=== PATIENT | female | born 1950 | race Caucasian/White ===

== ENCOUNTER 2020-06-17 17:50 | Inpatient (IN) | payer MEDICARE, OTHER ==
[~2020-06-17] VITALS: Ht 162.6 cm; Wt 108.2 kg
[~2020-06-17 17:50] MED LIST: ANAS1TAB50 PO; CALC-1026 PO; FOLI1TAB16 PO; GABA300C PO; MOME17SP; MONT10TA22 PO; RISE35TA PO; SERT50TA PO; VIT500LI PO; WARF5TAB PO
[2020-06-17] MEDS ORDERED: ALBUTEROL FS 2.5 MG/3 ML VIAL.NEB ONE (17:58)
[2020-06-17] MEDS ORDERED: ALBUTEROL FS 2.5 MG/3 ML VIAL.NEB NEB ONE (18:00)
[2020-06-17] MEDS ORDERED: methylPREDNISolone SOD SUCC 125 MG/2ML VIAL IV ONE (18:00)
[2020-06-17] MEDS ORDERED: IPRATROPIUM NEB FS 0.5 MG/2.5 ML AMPUL.NEB NEB ONE (18:00)
[2020-06-17] MEDS ORDERED: IV NS 0.9% 500 ML IV ONE (18:00)
[2020-06-17] MEDS ORDERED: Magnesium 1GM/D5W 100ML PREMIX 100 ML IV SCH (18:00)
[2020-06-17] MEDS ORDERED: Magnesium 1GM/D5W 100ML PREMIX 100 ML IV ONE (18:03)
[2020-06-17] MEDS ORDERED: methylPREDNISolone SOD SUCC 125 MG/2ML VIAL ONE (18:03)
--- NOTE | 2020-06-17 18:54 | NUR ---
BIBRA39 FROM HOME, C/O SOB AND LOWER ABDOMINAL PAIN, GIVEN ALBUTEROL TX IN FIELD. O2 SAT 88%RA. BG 172. PLACED AT 2LPM O2 VIA NC, O2 SATURATION AFTER WAS TO ER BED 08, HOOKED TO DIRECTOR SHIP, BP CUFF AND POX, CHANGED TO HOSP GOWN, WARM BLANKET PROVIDED, PATIENT AAOx 4, NAD NOTED, DR LOCO AT BEDSIDE
--- NOTE | 2020-06-17 19:12 | NUR ---
ONGOING BREATHING TX
--- NOTE | 2020-06-17 19:13 | NUR ---
REPORT GIVEN TO FARIDEH RICARDO FOR DEVANTE
[2020-06-17 19:29] LABS: CALCIUM, SERUM 8.5 mg/dL (8.5-10.1); CARBON DIOXIDE 31 mmol/L (21-32); CHLORIDE 100 mmol/L (98-107); CREATININE 0.9 mg/dL (0.6-1.3); GLUCOSE 175 mg/dL (74-106); POTASSIUM 4.2 mmol/L (3.5-5.1); SODIUM SERUM 135 mmol/L (136-145); UREA NITROGEN, BLOOD 15 mg/dL (7-18)
[2020-06-17 19:41] LABS: ALANINE AMINOTRANSFERASE 15 U/L (12-78); ALBUMIN 2.7 g/dL (3.4-5.0); ALKALINE PHOSPHATASE 41 U/L (46-116); ASPARTATE AMINOTRANSFERASE 13 U/L (15-37); B-TYPE NATRIURETIC PEPTIDE 171 PG/ML (0-125); BILIRUBIN,DIRECT 0.2 mg/dL (0.0-0.2); BILIRUBIN,TOTAL 0.6 mg/dL (0.2-1.0); TOTAL PROTEIN, SERUM 6.7 g/dL (6.4-8.2)
--- NOTE | 2020-06-17 19:59 | NUR ---
PATIENT PLACED ON 2L OF NASAL CANNULA.
--- NOTE | 2020-06-17 19:59 | NUR ---
BREATHING TREATMENT FINISHED.
[2020-06-17 20:08] LABS: BASOPHILS % (AUTO) 0.9 % (0.0-2.0); EOSINOPHILS % (AUTO) 0.7 % (0.0-6.0); HEMATOCRIT 37 % (33-45); HEMOGLOBIN 11.6 g/dL (11.5-14.8); LYMPHOCYTES # (AUTO) 0.6 /CMM (0.8-4.8); LYMPHOCYTES % (AUTO) 21.3 % (20.0-44.0); MEAN CORPUSCULAR HGB CONC 31 g/dl (31.0-36.0); MEAN CORPUSCULAR VOLUME 85 fL (82-100); MONOCYTES # (AUTO) 0.1 /CMM (0.1-1.30); MONOCYTES % (AUTO) 2.5 % (2.0-12.0); NEUTROPHILS # (AUTO) 2.1 /CMM (1.8-8.9); NEUTROPHILS % (AUTO) 74.6 % (43.0-81.0); RED BLOOD CELL COUNT(AUTO) 4.38 MIL/uL (4.0-5.2); WHITE BLOOD COUNT (AUTO) 2.8 K/uL (4.3-11.0)
--- NOTE | 2020-06-17 20:12 | NUR ---
REC'D NEG COVID RESULTS. AWARE
--- NOTE | 2020-06-17 20:26 | NUR ---
called [facility]. [employer] consultant was paged
[2020-06-17] MEDS ORDERED: HYDROCODONE/APAP 5/325MG TABLET ONE (20:30)
[2020-06-17] MEDS ORDERED: HYDROCODONE/APAP 5/325MG TABLET PO ONE (20:30)
--- NOTE | 2020-06-17 20:30 | NUR ---
PATIENT C/O PAIN MD NOTIFIED.
[2020-06-17 20:56] LABS: PLATELET COUNT (AUTO) 78 /CMM (150-450)
[2020-06-17 20:59] LABS: EOSINOPHILS % (MANUAL) 2 % (0-4); LYMPHOCYTES % (MANUAL) 25 % (16-48); MONOCYTES % (MANUAL) 3 % (0-11.0); NEUTROPHILS % (MANUAL) 70 (42-76)
--- NOTE | 2020-06-17 21:01 | NUR ---
REPORT GIVEN TO AMANDA RICARDO FOR DEVANTE.
--- NOTE | 2020-06-17 21:25 | NUR ---
VICE PRESIDENT PAYERVB NET PROGRAMMER NOTE ADMITTED 70F PATIENT WITH ADMITTING DIAGNOSIS OF COPD EXACERBATION. HX OF COPD, HTN. LEFT BREAST CANCER, HX OF LLE DVT, LARGE VENTRAL HERNIA, ALCOHOLISM. PT A/O X4. BREATHING EVEN AND UNLABORED WITH NO SOB ON 2LPM OF O2. 02 SATURATION 99%. BODY ASSESSMENT DONE. RIGHT HAND IV 22G NOTED. PATENT AND INTACT. BED BATH PROVIDED. BELONGING INVENTORY COMPLETED. ALL NEEDS RENDERED. KEPT CLEAN AND DRY. BED IN LOWEST POSITIONED. CALL LIGHT WITHIN REACH. WILL CONTINUE TO MONITOR.
--- NOTE | 2020-06-17 21:32 | NUR ---
TAKEN UP TO ASSIGNED ROOM FOR DEVANTE.
[2020-06-17] MEDS ORDERED: ACETAMINOPHEN 325 MG TABLET PO PRN (22:30)
[2020-06-17] MEDS ORDERED: FUROSEMIDE 20 MG/2 ML VIAL IV SCH (22:30)
[2020-06-17] MEDS ORDERED: IPRATROPIUM NEB FS 0.5 MG/2.5 ML AMPUL.NEB NEB PRN (22:30)
[2020-06-17] MEDS ORDERED: MORPHINE SULFATE INJ 2 MG/ML DISP.SYRIN IV PRN (22:30)
[2020-06-17] MEDS ORDERED: ALBUTEROL FS 2.5 MG/0.5 ML VIAL.NEB NEB PRN (22:30)
[2020-06-17] MEDS ORDERED: MAGNESIUM HYDROXIDE 30 ML UDC PO PRN (22:30)
[2020-06-17] MEDS ORDERED: TEMAZEPAM 15 MG CAPSULE PO PRN (22:30)
[2020-06-17 22:54] VITALS: BP 106/53
[2020-06-17] MEDS ORDERED: LEVOFLOXACIN 500 MG /D5W 100ML 100 ML IV ONE (23:12)
[2020-06-17] MEDS: LEVOFLOXACIN 500 MG /D5W 100ML 500 MG in PREMIX 1 EA IV SCH (23:25)
[2020-06-18] VITALS: BP 105/33
--- NOTE | 2020-06-18 00:01 | NUR ---
BOAT CAMP OPERATOR NOTE INFORMED DR. HALL THAT PT STATED SHE HAS SEVER ANXIETY AND INSOMNIA. PT STATED SHE TAKES AT HOME OXYCIDINE 5MG Q6 ROUTINE, AMBIEN 10 MG QHS, TRAZADONE 100MG QHS, XANAZ 1MG TID AND PRN. PT ALSO STATED SHE IS DIABETIC AND TAKING INSULIN AT HOME. INFORMED MD MEDICATION RECONCILIATION NEEDS TO BE DONE. WILL CONTINUE TO FOLLOW UP WITH MD FOR FURTHER ORDERS.
--- NOTE | 2020-06-18 00:09 | NUR ---
HOTEL ADMINISTRATIVE ASSISTANT NOTE NEW ORDER RECEIVED FROM DR. HALL TO DC RESTORIL 7.5MG AND START AMBIEN 10MG PO QHS PRN PER PT REQUEST. NEW ORDER NOTED AND CARRIED OUT.
[2020-06-18] MEDS ORDERED: ZOLPIDEM TARTRATE 10 MG TABLET PO PRN (00:30)
[2020-06-18] MEDS ORDERED: DEXTROSE 50%-WATER 50 ML DISP.SYRIN IV PRN (00:30)
[2020-06-18] MEDS: BLOOD SUGAR DIAGNOSTIC 1 EACH STRIP IN SCH ×5 (00:48→22:21)
[2020-06-18] MEDS: TRAZODONE 50 MG TABLET PO SCH ×2 (00:52→22:00)
[2020-06-18] MEDS: *INSULIN REGULAR(HUMULIN R)HUM 100 UNIT/ML VIAL SQ PRN ×2 (00:59→22:22)
--- NOTE | 2020-06-18 03:00 | NUR ---
CONSTRUCTION COORDINATOR NOTE RH IV SITE DISLODGED. NEW IV REINSERTED ON LEFT FOREARM WITH 22 G.PT TOLERATED PROCEDURE WELL. GOOD BLOOD RETURN NOTED.
[2020-06-18 04:00] VITALS: BP 122/68
[2020-06-18] MEDS: methylPREDNISolone SOD SUCC 40 MG/ML VIAL IV SCH ×3 (04:56→22:00)
[2020-06-18] MEDS: oxyCODONE IR immediate release 5 MG PO PRN ×2 (04:57→12:13)
[2020-06-18 06:33] LABS: BASOPHILS % (AUTO) 0.3 % (0.0-2.0); EOSINOPHILS % (AUTO) 0.1 % (0.0-6.0); HEMATOCRIT 35 % (33-45); LYMPHOCYTES # (AUTO) 0.1 /CMM (0.8-4.8); LYMPHOCYTES % (AUTO) 8.4 % (20.0-44.0); MEAN CORPUSCULAR HGB CONC 31 g/dl (31.0-36.0); MEAN CORPUSCULAR VOLUME 85 fL (82-100); NEUTROPHILS # (AUTO) 1.4 /CMM (1.8-8.9); NEUTROPHILS % (AUTO) 89.2 % (43.0-81.0); PLATELET COUNT (AUTO) 62 /CMM (150-450); RED BLOOD CELL COUNT(AUTO) 4.13 MIL/uL (4.0-5.2)
[2020-06-18 06:56] LABS: ALANINE AMINOTRANSFERASE 12 U/L (12-78); ALBUMIN 2.4 g/dL (3.4-5.0); ALKALINE PHOSPHATASE 34 U/L (46-116); ASPARTATE AMINOTRANSFERASE 18 U/L (15-37); BILIRUBIN,TOTAL 0.4 mg/dL (0.2-1.0); CALCIUM, SERUM 8.4 mg/dL (8.5-10.1); CARBON DIOXIDE 26 mmol/L (21-32); CHLORIDE 102 mmol/L (98-107); CREATININE 0.9 mg/dL (0.6-1.3); GLUCOSE 177 mg/dL (74-106); MAGNESIUM 2.3 mg/dL (1.8-2.4); PHOSPHORUS 3.3 mg/dL (2.5-4.9); POTASSIUM 4.7 mmol/L (3.5-5.1); SODIUM SERUM 136 mmol/L (136-145); TOTAL PROTEIN, SERUM 6.2 g/dL (6.4-8.2); UREA NITROGEN, BLOOD 15 mg/dL (7-18)
--- NOTE | 2020-06-18 07:00 | NUR ---
PLATFORM POWER TECHNICIAN RECEIVED PATIENT IN BED, ASLEEP AND EASILY AROUSED. PATIENT STATED SHE IS COMFORTABLE. A/OX4, ABLE TO MAKE NEEDS KNOWN. ON 02 2LMP VIA NASAL CANNULA. ON HEART MONITOR, SR WITH PVC. WITH PERINEAL REDNESS AND LLE DISCOLORATION. NO S/S OF ANY SKIN BREAKDOWN. PATIENT IS AMBULATORY WITH ASSIST. IV LFA 22G. PATENT AND INTACT, FLUSHING WELL. RECEIVED PAIN MEDICATION 0457. PAIN MEDICATION EFFECTIVE, NO S/S OF ANY PAIN AT THIS TIME. ON ACCUCHECK, NO S/S OF ANY HYPO/HYPERGLYCEMIA. PATIENT INDEPENDENTLY TURNS. RECEIVED REPORT FROM PM SHIFT OF WBC 1.6, WILL FOLLOW UP WITH MD. BED LOCKED AND IN LOWEST POSITION. 2XRAILS UP. CALL LIGHT WITHIN REACH. ALL SAFETY MEASURES IMPLEMENTED PER HOSPITAL PROTOCOL.
[2020-06-18 07:11] LABS: WHITE BLOOD COUNT (AUTO) 1.6 K/uL (4.3-11.0)
[2020-06-18 07:13] LABS: CHOLESTEROL 163 mg/dL (<200); HDL CHOLESTEROL 55 mg/dL (40-60); LDL 98 mg/dL (0-99); TRIGLYCERIDES 43 mg/dL (30-150)
--- NOTE | 2020-06-18 07:15 | NUR ---
pattern keeper note spoke with kyara from lab with wbc of 1.6 reported . lab value endorsed to joy RICARDO.
--- NOTE | 2020-06-18 07:18 | NUR ---
returned goods repairer closing note PT IN BED. ASLEEP BUT EASILY AROUSABLE. A/O X4. BREATHING EVEN AND UNLABORED WITH NO SOB ON 2LPM OF O2. LFA IV 22G PATENT AND INTACT. DENIES ANY PAIN OR DISCOMFORT. ALL NEEDS RENDERED. KEPT CLEAN AND DRY. BED IN LOWEST POSITIONED. CALL LIGHT WITHIN REACH. WILL ENDORSE TO AM NURSE FOR CONTINUITY OF CARE.
[2020-06-18 08:00] VITALS: BP 110/48
--- NOTE | 2020-06-18 08:00 | NUR ---
ARMATURE WINDER REPAIR PATIENT EXPERIENCING HIGH LEVEL OF ANXIETY. TALKED TO PATIENT IN REGARDS TO BREATH CONTROL AND RELAXATION TECHNIQUES. PATIENT EDUCATION 3X TIMES.
[2020-06-18] MEDS ORDERED: TBO-FILGRASTIM 300 MCG/0.5 ML SYRINGE SQ ONE (09:00)
--- NOTE | 2020-06-18 09:39 | NUR ---
WOUND CARE CONSULT: PT PRESENTS WITH RASHES TO SKINFOLDS AND BUTTOCKS WELL LEFT BREAST WOUND, PRESENT ON ADMISSION. RECOMMEND SURGICAL CONSULT. DR LAURYN MEDINA NOTIFIED OF CONSULT REQUEST. RECOMMENDATIONS MADE FOR WOUND CARE AND SKIN PROTECTION. DISCUSSED WITH NURSING STAFF. [facility]. IN AGREEMENT WITH PLAN OF CARE. Addendum: 06/18/20 at 0942 by WALTER CHIU WNDNU Amended: Links added.
[2020-06-18] MEDS: PANTOPRAZOLE 40 MG TABLET.DR PO SCH (09:42)
[2020-06-18] MEDS: ONDANSETRON HCL/PF 4 MG/2 ML VIAL IVP PRN ×2 (09:42→17:24)
[2020-06-18] MEDS: FUROSEMIDE 40 MG/4 ML VIAL IV SCH ×3 (09:42→17:24)
[2020-06-18] MEDS: FLUTICASONE/VILANTEROL 1 EACH BLST.W.DEV IH SCH (09:42)
[2020-06-18] MEDS: DOCUSATE SODIUM 100 MG CAPSULE PO SCH ×2 (09:44→17:21)
[2020-06-18] MEDS: NICOTINE PATCH (21MG) 21 MG PATCH.TD24 TD SCH (09:45)
[2020-06-18] MEDS: INSULIN REGULAR, HUMAN 100 UNIT/ML 3 ML VIAL SQ PRN ×3 (09:47→17:47)
[2020-06-18] MEDS: ALPRAZOLAM 1 MG TABLET PO PRN ×2 (09:53→23:28)
[2020-06-18] MEDS ORDERED: Z GUARD REMEDY 2 OZ OINT TP PRN (10:00)
[2020-06-18] MEDS: Z GUARD REMEDY 2 OZ OINT TP SCH (10:06)
[2020-06-18] MEDS ORDERED: WARF-58 PO (10:14)
[2020-06-18] MEDS ORDERED: SULI200T4 PO (10:14)
[2020-06-18] MEDS ORDERED: PROP10TA68 PO (10:14)
[2020-06-18] MEDS ORDERED: POTA8TAB3 PO (10:14)
[2020-06-18] MEDS ORDERED: INSU100I14 SQ (10:14)
[2020-06-18] MEDS ORDERED: SPIR25TA6 PO (10:14)
[2020-06-18] MEDS ORDERED: SUCR1TAB PO (10:14)
[2020-06-18] MEDS ORDERED: BACL10TA PO (10:14)
[2020-06-18] MEDS ORDERED: OXYC5TAB3 PO (10:14)
[2020-06-18] MEDS ORDERED: ERGO500014 PO (10:14)
[2020-06-18] MEDS ORDERED: TRAZ-257 PO (10:14)
[2020-06-18] MEDS ORDERED: ALPR2TAB7 PO (10:14)
[2020-06-18] MEDS ORDERED: OMEP40CA13 PO (10:14)
[2020-06-18] MEDS ORDERED: ALEN70TA6 PO (10:14)
[2020-06-18 10:55] LABS: LYMPHOCYTES % (MANUAL) 8 % (16-48); MONOCYTES % (MANUAL) 6 % (0-11.0); NEUTROPHILS % (MANUAL) 86 (42-76)
[2020-06-18 12:00] VITALS: BP 116/34
[2020-06-18] MEDS: GABAPENTIN 300 MG CAPSULE PO SCH ×2 (13:05→17:21)
[2020-06-18] MEDS: BACLOFEN (10 MG) 10 MG TABLET PO SCH ×2 (13:06→17:26)
[2020-06-18] MEDS: ANASTROZOLE 1 MG TABLET PO SCH (13:06)
[2020-06-18] MEDS: ALBUTEROL HALF STRENGTH 1.25 MG/3 ML VIAL.NEB NEB SCH ×2 (13:30→20:50)
[2020-06-18] MEDS: IPRATROPIUM NEB FS 0.5 MG/2.5 ML AMPUL.NEB NEB SCH ×2 (13:30→20:50)
--- NOTE | 2020-06-18 15:46 | NUR ---
SS Consult: Mitchell Moise ordered SS consult for this 70-year old [facility] Female in [place] who is being treated for COPD. Per EMR, the pt. has medical Hx of Stage III Cancer in Left Breast ; DVT (Left leg); Cirrhosis. The pt. is lying in bed awake and was receptive to meeting with SW. The pt. is alert and oriented x 4. Per pt., she lives alone at home as her , Mohan Nicholas 4.5 years ago. The pt. began crying and stated that the loss of her as well as the decline of health have impacted her emotional well-being. The pt. stated that she feels depressed. Pt. stated she has no psych history or diagnoses. SW used validation and normalized her feelings. SW offered Home Health SS consult upon discharge for potential in-home therapy and resource referrals. The pt. expressed understanding and was agreeable and stated, Yes, thank you. The pt. stated that she does not have any family in the [place] and her only son resides [place]. Per pt., her point of contact is her long-time friend, Ramona Beverly [phone]. The pt. stated she smokes 15 to 20 cigarettes/day and denies current ETOH consumption. The pt. stated that she has a [facility] caregiver that cooks and cleans her home about 6 hrs./day. Pt stated that she has nurse for ADLs, as well as wound nurse. The pt. stated that she ambulates from the bed to the bathroom in her home. Pt. may require front wheel walker or wheel chair upon discharge as she is currently too weak to ambulate. Per pt. She received $928.72 in SSI as well as food stamps. SW notified the care process manager, Ivis who will follow up with discharge planning.
[2020-06-18 16:00] VITALS: BP 109/34
[2020-06-18] MEDS ORDERED: SULINDAC 200 MG TABLET PO SCH (17:00)
--- NOTE | 2020-06-18 17:11 | NUR ---
Please obtain pathology and medical records from primary oncologist Liya Clinton
[2020-06-18] MEDS: SUCRALFATE 1 G TABLET PO SCH ×2 (17:21→22:00)
[2020-06-18] MEDS: PROPRANOLOL HCL 10 MG TABLET PO SCH (17:23)
[2020-06-18] MEDS: CLOTRIMAZOLE 1% 15 GM TUBE TP SCH (17:25)
[2020-06-18 17:52] LABS: IRON, SERUM 229 ug/dl (50-175); TOTAL IRON BINDING CAPACITY 306 ug/dl (250-450)
[2020-06-18 18:07] LABS: FERRITIN 135 ng/mL (8-388)
--- NOTE | 2020-06-18 19:20 | NUR ---
RN OPENING NOTES: RECEIVED PT A/OX4; PATIENT IN BED RESTING COMFORTABLY. PATIENT IN NO S/SX OF ACUTE DISTRESS AT THIS TIME. NO SOB NOTED. PATIENT'S BREATHING IS EVEN AND UNLABORED. PATIENT IS ON 2L OF OXYGEN VIA NC; TOLERATING WELL. PATIENT ON CARDIAC DIET AT THIS TIME. PATIENT ON TELE MONITORING READING SINUS RHYTHM HR IS @70s AT THE TIME OF RECEIPT. NOTED IV SITE ON L FOREARM #22 ; PATENT, INTACT AND FLUSHING WELL NO S/S OF INFECTION OR INFILTRATION. WITH IV FLUID RUNNING ORDERED. SAFETY MEASURES HAVE BEEN PROVIDED AND IMPLEMENTED. PATIENT BED ALARM IS ON. HEAD OF BED ELEVATED. BED IS LOCKED, IN LOWEST POSITION AND SIDE RAILS UP. CALL LIGHT WITHIN REACH OF THE PATIENT.WILL CONTINUE TO MONITOR AND REASSESS FOR ANY CHANGES AND WILL CARRY OUT ANY ONGOING AND ACTIVE MD ORDER.
--- NOTE | 2020-06-18 19:34 | NUR ---
SUPERVISOR STAVE CUTTING PATIENT STABLE AT THIS TIME. PATIENT A/O X4 PATIENT SHOWS ANXIETY. WITH CARE. PATIENT ALSO STABLE SHE DOES NOT LIKE BEING ALONE. ALL MEDICATION GIVEN. LFA 20 PATIENT LINES PATENT AND INTACT. ALL WOUND TX COMPLETED. BED LOCKED LOWEST POSITION CALL LIGHT WITH IN REACH ALL SAFETY MEASURE IMPLEMENTED PER HOSPITAL POLICY. ALL ORDERS COMPLETE 2X RAILS. UP
[2020-06-18 20:00] VITALS: BP 113/52
--- NOTE | 2020-06-18 21:45 | NUR ---
RN NOTES RECEIVED CALL FROM LAB, SPOKE WITH OPHELIA. LACTIC ACID 2.8. WILL INFORM MD REGARDING CRITICAL LAB RESULT. CHILD CARE DEVELOPMENT SPECIALIST MADE AWARE.
[2020-06-18] MEDS: LEVOFLOXACIN 500 MG /D5W 100ML 500 MG in PREMIX 1 EA IV SCH (22:00)
--- NOTE | 2020-06-18 22:00 | NUR ---
RN NOTES NO CHANGE IN PATIENT CONDITION AT THIS TIME PATIENT VITALS STABLE, NO SIGNS OF ACUTE RESPIRATORY DISTRESS. TIME LOCK EXPERT MADE AWARE. WILL CONTINUE TO MONITOR AND REASSESS FOR ANY CHANGES THROUGHOUT THE SHIFT.
--- NOTE | 2020-06-18 22:05 | NUR ---
RN NOTES RECEIVED CALL FROM RADIOLOGY- US DVT. RESULT : 1. DEEP VENOUS THROMBOSIS INVOLVING THE RIGHT SUPERFICIAL FEMORAL AND POPLITEAL VEINS. 2. LEFT COMMON FEMORAL AND SUPERFICIAL FEMORAL VEINS COULD NOT BE ACCESSED AND THE EVALUATED. 3. PATENT LEFT POPLITEAL VEIN -WILL INFORM MD/ONCALLMD. COOK SPECIALTY MADE AWARE.
--- NOTE | 2020-06-18 23:00 | NUR ---
RN NOTES COMMUNICATED WITH /SHIRA GRESHAM REGARDING THE FOLLOWIN. RESULT OF US DVT FOLLOWS: DEEP VENOUS THROMBOSIS INVOLVING THE RIGHT SUPERFICIAL FEMORAL AND POPLITEAL VEINS. LEFT COMMON FEMORAL AND SUPERFICIAL FEMORAL VEINS COULD NOT BE ACCESSED AND THE EVALUATED. PATENT LEFT POPLITEAL VEIN. 2. PT REQUEST FOR SLEEPING MEDS : AMBIEN 3. LACTIC ACID RESULT CRITICAL LAB 2.8 -DR. HALL ORDERED AMBIEN 10MG PRN -PHOTOGRAPH TINTER MADE AWARE. Addendum: 06/19/20 at 0325 by SAUL SYED RN -PER DR. HALL THERE'S NO ORDERS FOR US DVT RESULT AND FOR THE CRITICAL LAB (LACTIC ACID) PHOTOGRAPH TINTER MADE AWARE.
[2020-06-18] MEDS: ZOLPIDEM TARTRATE 10 MG TABLET PO PRN (23:29)
[2020-06-19] VITALS: BP 102/51
[2020-06-19] MEDS: IPRATROPIUM NEB FS 0.5 MG/2.5 ML AMPUL.NEB NEB SCH ×4 (01:17→20:03)
[2020-06-19] MEDS: ALBUTEROL HALF STRENGTH 1.25 MG/3 ML VIAL.NEB NEB SCH ×4 (01:18→20:03)
--- NOTE | 2020-06-19 02:00 | NUR ---
RN NOTES NO CHANGE IN PATIENT CONDITION AT THIS TIME PATIENT VITALS STABLE, NO SIGNS OF ACUTE RESPIRATORY DISTRESS. HAIR SPECIALIST MADE AWARE. WILL CONTINUE TO MONITOR AND REASSESS FOR ANY CHANGES THROUGHOUT THE SHIFT.
[2020-06-19 04:00] VITALS: BP 102/52
[2020-06-19] MEDS: methylPREDNISolone SOD SUCC 40 MG/ML VIAL IV SCH ×3 (04:13→21:08)
[2020-06-19] MEDS: oxyCODONE IR immediate release 5 MG PO PRN ×3 (04:13→18:55)
--- NOTE | 2020-06-19 05:00 | NUR ---
RN NOTES RN AND DISPATCH ASSOCIATE TRIED TO CLEAN PT PART OF PATIENT/TOTAL CARE, BUT PATIENT REFUSED. EXPLAINED RISK AND BENEFITS BUT PT REFUSED.CHARGE NURSE MADE AWARE.
--- NOTE | 2020-06-19 06:44 | NUR ---
RN CLOSING NOTES PATIENT REMAINS IN ROOM IN NO SIGNS OF RESPIRATORY DISTRESS. PATIENT SATURATING 95% OF 02. VITAL SIGNS WNL. IV LINE MAINTAINED, INTACT, PATENT AND FLUSHING, NO SITE REDNESS OR INFILTRATION. SAFETY PRECAUTIONS IN PLACE AND COMFORT MEASURES RENDERED. BED IN LOWEST POSITION, CALL LIGHT WITHIN REACH, BREAKS ON, SIDE RAILS UP. ALL NEEDS ATTENDED, MEDICATIONS GIVEN SCHEDULED AND ORDERED ; SHIFT ASSESSMENT/BEDBATH/SKIN CARE DONE. PATIENT KEPT CLEAN AND DRY. WILL ENDORSE TO INCOMING SHIFT FOR DEVANTE WITH ALL PERTINENT INFO REGARDING PATIENT STATUS.
[2020-06-19 06:54] LABS: ALANINE AMINOTRANSFERASE 17 U/L (12-78); ALBUMIN 2.6 g/dL (3.4-5.0); ALKALINE PHOSPHATASE 46 U/L (46-116); ASPARTATE AMINOTRANSFERASE 16 U/L (15-37); BASOPHILS # (AUTO) 0.1 /CMM (0.0-0.2); BILIRUBIN,TOTAL 0.6 mg/dL (0.2-1.0); CALCIUM, SERUM 8.6 mg/dL (8.5-10.1); CARBON DIOXIDE 27 mmol/L (21-32); CHLORIDE 99 mmol/L (98-107); CREATININE 0.9 mg/dL (0.6-1.3); GLUCOSE 163 mg/dL (74-106); HEMATOCRIT 38 % (33-45); HEMOGLOBIN 12.1 g/dL (11.5-14.8); LYMPHOCYTES # (AUTO) 2.4 /CMM (0.8-4.8); MAGNESIUM 2.1 mg/dL (1.8-2.4); MEAN CORPUSCULAR HGB CONC 32 g/dl (31.0-36.0); MEAN CORPUSCULAR VOLUME 83 fL (82-100); MONOCYTES # (AUTO) 0.4 /CMM (0.1-1.30); MONOCYTES % (AUTO) 4.4 % (2.0-12.0); NEUTROPHILS # (AUTO) 5.7 /CMM (1.8-8.9); NEUTROPHILS % (AUTO) 66.6 % (43.0-81.0); PHOSPHORUS 3.6 mg/dL (2.5-4.9); PLATELET COUNT (AUTO) 64 /CMM (150-450); POTASSIUM 4.9 mmol/L (3.5-5.1); RED BLOOD CELL COUNT(AUTO) 4.54 MIL/uL (4.0-5.2); SODIUM SERUM 134 mmol/L (136-145); TOTAL PROTEIN, SERUM 6.8 g/dL (6.4-8.2); UREA NITROGEN, BLOOD 22 mg/dL (7-18); WHITE BLOOD COUNT (AUTO) 8.6 K/uL (4.3-11.0)
[2020-06-19 08:00] VITALS: BP 106/50
--- NOTE | 2020-06-19 08:00 | NUR ---
RN OPENING NOTES PATIENT IS RESTING IN BED IN NO SIGNS OF RESPIRATORY DISTRESS NOTED. PATIENT SATURATING 95% OF 02 WITH 2L NASAL CANNULA. IV LINE MAINTAINED IN LFA #22, INTACT, PATENT AND FLUSHING, NO SITE REDNESS OR INFILTRATION NOTED. SAFETY PRECAUTIONS ARE IMPLEMENTED BY HOSPITAL PROTOCOL. BED IS IN LOWEST POSITION, CALL LIGHT WITHIN REACH AND SIDE RAILS UPX2 . WILL CONTINUE TO MONITOR.
[2020-06-19] MEDS: CALCIUM CARBONATE (1250) 500 MG TABLET PO SCH (08:12)
[2020-06-19] MEDS: NICOTINE PATCH (21MG) 21 MG PATCH.TD24 TD SCH (08:12)
[2020-06-19] MEDS: DOCUSATE SODIUM 100 MG CAPSULE PO SCH ×2 (08:12→17:15)
[2020-06-19] MEDS: PROPRANOLOL HCL 10 MG TABLET PO SCH ×3 (08:17→17:00)
[2020-06-19] MEDS: SUCRALFATE 1 G TABLET PO SCH ×4 (08:17→21:08)
[2020-06-19] MEDS: GABAPENTIN 300 MG CAPSULE PO SCH ×3 (08:17→17:15)
[2020-06-19] MEDS: ASCORBIC ACID 500 MG TABLET PO SCH (08:17)
[2020-06-19] MEDS: SERTRALINE HCL 50 MG TABLET PO SCH ×2 (08:17→09:00)
[2020-06-19] MEDS: ALPRAZOLAM 1 MG TABLET PO PRN ×3 (08:17→21:08)
[2020-06-19] MEDS: SPIRONOLACTONE 25 MG TABLET PO SCH (08:18)
[2020-06-19] MEDS: FOLIC ACID 1 MG TABLET PO SCH (08:18)
[2020-06-19] MEDS: PANTOPRAZOLE 40 MG TABLET.DR PO SCH (08:18)
[2020-06-19] MEDS: BACLOFEN (10 MG) 10 MG TABLET PO SCH ×3 (08:18→17:15)
[2020-06-19] MEDS: FLUTICASONE PROPIONATE 16 GM BOTTLE NS SCH (08:19)
[2020-06-19] MEDS: FLUTICASONE/VILANTEROL 1 EACH BLST.W.DEV IH SCH (08:19)
[2020-06-19] MEDS: BLOOD SUGAR DIAGNOSTIC 1 EACH STRIP IN SCH ×4 (08:19→22:59)
[2020-06-19] MEDS: Z GUARD REMEDY 2 OZ OINT TP SCH (08:20)
[2020-06-19] MEDS: CLOTRIMAZOLE 1% 15 GM TUBE TP SCH ×2 (08:20→17:16)
[2020-06-19] MEDS: ANASTROZOLE 1 MG TABLET PO SCH (08:56)
[2020-06-19] MEDS: INSULIN REGULAR, HUMAN 100 UNIT/ML 3 ML VIAL SQ PRN ×3 (08:58→18:31)
[2020-06-19 09:00] VITALS: BP 106/50
[2020-06-19] MEDS ORDERED: POLYVINYL ALCOHOL 15 ML BOTTLE EACHEYE PRN (09:00)
[2020-06-19] MEDS ORDERED: ERGOCALCIFEROL (VITAMIN D 2) 50,000 UNIT CAPSULE PO SCH (09:00)
[2020-06-19] MEDS ORDERED: BISACODYL (5 MG) 5 MG TABLET.DR PO PRN (09:00)
[2020-06-19] MEDS ORDERED: MOMETASONE FUROATE NASAL SUSP 17 GM BOTTLE SCH (09:00)
[2020-06-19] MEDS: ONDANSETRON HCL/PF 4 MG/2 ML VIAL IVP PRN ×3 (09:51→21:08)
--- NOTE | 2020-06-19 10:02 | NUR ---
RN NOTES PT REFUSED PROPRANOLOL
--- NOTE | 2020-06-19 10:03 | NUR ---
RN NOTES PT ASKED 2 MG OF ZANAX DOCTOR IS AWARE
--- NOTE | 2020-06-19 10:03 | NUR ---
RN NOTES PT IS FEELING NAUSEATED GAVE ZOFRAN
--- NOTE | 2020-06-19 10:09 | NUR ---
RN NOTES PT REFUSED ZOLOFT STATES MAKES HER CRAZY
[2020-06-19 11:20] LABS: LYMPHOCYTES % (MANUAL) 7 % (16-48); MONOCYTES % (MANUAL) 6 % (0-11.0); NEUTROPHILS % (MANUAL) 87 (42-76)
[2020-06-19] MEDS: FUROSEMIDE 40 MG/4 ML VIAL IV SCH ×3 (11:20→18:55)
[2020-06-19] MEDS: LIDOCAINE 5% (PATCH) 1 EA PATCH TP SCH (11:23)
[2020-06-19] MEDS ORDERED: CALCIUM CARBONATE 500 MG TAB.CHEW PO ONE (14:30)
[2020-06-19 16:00] VITALS: BP 102/48
[2020-06-19] MEDS: MONTELUKAST SODIUM (10MG) 10 MG TABLET PO SCH (17:15)
--- NOTE | 2020-06-19 18:21 | NUR ---
RN CLOSING NOTES PATIENT REMAINS IN ROOM IN NO SIGNS OF RESPIRATORY DISTRESS. PATIENT SATURATING 95% OF 02 VITAL SIGNS WNL. IV LFA #22 LINE MAINTAINED, INTACT, PATENT AND FLUSHING, NO SITE REDNESS OR INFILTRATION. SAFETY PRECAUTIONS ARE IMPLEMENTED BY HOSPITAL POLICY AND COMFORT MEASURES RENDERED. BED IS IN LOWEST POSITION, CALL LIGHT WITHIN REACH, BREAKS ON, SIDE RAILS UPX2. ALL NEEDS WERE ATTENDED, MEDICATIONS GIVEN SCHEDULED AND ORDERED ; SHIFT ASSESSMENT/BEDBATH/SKIN CARE DONE. PATIENT KEPT CLEAN AND DRY. WILL ENDORSE TO INCOMING SHIFT FOR DEVANTE
--- NOTE | 2020-06-19 19:13 | NUR ---
RN NOTES GAVE PT OXYCODONE FOR GENERALIZED PAIN. AND ZOFRAN FOR NAUSEATED.
--- NOTE | 2020-06-19 19:23 | NUR ---
MS RN OPENING NOTES PATIENT AWAKE IN BED. A/OX4. ON 2L NC; NO S/S OF ACUTE RESPIRATORY DISTRESS; BREATHING IS EVEN AND UNLABORED. NO C/O PAIN AT THIS TIME; PER DAY SHIFT RN, PRN OXYCODONE GIVEN AT 1850. IV PRESENT ON LEFT FA, SIZE 22, INTACT & PATENT WITH NS RUNNING TKO. SAFETY MEASURES IN PLACE AND PATIENT'S NEEDS MET. BED LOCKED, HOB ELEVATED, SIDE RAILS X2, CALL LIGHT WITHIN REACH. WILL CONTINUE TO MONITOR.
[2020-06-19 20:00] VITALS: BP_SYST 117; BP_DIAS 42; BP_DIAS 81
[2020-06-19] MEDS: TRAZODONE 50 MG TABLET PO SCH (21:08)
--- NOTE | 2020-06-19 21:43 | NUR ---
CALLED RN @1500 FOR PULMONARY ANGIOGRAM, RN STATES PT IS HARD STICK FOR IV ACCESS. RN SAID WOULD CALL BACK ONCE THEY HAVE IV ACCESS FOR CT SCAN.
[2020-06-19] MEDS: LEVOFLOXACIN 500 MG /D5W 100ML 500 MG in PREMIX 1 EA IV SCH (22:44)
[2020-06-19] MEDS: ZOLPIDEM TARTRATE 10 MG TABLET PO PRN (22:44)
[2020-06-19] MEDS: *INSULIN REGULAR(HUMULIN R)HUM 100 UNIT/ML VIAL SQ PRN (22:59)
[2020-06-20] MEDS: ALBUTEROL HALF STRENGTH 1.25 MG/3 ML VIAL.NEB NEB SCH ×4 (01:30→20:18)
[2020-06-20] MEDS: IPRATROPIUM NEB FS 0.5 MG/2.5 ML AMPUL.NEB NEB SCH ×4 (01:30→20:18)
[2020-06-20] MEDS: oxyCODONE IR immediate release 5 MG PO PRN ×3 (03:26→21:10)
[2020-06-20] MEDS: methylPREDNISolone SOD SUCC 40 MG/ML VIAL IV SCH ×3 (05:23→21:10)
[2020-06-20] MEDS: BLOOD SUGAR DIAGNOSTIC 1 EACH STRIP IN SCH ×4 (06:33→21:40)
[2020-06-20] MEDS: INSULIN REGULAR, HUMAN 100 UNIT/ML 3 ML VIAL SQ PRN ×3 (06:33→16:48)
[2020-06-20] MEDS: ONDANSETRON HCL/PF 4 MG/2 ML VIAL IVP PRN (06:36)
[2020-06-20 06:42] LABS: BASOPHILS # (AUTO) 0.1 /CMM (0.0-0.2); BASOPHILS % (AUTO) 2.2 % (0.0-2.0); EOSINOPHILS % (AUTO) 0.2 % (0.0-6.0); HEMATOCRIT 38 % (33-45); HEMOGLOBIN 11.8 g/dL (11.5-14.8); LYMPHOCYTES # (AUTO) 0.4 /CMM (0.8-4.8); LYMPHOCYTES % (AUTO) 16.7 % (20.0-44.0); MEAN CORPUSCULAR HGB CONC 31 g/dl (31.0-36.0); MEAN CORPUSCULAR VOLUME 85 fL (82-100); MONOCYTES # (AUTO) 0.1 /CMM (0.1-1.30); MONOCYTES % (AUTO) 2.8 % (2.0-12.0); NEUTROPHILS # (AUTO) 1.9 /CMM (1.8-8.9); NEUTROPHILS % (AUTO) 78.1 % (43.0-81.0); PLATELET COUNT (AUTO) 68 /CMM (150-450); RED BLOOD CELL COUNT(AUTO) 4.42 MIL/uL (4.0-5.2); WHITE BLOOD COUNT (AUTO) 2.5 K/uL (4.3-11.0)
--- NOTE | 2020-06-20 07:00 | NUR ---
MS RN OPENING NOTES RECEIVED PT RESTING IN BED AT THIS TIME. AOX4.PATIENT ABLE TO MAKE NEEDS KNOWN. NO SOB NOTED, NO S/S OF ANY ACUTE DISTRESS NOTED. NO C/O PAIN AT THIS TIME. RESPIRATIONS ARE EVEN AND UNLABORED WITH EQUAL RISE AND FALL IN CHEST. GABRIEL MIDLINE, INTACT, PATENT AND FLUSHING WELL. SAFETY PRECAUTION IN PLACE AND MAINTAINED AT ALL TIMES. BED IN LOWEST LOCKED POSITION, HOB ELEVATED, SIDE RAILS UP X 2, CALL LIGHT WITHIN REACH. WILL CONTINUE TO MONITOR
[2020-06-20 07:17] LABS: ALBUMIN 2.6 g/dL (3.4-5.0); BILIRUBIN,TOTAL 0.4 mg/dL (0.2-1.0); CALCIUM, SERUM 8.7 mg/dL (8.5-10.1); CREATININE 1.1 mg/dL (0.6-1.3); MAGNESIUM 1.8 mg/dL (1.8-2.4); PHOSPHORUS 3.5 mg/dL (2.5-4.9); POTASSIUM 4.1 mmol/L (3.5-5.1); TOTAL PROTEIN, SERUM 6.4 g/dL (6.4-8.2)
--- NOTE | 2020-06-20 07:26 | NUR ---
MS RN CLOSING NOTES PATIENT SLEEPING, EASY TO AWAKEN. A/OX4. ON 2L NC; NO S/S OF ACUTE RESPIRATORY DISTRESS; BREATHING IS EVEN AND UNLABORED. NO C/O PAIN. MIDLINE PRESENT ON LEFT UPPER ARM MIDLINE, INTACT & PATENT, NS RUNNING TKO. CURRENTLY NPO; AWAITING CT PULMONARY ANGIOGRAM; CONSENT IN CHART. SAFETY MEASURES IN PLACE AND PATIENT'S NEEDS MET. BED LOCKED, HOB ELEVATED, SIDE RAILS X2, CALL LIGHT WITHIN REACH. ENDORSED TO DAY SHIFT RN PLAN OF CARE.
[2020-06-20] MEDS: PANTOPRAZOLE 40 MG TABLET.DR PO SCH (07:58)
[2020-06-20] MEDS: SUCRALFATE 1 G TABLET PO SCH ×4 (07:59→21:10)
[2020-06-20 08:00] VITALS: BP 116/48
[2020-06-20] MEDS: FLUTICASONE/VILANTEROL 1 EACH BLST.W.DEV IH SCH (08:40)
[2020-06-20] MEDS: SPIRONOLACTONE 25 MG TABLET PO SCH (08:41)
[2020-06-20] MEDS: CALCIUM CARBONATE 500 MG TAB.CHEW PO SCH (08:41)
[2020-06-20] MEDS: DOCUSATE SODIUM 100 MG CAPSULE PO SCH ×2 (08:41→16:32)
[2020-06-20] MEDS: FOLIC ACID 1 MG TABLET PO SCH (08:41)
[2020-06-20] MEDS: GABAPENTIN 300 MG CAPSULE PO SCH ×3 (08:41→16:32)
[2020-06-20] MEDS: CALCIUM CARBONATE (1250) 500 MG TABLET PO SCH (08:41)
[2020-06-20] MEDS: SERTRALINE HCL 50 MG TABLET PO SCH (08:42)
[2020-06-20] MEDS: NICOTINE PATCH (21MG) 21 MG PATCH.TD24 TD SCH (08:42)
[2020-06-20] MEDS: ASCORBIC ACID 500 MG TABLET PO SCH (08:42)
[2020-06-20] MEDS: BACLOFEN (10 MG) 10 MG TABLET PO SCH ×3 (08:42→16:33)
[2020-06-20] MEDS: Z GUARD REMEDY 2 OZ OINT TP SCH (08:44)
[2020-06-20] MEDS: CLOTRIMAZOLE 1% 15 GM TUBE TP SCH ×2 (08:44→16:38)
[2020-06-20] MEDS: PROPRANOLOL HCL 10 MG TABLET PO SCH ×2 (08:46→16:37)
[2020-06-20] MEDS: ANASTROZOLE 1 MG TABLET PO SCH (08:49)
[2020-06-20] MEDS: FLUTICASONE PROPIONATE 16 GM BOTTLE NS SCH (08:59)
[2020-06-20 09:41] LABS: LYMPHOCYTES % (MANUAL) 23 % (16-48); MONOCYTES % (MANUAL) 3 % (0-11.0); NEUTROPHILS % (MANUAL) 74 (42-76)
[2020-06-20] MEDS: ALPRAZOLAM 1 MG TABLET PO PRN (09:41)
--- NOTE | 2020-06-20 09:45 | NUR ---
PT C/O OF ANXIETY AT THIS TIME. VS WNL. PER PT REQUEST [id number] PO Q8HR PRN WAS ADMINISTERED PER ORDER. WILL CONTINUE TO MONITOR
[2020-06-20] MEDS: LIDOCAINE 5% (PATCH) 1 EA PATCH TP SCH (09:48)
[2020-06-20] MEDS ORDERED: CT SWABBABLE VALVE TRANS SET 1 EA INFUS.SET MC ONE (10:19)
[2020-06-20] MEDS ORDERED: IOHEXOL-350 100 ML VIAL IV ONE (10:19)
[2020-06-20] MEDS ORDERED: IV NS 0.9% 250 ML IV ONE (10:19)
--- NOTE | 2020-06-20 10:40 | NUR ---
PT TRANSPORTED FROM UNIT BY BED AT THIS TIME FOR CT PULMONARY ANGIOGRAM. WILL CONTINUE WITH PLAN OF CARE
[2020-06-20] MEDS: FUROSEMIDE 100 MG/10 ML VIAL IV SCH ×3 (10:58→17:55)
--- NOTE | 2020-06-20 11:13 | NUR ---
PT TRANSPORTED TO UNIT BY BED AT THIS TIME FROM CT PULMONARY ANGIOGRAM. WILL CONTINUE WITH PLAN OF CARE
--- NOTE | 2020-06-20 14:35 | NUR ---
PT C/O GENERALIZED PAIN OF 7/10 AT THIS TIME, VS WNL. PER PT REQUEST, OXYCODONE 5MG PO Q6HR PRN ADMINISTERED PER ORDER AT THIS TIME. WILL CONTINUE TO MONITOR
--- NOTE | 2020-06-20 15:00 | NUR ---
UNABLE TO REACH DR WILLEM PITTS ([phone]) TO OBTAIN PATHOLOGY AND MEDICAL RECORD. VIA TELEPHONE EXCHANGE. WILL CONTINUE TO F/U AND CONTINUE WITH PLAN OF CARE
[2020-06-20 16:00] VITALS: BP 93/51
[2020-06-20] MEDS: MONTELUKAST SODIUM (10MG) 10 MG TABLET PO SCH (17:55)
--- NOTE | 2020-06-20 18:58 | NUR ---
MS RN CLOSING NOTES PT AWAKE IN BED AT THIS. PT REMAINED STABLE THROUGHOUT SHIFT. PT KEPT CLEAN AND DRY. ALL CARE, NEEDS, MEDICATIONS AND TREATMENT ADMINISTERED ANTICIPATED PER PROTOCOL. PAIN MANAGEMENT ADMINISTERED PER ORDER. SAFETY PRECAUTION IN PLACE AND MAINTAINED AT ALL TIMES. BED IN LOWEST LOCKED POSITION, HOB ELEVATED, SIDE RAILS UP X 2, CALL LIGHT WITHIN REACH. WILL ENDORSE TO HERB DIGGER NURSE FOR DEVANTE
--- NOTE | 2020-06-20 19:30 | NUR ---
ms rn opeing note received patient in bed. a/ox4. tolerating room air. respirations are even and unlabored. no s/s sob noted. c/o pain at this time, informed patient will need pumper gager apprentice to obtain vitals and check when medication is available. in no apparent distress. iv access in izabella midline patent and saline locked. bed is low and locked,hob elevated in semi perez,s side rials up x2, call light within reach. will continue to monitor.
[2020-06-20 20:00] VITALS: BP 122/65
[2020-06-20] MEDS: *INSULIN REGULAR(HUMULIN R)HUM 100 UNIT/ML VIAL SQ PRN (21:46)
[2020-06-20] MEDS: TRAZODONE 50 MG TABLET PO SCH (22:18)
[2020-06-20] MEDS: LEVOFLOXACIN 500 MG /D5W 100ML 500 MG in PREMIX 1 EA IV SCH (22:24)
[2020-06-20] MEDS: ZOLPIDEM TARTRATE 10 MG TABLET PO PRN (23:15)
--- NOTE | 2020-06-20 23:15 | NUR ---
MS RN NOTE ADMINISTERED PRN AMBIEN 10MG PER PATIENT REQUEST. WILL CONTINUE TO MONITOR.
[2020-06-21] MEDS: ALPRAZOLAM 1 MG TABLET PO PRN (01:15)
[2020-06-21] MEDS: IPRATROPIUM NEB FS 0.5 MG/2.5 ML AMPUL.NEB NEB SCH ×3 (01:30→13:30)
[2020-06-21] MEDS: ALBUTEROL HALF STRENGTH 1.25 MG/3 ML VIAL.NEB NEB SCH ×3 (01:30→13:30)
[2020-06-21] MEDS: methylPREDNISolone SOD SUCC 40 MG/ML VIAL IV SCH ×2 (05:30→12:32)
[2020-06-21] MEDS: oxyCODONE IR immediate release 5 MG PO PRN (05:47)
--- NOTE | 2020-06-21 05:57 | NUR ---
ms rn note administered prn oxy ir for pain 04/05 generalized. will continue to monitor
--- NOTE | 2020-06-21 05:58 | NUR ---
ms rn note patient refused photos to be taken per protocol qsunday. informed her of benefits, continues to refuse. will continue to monitor.
--- NOTE | 2020-06-21 05:59 | NUR ---
ms rn note patient refused to be turned multiple times throughout shift. despite education of risk and benefits continued to refuse.
[2020-06-21] MEDS: BLOOD SUGAR DIAGNOSTIC 1 EACH STRIP IN SCH ×2 (06:33→12:18)
[2020-06-21] MEDS: PANTOPRAZOLE 40 MG TABLET.DR PO SCH (06:33)
[2020-06-21] MEDS: SUCRALFATE 1 G TABLET PO SCH ×2 (06:33→11:09)
[2020-06-21] MEDS: INSULIN REGULAR, HUMAN 100 UNIT/ML 3 ML VIAL SQ PRN ×2 (06:42→12:36)
--- NOTE | 2020-06-21 06:56 | NUR ---
ms rn closing note patient is resting in bed. a/ox4. n 4l/,in via nasal cannula.no resp distress noted. oxy ir given for pain. no distress. iv access maintained in izabella midline patent and saline locked. bed remains low and locked,hob elevated in semi perez,s side rials up x2, call light within reach. will endorse to next shift
--- NOTE | 2020-06-21 07:20 | NUR ---
MS RN OPENING NOTES RECEIVED PT RESTING IN BED. AOX4. ON 4L O2 VIA NC, SATURATING @ 93%. NO SOB NOTED OR ANY ACUTE RESPIRATORY DISTRESS NOTED. NO PAIN REPORTED AT THIS TIME. GABRIEL MIDLINE, INTACT, PATENT AND FLUSHED. SAFETY MEASURES OBSERVED. CALL LIGHT WITHIN REACH. BED LOCKED AND AT LOWEST POSITION WITH SIDE RAILS UP X 2. HOB ELEVATED. WILL CONTINUE TO MONITOR
[2020-06-21 07:50] LABS: BASOPHILS # (AUTO) 0.1 /CMM (0.0-0.2); EOSINOPHILS % (AUTO) 0.4 % (0.0-6.0); HEMATOCRIT 39 % (33-45); HEMOGLOBIN 12.2 g/dL (11.5-14.8); LYMPHOCYTES # (AUTO) 0.3 /CMM (0.8-4.8); MEAN CORPUSCULAR HGB CONC 32 g/dl (31.0-36.0); MEAN CORPUSCULAR VOLUME 84 fL (82-100); MONOCYTES # (AUTO) 0.2 /CMM (0.1-1.30); MONOCYTES % (AUTO) 15.1 % (2.0-12.0); NEUTROPHILS # (AUTO) 0.5 /CMM (1.8-8.9); PLATELET COUNT (AUTO) 75 /CMM (150-450); RED BLOOD CELL COUNT(AUTO) 4.61 MIL/uL (4.0-5.2)
[2020-06-21 07:55] LABS: ALBUMIN 2.8 g/dL (3.4-5.0); BILIRUBIN,TOTAL 0.7 mg/dL (0.2-1.0); CREATININE 1.1 mg/dL (0.6-1.3); MAGNESIUM 1.9 mg/dL (1.8-2.4); POTASSIUM 3.6 mmol/L (3.5-5.1); TOTAL PROTEIN, SERUM 6.7 g/dL (6.4-8.2)
[2020-06-21 07:58] LABS: BASOPHILS % (AUTO) 6.5 % (0.0-2.0)
[2020-06-21 08:44] VITALS: BP 103/54
[2020-06-21] MEDS: ANASTROZOLE 1 MG TABLET PO SCH (09:09)
[2020-06-21] MEDS: SERTRALINE HCL 50 MG TABLET PO SCH (09:09)
[2020-06-21] MEDS: ASCORBIC ACID 500 MG TABLET PO SCH (09:09)
[2020-06-21] MEDS: DOCUSATE SODIUM 100 MG CAPSULE PO SCH (09:09)
[2020-06-21] MEDS: SPIRONOLACTONE 25 MG TABLET PO SCH (09:09)
[2020-06-21] MEDS: FOLIC ACID 1 MG TABLET PO SCH (09:09)
[2020-06-21] MEDS: GABAPENTIN 300 MG CAPSULE PO SCH ×2 (09:09→12:32)
[2020-06-21] MEDS: NICOTINE PATCH (21MG) 21 MG PATCH.TD24 TD SCH (09:09)
[2020-06-21] MEDS: CALCIUM CARBONATE (1250) 500 MG TABLET PO SCH (09:09)
[2020-06-21] MEDS: CALCIUM CARBONATE 500 MG TAB.CHEW PO SCH (09:09)
[2020-06-21] MEDS: BACLOFEN (10 MG) 10 MG TABLET PO SCH ×2 (09:09→12:32)
[2020-06-21] MEDS: PROPRANOLOL HCL 10 MG TABLET PO SCH (09:10)
[2020-06-21] MEDS: Z GUARD REMEDY 2 OZ OINT TP SCH (09:11)
[2020-06-21] MEDS: CLOTRIMAZOLE 1% 15 GM TUBE TP SCH (09:12)
[2020-06-21] MEDS: FLUTICASONE PROPIONATE 16 GM BOTTLE NS SCH (09:27)
[2020-06-21] MEDS: FLUTICASONE/VILANTEROL 1 EACH BLST.W.DEV IH SCH (09:27)
[2020-06-21] MEDS ORDERED: ENOXAPARIN SODIUM 100 MG/ML DISP.SYRIN SQ SCH (09:51)
[2020-06-21] MEDS: LIDOCAINE 5% (PATCH) 1 EA PATCH TP SCH (11:07)
[2020-06-21] MEDS ORDERED: RIVA10TA PO ×2 (11:26)
[2020-06-21 11:34] LABS: LYMPHOCYTES % (MANUAL) 28 % (16-48); MONOCYTES % (MANUAL) 13 % (0-11.0); MYELOCYTES % 3 % (0-0); NEUTROPHILS % (MANUAL) 53 (42-76); REACTIVE LYMPHOCYTES 3 % (0-0)
--- NOTE | 2020-06-21 13:32 | NUR ---
Referrals and resources: SW followed up and checked-in on patient as she will be discharged today. Patient reports bereavement and symptoms of depression. ANCA provided patient with the following bereavement/ Grief Support Groups: [facility] [[address], [address] [place] [address] ]; [facility] [place] [[phone] [place] [address] ] and Outpatient Counseling Services: [facility] [[address], [address] [place], [place] [address] ] (Provide in-home mental services to people who are incapable of leaving their homes); [facility] [[address] [place] [address] (Deal with loss & grief, anxiety). Patient also has Hx. of ETOH abuse and Cirrhosis and SW provided the following resources: Alcoholics Anonymous [[address], [place] [address] [phone] (Hotline) Per patient, she has Stage 3 left Breast Cancer will be receiving chemotherapy in the future. ANCA provided the following resources: [employer] http://www.cancer.org [place] [address] [place] [address] (800) acs-2345; [facility] [[address] [place] [address] www.[email or web address].org]. The pt. expressed understanding and expressed appreciation for the resources. Per patient her Sister, Barb is here visiting her from [place] and will be staying with her for sometime. Per pt., her sister will help her call the resources she feels are necessary.
[2020-06-21] MEDS ORDERED: TBO-FILGRASTIM 480 MCG/0.8 ML ML SQ SCH (15:00)
[2020-06-21 16:24] VITALS: BP 117/56
--- NOTE | 2020-06-21 17:45 | NUR ---
RN CLOSING NOTES DISCHARGED PT TO HOME ACCOMPANIED BY AMBULANCE CREW. ALL VS ARE WNL. PT IN STABLE CONDITION. DISCHARGE INSTRUCTIONS WERE GIVEN, VERBALIZES UNDERSTANDING. FLU SHOT NOT ADMINISTERED. WBC IS LOW, 1.1.
== END 2020-06-21 18:20 | disposition home health service (06) | DRG 189 ==
LOC: ER 17:56 → TELE1 21:00 → TELE 06-18 19:05 → MED 06-19 09:02
PROVIDERS: ADMIT Internal Medicine; ATTEND Nurse Practitioner Acute Care
PROC: 05HF33Z Insertion of Infusion Device into Left Cephalic Vein, Percutaneous Approach (ICD-10-PCS; principal; 2020-06-20)
PROC: 05HF33Z Insertion of Infusion Device into Left Cephalic Vein, Percutaneous Approach (ICD-10-PCS; 2020-06-20)
DX: J96.21 Acute and chronic respiratory failure with hypoxia (principal); E43 Unspecified severe protein-calorie malnutrition; J44.1 Chronic obstructive pulmonary disease with (acute) exacerbation; Z68.41 Body mass index [BMI] 40.0-44.9, adult; D68.59 Other primary thrombophilia; D61.818 Other pancytopenia; J98.11 Atelectasis; I85.10 Secondary esophageal varices without bleeding; K76.6 Portal hypertension; I82.411 Acute embolism and thrombosis of right femoral vein; I82.431 Acute embolism and thrombosis of right popliteal vein; Y90.0 Blood alcohol level of less than 20 mg/100 ml; E78.5 Hyperlipidemia, unspecified; C50.912 Malignant neoplasm of unspecified site of left female breast; I50.9 Heart failure, unspecified; I11.0 Hypertensive heart disease with heart failure; F10.229 Alcohol dependence with intoxication, unspecified; E66.01 Morbid (severe) obesity due to excess calories; F17.200 Nicotine dependence, unspecified, uncomplicated; M19.90 Unspecified osteoarthritis, unspecified site; Z85.3 Personal history of malignant neoplasm of breast; Z91.14 Patient's other noncompliance with medication regimen; Z79.01 Long term (current) use of anticoagulants; Z79.811 Long term (current) use of aromatase inhibitors; Z86.718 Personal history of other venous thrombosis and embolism; Z79.899 Other long term (current) drug therapy; Z99.81 Dependence on supplemental oxygen; J40 Bronchitis, not specified as acute or chronic; K74.60 Unspecified cirrhosis of liver; G47.33 Obstructive sleep apnea (adult) (pediatric); F32.9 Major depressive disorder, single episode, unspecified; F41.9 Anxiety disorder, unspecified; G47.00 Insomnia, unspecified; G62.9 Polyneuropathy, unspecified; R73.9 Hyperglycemia, unspecified; I27.20 Pulmonary hypertension, unspecified; I70.0 Atherosclerosis of aorta; G89.4 Chronic pain syndrome; K21.9 Gastro-esophageal reflux disease without esophagitis; I86.4 Gastric varices; K80.20 Calculus of gallbladder without cholecystitis without obstruction; K59.00 Constipation, unspecified; R21 Rash and other nonspecific skin eruption; M85.80 Other specified disorders of bone density and structure, unspecified site; D69.6 Thrombocytopenia, unspecified; D72.819 Decreased white blood cell count, unspecified
CPT/HCPCS: 36415; 71045-TC; 80048-TC; 80053-TC; 80061-TC; 80076-TC; 82728-TC; 82962-TC; 83540-TC; 83605-TC; 83735-TC; 83880; 84100-TC; 84439-TC; 84443-TC; 84484-TC; 85025-TC; 85385-TC; 85610-TC; 85730-TC; 86300; 87040-TC; 87081-TC; 93307-TC; 93970-TC; 94799-TC; A4216; A6253; C9803; G0378; G0480; J1442; J1447; J1650; J1815; J1940; J1956; J2405; J2920; J2930; J3475; J7040; J7050; Q9967

== ENCOUNTER 2020-08-13 19:39 | Inpatient (IN) | payer MEDICARE, OTHER ==
[~2020-08-13] VITALS: Ht 162.6 cm; Wt 108.0 kg
[~2020-08-13 19:39] MED LIST changes: +ALEN70TA69 PO; +ALPR2TAB7 PO; +BACL10TA PO; +ERGO500014 PO; +INSU100I14 SQ; +OMEP40CA13 PO; +OXYC5TAB3 PO; +POTA8TAB3 PO; +PROP10TA68 PO; -RISE35TA PO; +RIVA10TA PO; +SPIR25TA6 PO; +SUCR1TAB PO; +SULI200T4 PO; +TRAZ-257 PO; -WARF5TAB PO
--- NOTE | 2020-08-13 19:55 | NUR ---
MATIAS FROM HOME C/O WEAKNESS X1 DAY, PT AAOX4, -SOB, GOWNED, PLACED ON MONITOR, PENDING ER PROVIDER PARAS
[2020-08-13] MEDS ORDERED: IV NS 0.9% 1,000 ML BAG IV ONE (20:00)
--- NOTE | 2020-08-13 20:00 | NUR ---
PIV STARTED, BLOOD DRAWN, SENT TO LAB
[2020-08-13 20:41] LABS: CALCIUM, SERUM 8.9 mg/dL (8.5-10.1); CREATININE 0.7 mg/dL (0.6-1.3); POTASSIUM 4.9 mmol/L (3.5-5.1)
[2020-08-13 21:13] LABS: HEMATOCRIT 34 % (33-45); HEMOGLOBIN 10.9 g/dL (11.5-14.8); MEAN CORPUSCULAR HGB CONC 32 g/dl (31.0-36.0); MEAN CORPUSCULAR VOLUME 86 fL (82-100); PLATELET COUNT (AUTO) 134 /CMM (150-450)
[2020-08-13 21:20] LABS: WHITE BLOOD COUNT (AUTO) 1.5 K/uL (4.3-11.0)
[2020-08-13] MEDS ORDERED: VANCOMYCIN 1 GM in IV D5W 250 ML IV ONE (21:30)
[2020-08-13] MEDS ORDERED: CEFEPIME 1 GM in IV D5W 50 ML IV ONE (21:30)
--- NOTE | 2020-08-13 22:05 | NUR ---
ER TALKING TO DR. BRIAN REGARDING PT ADMISSION
[2020-08-13] MEDS ORDERED: CEFEPIME 1 GM VIAL ONE (23:12)
[2020-08-13 23:50] LABS: EOSINOPHILS % (MANUAL) 1 % (0-4); LYMPHOCYTES % (MANUAL) 68 % (16-48); MONOCYTES % (MANUAL) 24 % (0-11.0); NEUTROPHILS % (MANUAL) 7 (42-76)
[2020-08-14] MEDS ORDERED: ONDANSETRON HCL/PF 4 MG/2 ML VIAL IVP PRN (00:30)
[2020-08-14] MEDS ORDERED: ZOLPIDEM TARTRATE 5 MG TABLET PO PRN (00:30)
[2020-08-14] MEDS ORDERED: HYDROCODONE/APAP 5/325MG TABLET PO PRN (00:30)
[2020-08-14] MEDS ORDERED: MAGNESIUM HYDROXIDE 30 ML UDC PO PRN (00:30)
[2020-08-14] MEDS ORDERED: Z GUARD REMEDY 2 OZ OINT TP PRN (00:30)
[2020-08-14] MEDS ORDERED: MAG HYDROX/AL HYDROX/SIMETH 30 ML UDC PO PRN (00:30)
[2020-08-14] MEDS ORDERED: VANCOMYCIN 1 GM VIAL ONE (01:29)
--- NOTE | 2020-08-14 05:23 | NUR ---
inpatient orders verified by oncall pharmacist. orders carried out
[2020-08-14] MEDS: PANTOPRAZOLE 40 MG TABLET.DR PO SCH (08:30)
[2020-08-14] MEDS: GABAPENTIN 300 MG CAPSULE PO SCH ×3 (08:35→17:58)
[2020-08-14] MEDS: BACLOFEN (10 MG) 10 MG TABLET PO SCH ×3 (08:35→17:58)
[2020-08-14] MEDS: SPIRONOLACTONE 25 MG TABLET PO SCH (08:36)
[2020-08-14] MEDS: SERTRALINE HCL 50 MG TABLET PO SCH (08:36)
[2020-08-14] MEDS: MONTELUKAST SODIUM (10MG) 10 MG TABLET PO SCH (08:36)
[2020-08-14] MEDS: ANASTROZOLE 1 MG TABLET PO SCH (08:36)
[2020-08-14] MEDS: CALCIUM CARBONATE (1250) 500 MG TABLET PO SCH (08:37)
[2020-08-14] MEDS: SUCRALFATE 1 G TABLET PO SCH ×4 (08:37→21:15)
[2020-08-14] MEDS: FOLIC ACID 1 MG TABLET PO SCH (08:37)
[2020-08-14] MEDS ORDERED: HYDROCODONE/APAP 10/325MG TABLET ONE ×2 (08:41→17:50)
[2020-08-14] MEDS: ALPRAZOLAM 0.5 MG TABLET PO SCH ×2 (08:41→17:58)
[2020-08-14] MEDS ORDERED: ALPRAZOLAM 0.5 MG TABLET ONE ×2 (08:41→17:50)
[2020-08-14] MEDS: HYDROCODONE/APAP 10/325MG TABLET PO PRN ×2 (08:42→17:58)
[2020-08-14] MEDS ORDERED: RIVAROXABAN 10 MG TABLET PO SCH (09:00)
[2020-08-14] MEDS ORDERED: SULINDAC 200 MG TABLET PO SCH ×2 (09:00)
--- NOTE | 2020-08-14 09:30 | NUR ---
PATIENT A/OX4, BREATHING EVEN AND UNLABORED, NO SOB NOTED, NEEDS ATTENDED. BREAKFAST PROVIDED.
[2020-08-14] MEDS: CEFEPIME 2 GM in IV D5W 100 ML IV SCH ×2 (09:37→21:15)
[2020-08-14] MEDS: FLUTICASONE PROPIONATE 16 GM BOTTLE NS SCH (09:49)
[2020-08-14] MEDS: RIVAROXABAN 15 MG TABLET PO SCH ×2 (09:49→17:58)
--- NOTE | 2020-08-14 11:42 | NUR ---
PT ON O2 VIA NC @ 3LPM.
--- NOTE | 2020-08-14 11:42 | NUR ---
PT IN BED SLEEPING. NAD NOTED, BREATHING EVEN AND UNLABORED. VSS
--- NOTE | 2020-08-14 12:09 | NUR ---
PT PROVIDED WITH MEAL
--- NOTE | 2020-08-14 13:30 | NUR ---
PT CARE PROVIDED AND REPOSITIONED. GOOD MADIHA CARE PROVIDED WELL NEEDS ATTENDED.
--- NOTE | 2020-08-14 13:39 | NUR ---
pharmacy called for medication
[2020-08-14] MEDS ORDERED: FUROSEMIDE 40 MG/4 ML VIAL IV ONE (14:00)
[2020-08-14] MEDS: VANCOMYCIN 1.25 GM in IV D5W 250 ML IV SCH (14:00)
--- NOTE | 2020-08-14 15:11 | NUR ---
lasix 40mg ivp held d/t bp is 97/43
--- NOTE | 2020-08-14 15:54 | NUR ---
ANNALISE ROSENORBERTO SISTER [phone]
--- NOTE | 2020-08-14 17:30 | NUR ---
pt is provided with food and eating at this time
--- NOTE | 2020-08-14 23:39 | NUR ---
COVID SWAB DONE AND SENT TO LAB
--- NOTE | 2020-08-15 01:30 | NUR ---
pt remains in bed, sleeping easily aroused to name call, to signs of discomfort or distress, vss will continue to monitor
[2020-08-15 06:37] LABS: ALBUMIN 1.7 g/dL (3.4-5.0); BILIRUBIN,DIRECT 0.5 mg/dL (0.0-0.2); BILIRUBIN,TOTAL 0.7 mg/dL (0.2-1.0); CALCIUM, SERUM 8.1 mg/dL (8.5-10.1); CREATININE 0.6 mg/dL (0.6-1.3); MAGNESIUM 1.6 mg/dL (1.8-2.4); PHOSPHORUS 3.8 mg/dL (2.5-4.9); POTASSIUM 4.3 mmol/L (3.5-5.1); TOTAL PROTEIN, SERUM 5.9 g/dL (6.4-8.2)
[2020-08-15 06:44] LABS: HEMATOCRIT 35 % (33-45); LYMPHOCYTES # (AUTO) 0.6 /CMM (0.8-4.8); MEAN CORPUSCULAR HGB CONC 31 g/dl (31.0-36.0); MEAN CORPUSCULAR VOLUME 85 fL (82-100); MONOCYTES # (AUTO) 0.4 /CMM (0.1-1.30); MONOCYTES % (AUTO) 35.1 % (2.0-12.0); NEUTROPHILS # (AUTO) 0.2 /CMM (1.8-8.9); NEUTROPHILS % (AUTO) 13.9 % (43.0-81.0); PLATELET COUNT (AUTO) 130 /CMM (150-450); RED BLOOD CELL COUNT(AUTO) 4.14 MIL/uL (4.0-5.2)
[2020-08-15 06:47] LABS: THYROID STIMULATING HORMONE 0.385 uIU/mL (0.358-3.74)
--- NOTE | 2020-08-15 06:59 | NUR ---
WBC 1.1 PER LAB
[2020-08-15 07:00] LABS: WHITE BLOOD COUNT (AUTO) 1.1 K/uL (4.3-11.0)
[2020-08-15] MEDS: PANTOPRAZOLE 40 MG TABLET.DR PO SCH (07:50)
[2020-08-15] MEDS: VANCOMYCIN 1.25 GM in IV D5W 250 ML IV SCH (07:50)
--- NOTE | 2020-08-15 07:50 | NUR ---
PT RECEIVED ON BED SLEEPING. EASILY ARROUSABLE. NOT IN RESOP DISTRESS.
[2020-08-15] MEDS ORDERED: ALPRAZOLAM 0.5 MG TABLET ONE ×2 (08:50→17:44)
[2020-08-15 09:08] LABS: LYMPHOCYTES % (MANUAL) 50 % (16-48); MONOCYTES % (MANUAL) 33 % (0-11.0); MYELOCYTES % 5 % (0-0); NEUTROPHILS % (MANUAL) 12 (42-76)
[2020-08-15] MEDS: SPIRONOLACTONE 25 MG TABLET PO SCH (09:38)
[2020-08-15] MEDS: FOLIC ACID 1 MG TABLET PO SCH (09:38)
[2020-08-15] MEDS: MONTELUKAST SODIUM (10MG) 10 MG TABLET PO SCH (09:38)
[2020-08-15] MEDS: CALCIUM CARBONATE (1250) 500 MG TABLET PO SCH (09:38)
[2020-08-15] MEDS: ALPRAZOLAM 0.5 MG TABLET PO SCH ×2 (09:38→17:52)
[2020-08-15] MEDS: BACLOFEN (10 MG) 10 MG TABLET PO SCH ×3 (09:38→17:52)
[2020-08-15] MEDS: FLUTICASONE PROPIONATE 16 GM BOTTLE NS SCH (09:38)
[2020-08-15] MEDS: RIVAROXABAN 15 MG TABLET PO SCH ×2 (09:38→17:52)
[2020-08-15] MEDS: ANASTROZOLE 1 MG TABLET PO SCH (09:38)
[2020-08-15] MEDS: GABAPENTIN 300 MG CAPSULE PO SCH ×3 (09:38→17:52)
[2020-08-15] MEDS: SUCRALFATE 1 G TABLET PO SCH ×4 (09:38→21:00)
[2020-08-15] MEDS: CEFEPIME 2 GM in IV D5W 100 ML IV SCH ×2 (09:39→22:00)
[2020-08-15] MEDS: SERTRALINE HCL 50 MG TABLET PO SCH (09:39)
[2020-08-15] MEDS ORDERED: FUROSEMIDE 20 MG/2 ML VIAL IV ONE (10:30)
[2020-08-15] MEDS: Magnesium 1GM/D5W 100ML PREMIX 100 ML IV SCH ×2 (11:15→12:20)
--- NOTE | 2020-08-15 12:00 | NUR ---
pt care rendered, changed to new gown, pericare provided. beddings changed as well. meal provided
--- NOTE | 2020-08-15 17:30 | NUR ---
PT CLEANED, GOOD DPERI CARE GIVEN AND LINEN CHANGED. PT WAS PROVIDED A MEAL AFTERWARDS
--- NOTE | 2020-08-15 18:34 | NUR ---
RECEIVED A CALL FROM HITESH AT [facility] THAT PT IS MRSA POSITIVE
--- NOTE | 2020-08-15 19:39 | NUR ---
PT ENDORSED TO HALE[facility] DORSEY
[2020-08-15] MEDS: TBO-FILGRASTIM 480 MCG/0.8 ML ML SQ SCH (20:30)
--- NOTE | 2020-08-15 23:06 | NUR ---
TOOK OVER PT CARE. PT REMAINS ASLEEP, REPOSITIONED TO THE LEFT. PROVIDED WITH WARM BLANEKTS AND PILLOW. REMAINS ON 4L NC, SAT 95%.
--- NOTE | 2020-08-16 00:40 | NUR ---
PT WAS CLEANED AND DRIED. REPOSITIONED . NO C/O PAIN OR DISCOMFORT. WILL CONT TO MONITOR ,
[2020-08-16] MEDS: VANCOMYCIN 1.25 GM in IV D5W 250 ML IV SCH ×2 (01:38→20:23)
--- NOTE | 2020-08-16 02:05 | NUR ---
Patient is resting comfortably in bed with eyes closed. Easily aroused. VSS
[2020-08-16 05:42] LABS: EOSINOPHILS % (AUTO) 0.9 % (0.0-6.0); HEMATOCRIT 35 % (33-45); LYMPHOCYTES # (AUTO) 0.8 /CMM (0.8-4.8); LYMPHOCYTES % (AUTO) 44.2 % (20.0-44.0); MEAN CORPUSCULAR HGB CONC 32 g/dl (31.0-36.0); MEAN CORPUSCULAR VOLUME 84 fL (82-100); MONOCYTES # (AUTO) 0.7 /CMM (0.1-1.30); MONOCYTES % (AUTO) 39.1 % (2.0-12.0); NEUTROPHILS # (AUTO) 0.3 /CMM (1.8-8.9); NEUTROPHILS % (AUTO) 15.8 % (43.0-81.0); PLATELET COUNT (AUTO) 128 /CMM (150-450); RED BLOOD CELL COUNT(AUTO) 4.16 MIL/uL (4.0-5.2)
[2020-08-16 05:43] LABS: WHITE BLOOD COUNT (AUTO) 1.8 K/uL (4.3-11.0)
[2020-08-16 05:57] LABS: CALCIUM, SERUM 8.4 mg/dL (8.5-10.1); CREATININE 0.7 mg/dL (0.6-1.3); MAGNESIUM 1.7 mg/dL (1.8-2.4); POTASSIUM 3.9 mmol/L (3.5-5.1)
[2020-08-16 06:05] LABS: BAND % (MANUAL) 2 % (0.0-5.0); LYMPHOCYTES % (MANUAL) 43 % (16-48); NEUTROPHILS % (MANUAL) 22 (42-76)
[2020-08-16 06:06] LABS: MONOCYTES % (MANUAL) 33 % (0-11.0)
[2020-08-16 06:16] LABS: D-DIMER 8.56 mg/L(FEU (0.17-0.50)
[2020-08-16] MEDS: PANTOPRAZOLE 40 MG TABLET.DR PO SCH (07:00)
--- NOTE | 2020-08-16 07:02 | NUR ---
PT WAS CLEANED AND DRIED. REPOSITIONED . REMAINED COMFORTABLE,. ON ONGOING O2 AT 4LPM VIA NC . CARISSA WELL. NO SOB. PT WAS FED W/ SOME SNACKS. ATTEMPTED TP START A NEW PIV LINE. BUT PT REFUSED AND REPORTED SHE HAS A PORT A CATH ON RCW WHICH CAN BE USED AND IT'S BEEN ALREADY USED FOR CHEMO. SR UP AND BED IN LOW LOCKED POSITION. WILL CONT TO MONITOR AND WILL ENDORSE TO AM SHIFT FOR DEVANTE.
--- NOTE | 2020-08-16 07:13 | NUR ---
BED ASSIGNMENT 322-1
[2020-08-16] MEDS ORDERED: Magnesium 1GM/D5W 100ML PREMIX 100 ML IV SCH (08:00)
[2020-08-16] MEDS: SERTRALINE HCL 50 MG TABLET PO SCH (09:00)
[2020-08-16] MEDS: RIVAROXABAN 15 MG TABLET PO SCH ×2 (09:00→16:12)
[2020-08-16] MEDS: GABAPENTIN 300 MG CAPSULE PO SCH ×3 (09:00→16:11)
[2020-08-16] MEDS: BACLOFEN (10 MG) 10 MG TABLET PO SCH ×3 (09:00→16:12)
[2020-08-16] MEDS: ALPRAZOLAM 0.5 MG TABLET PO SCH ×2 (09:00→16:12)
[2020-08-16] MEDS: MONTELUKAST SODIUM (10MG) 10 MG TABLET PO SCH (09:00)
[2020-08-16] MEDS: FOLIC ACID 1 MG TABLET PO SCH (09:00)
[2020-08-16] MEDS: SUCRALFATE 1 G TABLET PO SCH ×4 (09:00→20:40)
[2020-08-16] MEDS: ANASTROZOLE 1 MG TABLET PO SCH (09:00)
[2020-08-16] MEDS: SPIRONOLACTONE 25 MG TABLET PO SCH (09:00)
[2020-08-16] MEDS: CALCIUM CARBONATE (1250) 500 MG TABLET PO SCH (09:00)
--- NOTE | 2020-08-16 09:04 | NUR ---
pt in bed sleeping. easily arrousable. nad noted.
--- NOTE | 2020-08-16 09:18 | NUR ---
PT TRANSPORTED TO UNIT ON RGAZELLE WITH EMT AND RN AT BEDSIDE.
--- NOTE | 2020-08-16 09:20 | NUR ---
RN OPENING NOTE RECEIVED THE PATIENT ON A GURNEY FROM ER. TRANSFERRED THE PATIENT TO BED. THE PATIENT IS ALERT AND ORIENTED X3. ABLE TO MAKE NEEDS KNOWN VERBALLY. DENIES PAIN. OXYGEN SATURATION IS ROOM AIR IS AT 76 %, PLACED THE PATIENT ON OXYGEN AT 2L/MIN VIA NASAL CANNULA AND SATURATION IMPROVED TO 91%. THE PATIENT IS IN NO APPARENT DISTRESS. LEFT HAND G 22 PATENT AND SALINE LOCKED. PATIENT HAS HX OF LEFT BREAST CANCER, SO STAFF INFORMED NOT TO TAKE BP ON THE LEFT ARM. BED LOW AND LOCKED. SIDE RAILS UP X3. CALL LIGHT WITHIN REACH. WILL CONTINUE TO MONITOR.
[2020-08-16] MEDS: CEFEPIME 2 GM in IV D5W 100 ML IV SCH ×2 (11:14→23:14)
--- NOTE | 2020-08-16 11:36 | NUR ---
RN DIET ORDER CARDIAC FINE CHOPPED DIET ORDER RECEIVED FROM JULIEN HESS. THE ORDER IS READ BACK, VERIFIED. NOTED AND CARRIED OUT.
[2020-08-16 12:00] VITALS: BP 117/71
--- NOTE | 2020-08-16 12:01 | NUR ---
RN NOTE STILL WAITING FOR THE PHARMACY TO DELIVER FLONASE THAT WAS DUE AT 0900. FOLLOW UP CALLS ARE MADE. WILL CONTINUE TO FOLLOW UP UNTIL THE MEDICATION IS DELIVERED.
--- NOTE | 2020-08-16 12:21 | NUR ---
RN NOTE ORDER OF BACTROBAN TO BE APPLIED ON NOSTRILS IS RECEIVED FROM JULIEN HESS DUE TO PATIENT HAS MRSA OF NARES. THE ORDER IS READ BACK, VERIFIED. NOTED AND CARRIED OUT.
[2020-08-16] MEDS: FLUTICASONE PROPIONATE 16 GM BOTTLE NS SCH (14:35)
[2020-08-16 16:00] VITALS: BP 117/62
[2020-08-16 17:09] LABS: BILIRUBIN,URINE NEGATIVE (NEGATIVE); BLOOD, URINE LARGE Ery/uL (NEGATIVE); COLOR,URINE YELLOW (YELLOW); LEUKOCYTE ESTERASE ,URINE NEGATIVE (NEGATIVE); NITRITE, URINE NEGATIVE (NEGATIVE); PROTEIN,URINE NEGATIVE (NEGATIVE); UGLUCOSE NEGATIVE (NEGATIVE); UROBILINOGEN,URINE 0.2 EU/dL (0.2)
[2020-08-16 18:54] LABS: BACTERIA,URINE 1+ /HPF (None Seen); MUCUS,URINE Few /LPF (None Seen)
--- NOTE | 2020-08-16 19:15 | NUR ---
HAND TURNER CLOSING NOTES PATIENT IS IN BED RESTING COMFORTABLY. PATIENT IS IN NO ACUTE DISTRESS. NO SOB NOTED. PATIENT IS ON OXYGEN NC ON 2L. PATIENT IS ON KEYLINER READING SR 87. PATIENT KEPT CLEAN DRY, AND COMFORTABLE THROUGHOUT THE SHIFT. NO FACIAL GRIMACING OR SIGNS OF PAIN PRESENT. BED ALARM IS ON. CALL LIGHT WITHIN REACH. BED IS IN THE LOWEST POSITION WITH SIDES RAILS UP. ENDORSE TO MARINE SPECIALIST NURSE FOR DEVANTE.
--- NOTE | 2020-08-16 19:30 | NUR ---
TELERN AWAKE, SOB ON MIN EXERTION. VANCO TO START . SPOKE TO PHARMACY REGARDING GRANIX, SQ. PER PHARMACY PATIENT NEEDED THE DOSE. TO ADMINISTER TONIGHT. KEPT COMFORTABLE TO CONTINUE.
[2020-08-16 20:10] VITALS: BP 98/51
[2020-08-16] MEDS: TBO-FILGRASTIM 480 MCG/0.8 ML ML SQ SCH (20:38)
[2020-08-16] MEDS: MUPIROCIN OINT 2% 22 GM TUBE NS SCH (20:40)
--- NOTE | 2020-08-16 21:00 | NUR ---
TELERN DUE MEDS ADMINISTERED. ON MRSA ISOLATION PRECAUTIONARY MEASURES OBSERVED.
[2020-08-17 00:15] VITALS: BP 100/55
[2020-08-17 04:25] VITALS: BP 94/48
--- NOTE | 2020-08-17 04:31 | NUR ---
TELERN SLEPT FAIRLY. KEPT DRY CLAN AND COMFORTABLE. CONTIUED MONITORING
--- NOTE | 2020-08-17 06:18 | NUR ---
TELERN COMPLETELY BATHED, KEPT DRY CLEAN AND COMFORTABLE. REPOSITIONED. VERY PLEASANT LADY. ABDOMINAL DISTENTION SOFT, STATED HURTS WHEN TOUCH, HAS HERNIA. ASSISTED FLUID INTAKE. NO OTHER COMPLAINTS MADE.
[2020-08-17 07:23] LABS: BASOPHILS % (AUTO) 0.5 % (0.0-2.0); EOSINOPHILS % (AUTO) 0.2 % (0.0-6.0); HEMATOCRIT 34 % (33-45); HEMOGLOBIN 10.8 g/dL (11.5-14.8); LYMPHOCYTES # (AUTO) 1.1 /CMM (0.8-4.8); LYMPHOCYTES % (AUTO) 15.7 % (20.0-44.0); MEAN CORPUSCULAR HGB CONC 32 g/dl (31.0-36.0); MEAN CORPUSCULAR VOLUME 83 fL (82-100); MONOCYTES # (AUTO) 1.3 /CMM (0.1-1.30); MONOCYTES % (AUTO) 18.7 % (2.0-12.0); NEUTROPHILS # (AUTO) 4.4 /CMM (1.8-8.9); NEUTROPHILS % (AUTO) 64.9 % (43.0-81.0); PLATELET COUNT (AUTO) 149 /CMM (150-450); RED BLOOD CELL COUNT(AUTO) 4.13 MIL/uL (4.0-5.2); WHITE BLOOD COUNT (AUTO) 6.8 K/uL (4.3-11.0)
--- NOTE | 2020-08-17 07:45 | NUR ---
MOLDER BENCH OPENING NOTE PATIENT IS IN BED RESTING COMFORTABLY. PATIENT IS IN NO ACUTE DISTRESS. NO SOB NOTED. PATIENT IS ON OXYGEN NC ON 2L. PATIENT IS ON ADMINISTRATION VICE PRESIDENT READING SR WITH PAC 90-100. NO FACIAL GRIMACING OR SIGNS OF PAIN PRESENT. BED ALARM IS ON. CALL LIGHT WITHIN REACH. BED IS IN THE LOWEST POSITION WITH SIDES RAILS UP. WILL CONTINUE TO MONITOR.
[2020-08-17 07:52] LABS: CALCIUM, SERUM 8.3 mg/dL (8.5-10.1); CREATININE 0.7 mg/dL (0.6-1.3); POTASSIUM 3.8 mmol/L (3.5-5.1)
[2020-08-17 08:00] VITALS: BP 105/55
[2020-08-17] MEDS: BACLOFEN (10 MG) 10 MG TABLET PO SCH ×3 (08:17→16:17)
[2020-08-17] MEDS: PANTOPRAZOLE 40 MG TABLET.DR PO SCH (08:17)
[2020-08-17] MEDS: MONTELUKAST SODIUM (10MG) 10 MG TABLET PO SCH (08:17)
[2020-08-17] MEDS: SUCRALFATE 1 G TABLET PO SCH ×4 (08:17→20:36)
[2020-08-17] MEDS: ALPRAZOLAM 0.5 MG TABLET PO SCH ×2 (08:17→16:17)
[2020-08-17] MEDS: GABAPENTIN 300 MG CAPSULE PO SCH ×3 (08:18→16:17)
[2020-08-17] MEDS: CALCIUM CARBONATE (1250) 500 MG TABLET PO SCH (08:18)
[2020-08-17] MEDS: FOLIC ACID 1 MG TABLET PO SCH (08:18)
[2020-08-17] MEDS: SERTRALINE HCL 50 MG TABLET PO SCH (08:18)
[2020-08-17] MEDS: RIVAROXABAN 15 MG TABLET PO SCH ×2 (08:23→16:29)
[2020-08-17] MEDS: CEFEPIME 2 GM in IV D5W 100 ML IV SCH ×2 (08:23→20:35)
[2020-08-17] MEDS: MUPIROCIN OINT 2% 22 GM TUBE NS SCH ×2 (08:23→20:51)
[2020-08-17] MEDS: FLUTICASONE PROPIONATE 16 GM BOTTLE NS SCH (08:23)
[2020-08-17] MEDS: SPIRONOLACTONE 25 MG TABLET PO SCH (08:26)
--- NOTE | 2020-08-17 08:29 | NUR ---
PROFESSIONAL PROGRAMMER ANALYST NOTE DID NOT ADMINISTER SCHEDULED MEDICATION SPIRONOLACTONE DUE TO PATIENTS DECREASED BLOOD PRESSURE.
[2020-08-17] MEDS: ANASTROZOLE 1 MG TABLET PO SCH (08:37)
--- NOTE | 2020-08-17 08:43 | NUR ---
WOUND CARE CONSULT: PT PRESENTS WITH MULTIPLE SKIN ISSUES INCLUDING LEFT EAR DRY LESION, LEFT LOWER LEG REDNESS, LEFT FOOT WOUND, RT HEEL SCAR/CALLUS AND RASHES TO BREASTFOLDS, ABDOMINAL/GROIN FOLDS AND FUNGATING LESION TO LEFT BREAST, ALL PRESENT ON ADMISSION. PT STATES HAS BEEN SEEN BY HER HUMIDIFIER MAINTENANCE WORKER FOR EAR LESION. DPM AND SURGICAL CONSULTS CALLED TO DR NYE AND DR LAURYN MEDINA. RECOMMENDATIONS MADE FOR SKIN PROTECTION. DISCUSSED WITH NURSING STAFF. PT IS ON DAMARI ISOFLEX LOW AIRLOSS BED. IN AGREEMENT WITH PLAN OF CARE. Addendum: 08/17/20 at 0846 by WALTER CHIU WNDNU Amended: Links added.
[2020-08-17] MEDS: CLOTRIMAZOLE 1% 15 GM TUBE TP SCH ×2 (10:15→18:22)
[2020-08-17] MEDS: HYDROCODONE/APAP 10/325MG TABLET PO PRN (10:16)
--- NOTE | 2020-08-17 10:30 | NUR ---
USABILITY SPECIALIST NOTE PATIENT HAD INFILTRATION AFTER STARTING SCHEDULED IV INFUSION MEDICATION. STOPPED INFUSION, ATTEMPTED TO START NEW IV LINE IN DIFFERENT LOCATION. THE ATTEMPT WAS UNSUCCESSFUL. PATIENT HAS BAD VEINS. SPOKE WITH SHARMILA CHARGE NURSE MADE AWARE. SHARMILA CHARGE NURSE CALLED TO FIND OUT REGARDING MIDLINE PLACEMENT. NURSE FROM ICU WILL COME UP AND PLACE A MIDLINE ON THE PATIENT.
[2020-08-17 10:54] LABS: BAND % (MANUAL) 4 % (0.0-5.0); LYMPHOCYTES % (MANUAL) 17 % (16-48); MONOCYTES % (MANUAL) 19 % (0-11.0); NEUTROPHILS % (MANUAL) 60 (42-76)
[2020-08-17] MEDS: VANCOMYCIN 1.25 GM in IV D5W 250 ML IV SCH (14:02)
--- NOTE | 2020-08-17 14:03 | NUR ---
DRILL FOREMAN NOTE PATIENT HAD MIDLINE PLACED ON RIGHT UPPER ARM 18 ELBERT
[2020-08-17 16:00] VITALS: BP 131/64
--- NOTE | 2020-08-17 18:41 | NUR ---
SUPPLY PERSON CLOSING NOTES PATIENT IS IN BED RESTING COMFORTABLY. PATIENT IS IN NO ACUTE DISTRESS. NO SOB NOTED. PATIENT IS ON OXYGEN NC ON 2L. PATIENT IS ON NURSE RESEARCHER READING SR BBB 95. PATIENT HAD MIDLINE PLACEMENT ON RIGHT UPPER ARM 18GG. PATIENT KEPT CLEAN DRY, AND COMFORTABLE THROUGHOUT THE SHIFT. NO FACIAL GRIMACING OR SIGNS OF PAIN PRESENT. BED ALARM IS ON. CALL LIGHT WITHIN REACH. BED IS IN THE LOWEST POSITION WITH SIDES RAILS UP. ENDORSE TO FUDGE CANDY MAKER NURSE FOR DEVANTE.
--- NOTE | 2020-08-17 19:00 | NUR ---
winter intern opening notes received patient in bed awake alert and oriented x3, able to make simple needs known, respirations even and unlabored with equal rise and fall of chest, denies any pain or discomfort at this time, on 2 l via nc tolerating well, right upper arm midline intact and patent, dsg is c/d/i. safety precautions rendered, low bed and locked, bed alarm in place, heels offloaded, oriented to staff and call light and kept within reach, all needs attended will cont to monitor.on air sampling and monitoring sr 91.
[2020-08-17 20:00] VITALS: BP 108/51
[2020-08-18] VITALS: BP 104/55
[2020-08-18 04:00] VITALS: BP 115/54
--- NOTE | 2020-08-18 06:29 | NUR ---
kinesiology internship closing notes patient in bed awake alert and oriented x3, able to make needs known, respirations even and unlabored with equal rise and fall of chest, denies any pain or discomfort at this time, on 2 l via nc tolerating well, right upper arm midline intact and patent, dsg is c/d/i. safety precautions rendered, low bed and locked, bed alarm in place, heels offloaded, remains comfortable, noted ruptured and fluid blister to left side abd. kept clean and dry and offloaded , mepilex in place, abd and groin folds cleansed and wound care done as recommended. left ear lesion dsg remain intact and offloaded, call light kept within reach, all needs attended will cont to monitor.on live source operator sr 85. will endorse to next shift.
--- NOTE | 2020-08-18 07:30 | NUR ---
PREPARATION SUPERVISOR FREEZING OPENING NOTE PATIENT IS IN BED RESTING COMFORTABLY. PATIENT IS IN NO ACUTE DISTRESS. NO SOB NOTED. PATIENT IS ON OXYGEN NC ON 2L. PATIENT IS ON FIELD SEISMOLOGIST READING SR WITH PAC TACHY 105. NO FACIAL GRIMACING OR SIGNS OF PAIN PRESENT. BED ALARM IS ON. CALL LIGHT WITHIN REACH. BED IS IN THE LOWEST POSITION WITH SIDES RAILS UP. WILL CONTINUE TO MONITOR.
[2020-08-18 08:00] VITALS: BP 114/51
[2020-08-18 08:06] LABS: BASOPHILS # (AUTO) 0.1 /CMM (0.0-0.2); BASOPHILS % (AUTO) 0.5 % (0.0-2.0); EOSINOPHILS % (AUTO) 0.1 % (0.0-6.0); HEMATOCRIT 36 % (33-45); HEMOGLOBIN 11.1 g/dL (11.5-14.8); LYMPHOCYTES # (AUTO) 1.8 /CMM (0.8-4.8); LYMPHOCYTES % (AUTO) 10.2 % (20.0-44.0); MEAN CORPUSCULAR HGB CONC 31 g/dl (31.0-36.0); MEAN CORPUSCULAR VOLUME 83 fL (82-100); MONOCYTES # (AUTO) 1.5 /CMM (0.1-1.30); MONOCYTES % (AUTO) 8.5 % (2.0-12.0); NEUTROPHILS # (AUTO) 14.5 /CMM (1.8-8.9); NEUTROPHILS % (AUTO) 80.7 % (43.0-81.0); PLATELET COUNT (AUTO) 157 /CMM (150-450); RED BLOOD CELL COUNT(AUTO) 4.28 MIL/uL (4.0-5.2); WHITE BLOOD COUNT (AUTO) 17.9 K/uL (4.3-11.0)
--- NOTE | 2020-08-18 08:21 | NUR ---
WOUND CARE CONSULT: PT SEEN FOR LEFT ABDOMEN OPEN BLISTER WITH DISCOLORED AREA TO PERIWOUND WHICH WAS PRESENT ON ADMISSION, NOW OPEN. NO TENDERNESS, DRAINAGE OR ERYTHEMA NOTED. RECOMMENDATIONS MADE FOR SKIN PROTECTION AND WOUND CARE. DISCUSSED WITH NURSING STAFF AND Ana SRINIVASAN, SURGICAL N.PArtemio CURRENTLY ON CASE. WILL SEE PRN. GRESHAM IN AGREEMENT WITH PLAN OF CARE. Addendum: 08/18/20 at 0822 by WALTER CHIU WNDNU Amended: Links added.
[2020-08-18] MEDS: FOLIC ACID 1 MG TABLET PO SCH (08:23)
[2020-08-18] MEDS: MONTELUKAST SODIUM (10MG) 10 MG TABLET PO SCH (08:23)
[2020-08-18] MEDS: SUCRALFATE 1 G TABLET PO SCH ×4 (08:23→20:48)
[2020-08-18] MEDS: CALCIUM CARBONATE (1250) 500 MG TABLET PO SCH (08:23)
[2020-08-18] MEDS: ALPRAZOLAM 0.5 MG TABLET PO SCH ×2 (08:23→17:11)
[2020-08-18] MEDS: PANTOPRAZOLE 40 MG TABLET.DR PO SCH (08:23)
[2020-08-18] MEDS: GABAPENTIN 300 MG CAPSULE PO SCH ×3 (08:23→17:11)
[2020-08-18] MEDS: ACETAMINOPHEN 325 MG TABLET PO PRN ×2 (08:24→18:51)
[2020-08-18] MEDS: SPIRONOLACTONE 25 MG TABLET PO SCH (08:24)
[2020-08-18] MEDS: BACLOFEN (10 MG) 10 MG TABLET PO SCH ×3 (08:24→17:11)
[2020-08-18] MEDS: SERTRALINE HCL 50 MG TABLET PO SCH (08:24)
[2020-08-18] MEDS: VANCOMYCIN 1.25 GM in IV D5W 250 ML IV SCH ×2 (08:26→09:37)
[2020-08-18 08:32] LABS: CALCIUM, SERUM 8.6 mg/dL (8.5-10.1); CREATININE 0.5 mg/dL (0.6-1.3); POTASSIUM 4.1 mmol/L (3.5-5.1)
[2020-08-18] MEDS: MUPIROCIN OINT 2% 22 GM TUBE NS SCH ×2 (08:41→20:48)
--- NOTE | 2020-08-18 08:43 | NUR ---
DEVELOPMENTAL PSYCHOLOGIST NOTE SCHEDULED VANCOMYCIN WAS NOT GIVEN, WAITING ON THE LAB TO DRAW BLOOD FOR VANCO THROUGH LEVELS.
[2020-08-18] MEDS: FLUTICASONE PROPIONATE 16 GM BOTTLE NS SCH (09:34)
[2020-08-18] MEDS: ANASTROZOLE 1 MG TABLET PO SCH (09:34)
[2020-08-18] MEDS: CLOTRIMAZOLE 1% 15 GM TUBE TP SCH ×2 (09:37→17:33)
[2020-08-18] MEDS: RIVAROXABAN 15 MG TABLET PO SCH ×2 (09:59→17:12)
[2020-08-18 11:48] LABS: BAND % (MANUAL) 4 % (0.0-5.0); LYMPHOCYTES % (MANUAL) 4 % (16-48); MONOCYTES % (MANUAL) 7 % (0-11.0); MYELOCYTES % 6 % (0-0); NEUTROPHILS % (MANUAL) 79 (42-76)
[2020-08-18] MEDS: CEFEPIME 2 GM in IV D5W 100 ML IV SCH ×2 (12:02→20:47)
--- NOTE | 2020-08-18 12:02 | NUR ---
STAGING TECHNICIAN NOTE ADMINISTERED MAXIPIME LATE DUE TO PREVIOUS MEDICATION VANCOMYCIN INFUSION STARTED LATE, WAS WAITING ON VANCO THROUGH RESULTS.
--- NOTE | 2020-08-18 13:16 | NUR ---
GENERATION TECHNOLOGIST NOTE SCHEDULED MEDICATIONS NEURONTIN, BACLOFEN AND SUCRALFATE WERE NOT GIVEN. PATIENT IS TOO ASLEEP TO TAKE THEM AT THIS TIME.
[2020-08-18 16:00] VITALS: BP 137/56
--- NOTE | 2020-08-18 19:40 | NUR ---
RN NOTES RECEIVED PT. AWAKE ON BED, A/OX3, SR WITH PAC AND PVC ON TELE MONITOR HR-92, NOT IN DISTRESS, NO PAIN NOTED, CALL LIGHT WITHIN REACH, BED IN LOW POSITION, SIDERAILSUPX2, CONTINUE TO MONITOR
[2020-08-18 20:00] VITALS: BP 135/71
[2020-08-19] MEDS: VANCOMYCIN 1.25 GM in IV D5W 250 ML IV SCH (01:17)
[2020-08-19 04:00] VITALS: BP 111/58
[2020-08-19 06:07] LABS: CALCIUM, SERUM 8.9 mg/dL (8.5-10.1); CREATININE 0.6 mg/dL (0.6-1.3); POTASSIUM 3.8 mmol/L (3.5-5.1)
[2020-08-19 06:09] LABS: BASOPHILS # (AUTO) 0.1 /CMM (0.0-0.2); BASOPHILS % (AUTO) 0.6 % (0.0-2.0); EOSINOPHILS % (AUTO) 0.1 % (0.0-6.0); HEMATOCRIT 35 % (33-45); HEMOGLOBIN 10.7 g/dL (11.5-14.8); LYMPHOCYTES # (AUTO) 1.3 /CMM (0.8-4.8); LYMPHOCYTES % (AUTO) 10.1 % (20.0-44.0); MEAN CORPUSCULAR HGB CONC 31 g/dl (31.0-36.0); MEAN CORPUSCULAR VOLUME 83 fL (82-100); MONOCYTES # (AUTO) 1.2 /CMM (0.1-1.30); MONOCYTES % (AUTO) 9.4 % (2.0-12.0); NEUTROPHILS # (AUTO) 10.4 /CMM (1.8-8.9); NEUTROPHILS % (AUTO) 79.8 % (43.0-81.0); PLATELET COUNT (AUTO) 142 /CMM (150-450); RED BLOOD CELL COUNT(AUTO) 4.17 MIL/uL (4.0-5.2)
--- NOTE | 2020-08-19 06:40 | NUR ---
RN NOTES SLEEPING BUT AROUSABLE, NOT IN DISTRESS, NO PAIN NOTED, MORNING CARE RENDERED, PT. NEEDS ATTENDED
--- NOTE | 2020-08-19 07:50 | NUR ---
FOOD SALES CLERK OPENING NOTES PATIENT ASLEEP IN BED; ON O2 AT 3 LPM VIA NASAL CANNULA. BREATHING IS EVEN AND UNLABORED; NO SOB PRESENT AT THIS TIME. SO S/S OF PAIN SUCH FACIAL GRIMACING, MOANING OR GUARDING. CORTNEY MIDLINE PRESENT AND INTACT. SAFETY PRECAUTIONS IN PLACE; BED IN LOW POSITION AND LOCKED, RAILS UP X2, CALL LIGHT WITHIN REACH. WILL CONTINUE TO MONITOR PATIENT.
[2020-08-19 08:00] VITALS: BP 121/56
[2020-08-19] MEDS: MUPIROCIN OINT 2% 22 GM TUBE NS SCH (08:02)
[2020-08-19] MEDS: CLOTRIMAZOLE 1% 15 GM TUBE TP SCH ×2 (08:04→17:11)
[2020-08-19] MEDS: SPIRONOLACTONE 25 MG TABLET PO SCH (09:26)
[2020-08-19] MEDS: PANTOPRAZOLE 40 MG TABLET.DR PO SCH (09:26)
[2020-08-19] MEDS: ALPRAZOLAM 0.5 MG TABLET PO SCH ×2 (09:26→17:15)
[2020-08-19] MEDS: SUCRALFATE 1 G TABLET PO SCH ×3 (09:26→17:15)
[2020-08-19] MEDS: CALCIUM CARBONATE (1250) 500 MG TABLET PO SCH (09:26)
[2020-08-19] MEDS: GABAPENTIN 300 MG CAPSULE PO SCH ×3 (09:26→17:15)
[2020-08-19] MEDS: BACLOFEN (10 MG) 10 MG TABLET PO SCH ×3 (09:26→17:14)
[2020-08-19] MEDS: MONTELUKAST SODIUM (10MG) 10 MG TABLET PO SCH (09:26)
[2020-08-19] MEDS: FOLIC ACID 1 MG TABLET PO SCH (09:26)
[2020-08-19] MEDS: SERTRALINE HCL 50 MG TABLET PO SCH (09:27)
[2020-08-19] MEDS: FLUTICASONE PROPIONATE 16 GM BOTTLE NS SCH (09:27)
[2020-08-19] MEDS: RIVAROXABAN 15 MG TABLET PO SCH ×2 (09:29→17:15)
[2020-08-19] MEDS: ANASTROZOLE 1 MG TABLET PO SCH (09:30)
[2020-08-19] MEDS: CEFEPIME 2 GM in IV D5W 100 ML IV SCH (09:31)
[2020-08-19] MEDS: ENSURE ENLIVE 237 ML LIQUID (VANILLA) PO SCH ×2 (09:51→17:11)
[2020-08-19] MEDS ORDERED: DOXY100C41 PO (10:09)
--- NOTE | 2020-08-19 11:42 | NUR ---
OPEN HEARTH HELPER NOTES PATIENT COMPLAINING OF GENERALIZED PAIN; REQUESTING PAIN MEDICATION. PRN NORCO ADMINISTERED. WILL REASSESS.
[2020-08-19 12:47] LABS: BAND % (MANUAL) 5 % (0.0-5.0); LYMPHOCYTES % (MANUAL) 12 % (16-48); MONOCYTES % (MANUAL) 7 % (0-11.0); NEUTROPHILS % (MANUAL) 76 (42-76)
--- NOTE | 2020-08-19 15:20 | NUR ---
CASSANDRA DEVELOPER NOTES WAS TAKING PICTURES OF THE PATIENT. HALF WAY PATIENT REFUSED FURTHER PICTURE TAKING.
--- NOTE | 2020-08-19 17:58 | NUR ---
AUTO PARTS COUNTER PERSONTRAILER MECHANIC NOTES PATIENT DISCHARGED HOME WITH HOME-HEALTH. PATIENT MEDICALLY STABLE, A/O X1/2. ALL DISCHARGE PAPERWORK READY AND SIGNED BY 2 RNs. BELONGINGS ACCOUNTED FOR AND THE FORM SIGNED WELL. SOME PICTURES WERE TAKEN BUT NOT ALL DUE TO PATIENT REFUSAL TO CONTINUE. FAMILY CONTACTED AND NOTIFIED REGARDING DISCHARGE ARTIFICIAL INSEMINATION TECHNICIAN TIME AND TEACHING REGARDING DISCHARGE MEDICATIONS PROVIDED. PICTURES FILED. BEFORE LEAVING THE FLOOR IV ACCESS WAS REMOVED. PATIENT WAS PICKED UP BY 2 floor grinder AND LEFT THE UNIT AROUND 1730
[2020-08-19] MEDS ORDERED: VANCOMYCIN 1 GM in IV D5W 250 ML IV SCH (19:00)
== END 2020-08-19 17:54 | disposition home health service (06) | DRG 291 ==
LOC: ER 19:46 → OBSER 08-14 00:45 → TRANSITION 08-14 04:38 → TELE 08-16 07:29
PROVIDERS: ADMIT Nurse Practitioner Acute Care; ATTEND Nurse Practitioner Acute Care
PROC: 05HD33Z Insertion of Infusion Device into Right Cephalic Vein, Percutaneous Approach (ICD-10-PCS; principal; 2020-08-14)
DX: I13.0 Hypertensive heart and chronic kidney disease with heart failure and stage 1 through stage 4 chronic kidney disease, or unspecified chronic kidney disease (principal); I50.33 Acute on chronic diastolic (congestive) heart failure; J96.21 Acute and chronic respiratory failure with hypoxia; D61.818 Other pancytopenia; D68.9 Coagulation defect, unspecified; J44.1 Chronic obstructive pulmonary disease with (acute) exacerbation; Z68.41 Body mass index [BMI] 40.0-44.9, adult; I82.411 Acute embolism and thrombosis of right femoral vein; I82.431 Acute embolism and thrombosis of right popliteal vein; I85.10 Secondary esophageal varices without bleeding; K76.6 Portal hypertension; C79.9 Secondary malignant neoplasm of unspecified site; I25.10 Atherosclerotic heart disease of native coronary artery without angina pectoris; N18.9 Chronic kidney disease, unspecified; Z87.11 Personal history of peptic ulcer disease; Z79.899 Other long term (current) drug therapy; Z79.4 Long term (current) use of insulin; Z79.01 Long term (current) use of anticoagulants; Z79.811 Long term (current) use of aromatase inhibitors; Z20.828 Contact with and (suspected) exposure to other viral communicable diseases; Z99.81 Dependence on supplemental oxygen; K43.9 Ventral hernia without obstruction or gangrene; Z90.10 Acquired absence of unspecified breast and nipple; Z79.83 Long term (current) use of bisphosphonates; M19.011 Primary osteoarthritis, right shoulder; M20.42 Other hammer toe(s) (acquired), left foot; M20.41 Other hammer toe(s) (acquired), right foot; K80.20 Calculus of gallbladder without cholecystitis without obstruction; K74.60 Unspecified cirrhosis of liver; E66.01 Morbid (severe) obesity due to excess calories; F10.20 Alcohol dependence, uncomplicated; Y90.9 Presence of alcohol in blood, level not specified; C50.919 Malignant neoplasm of unspecified site of unspecified female breast; Z92.21 Personal history of antineoplastic chemotherapy; F32.9 Major depressive disorder, single episode, unspecified; F17.210 Nicotine dependence, cigarettes, uncomplicated; E78.5 Hyperlipidemia, unspecified; F41.9 Anxiety disorder, unspecified; I70.0 Atherosclerosis of aorta; I86.4 Gastric varices; D70.9 Neutropenia, unspecified; M21.612 Bunion of left foot; M21.611 Bunion of right foot; G62.9 Polyneuropathy, unspecified; L89.896 Pressure-induced deep tissue damage of other site; L89.616 Pressure-induced deep tissue damage of right heel; I87.2 Venous insufficiency (chronic) (peripheral)
CPT/HCPCS: 36415; 71045-TC; 76700-TC; 80048-TC; 80061-TC; 80076-TC; 80202-TC; 81001; 82962-TC; 83605-TC; 83735-TC; 83880; 84100-TC; 84443-TC; 84484-TC; 85025-TC; 85385-TC; 85396; 85610-TC; 85730-TC; 86300; 87040-TC; 87081-TC; 97112-TC; 97530-TC; A6403; C9803; G0378; J0692; J1447; J1940; J2405; J3370; J3475; J7030; J7050; J7060; U0003

== ENCOUNTER 2020-08-20 02:27 | Inpatient (IN) | payer MEDICARE, OTHER ==
[~2020-08-20] VITALS: Ht 162.6 cm; Wt 108.9 kg
[~2020-08-20 02:27] MED LIST changes: +DOXY100C41 PO; -RIVA10TA PO
--- NOTE | 2020-08-20 02:51 | NUR ---
Patient came to the ER bed 18 c/o SOB since today. Patient was found at home without any oxygen per report given by ambulance members. Patient states she usually is on oxygen at home. Patient is AAox4. Breathing evenly and unlabored on 2l N/C at 99%. Connected to the personnel monitor.
--- NOTE | 2020-08-20 03:03 | NUR ---
Patient's urine, blood, blood cultures, influenza swab sample, COVID rapid swab sample collected and sent to the lab.
[2020-08-20] MEDS ORDERED: ACETAMINOPHEN ES 500 MG TABLET ONE (03:27)
[2020-08-20] MEDS ORDERED: ACETAMINOPHEN ES 500 MG TABLET PO ONE (03:30)
[2020-08-20 03:43] LABS: BASOPHILS % (AUTO) 0.2 % (0.0-2.0); EOSINOPHILS % (AUTO) 0.2 % (0.0-6.0); HEMATOCRIT 37 % (33-45); HEMOGLOBIN 11.3 g/dL (11.5-14.8); LYMPHOCYTES # (AUTO) 0.5 /CMM (0.8-4.8); LYMPHOCYTES % (AUTO) 4.7 % (20.0-44.0); MEAN CORPUSCULAR HGB CONC 31 g/dl (31.0-36.0); MEAN CORPUSCULAR VOLUME 84 fL (82-100); MONOCYTES # (AUTO) 1.5 /CMM (0.1-1.30); MONOCYTES % (AUTO) 12.9 % (2.0-12.0); NEUTROPHILS # (AUTO) 9.3 /CMM (1.8-8.9); PLATELET COUNT (AUTO) 161 /CMM (150-450); RED BLOOD CELL COUNT(AUTO) 4.37 MIL/uL (4.0-5.2); WHITE BLOOD COUNT (AUTO) 11.3 K/uL (4.3-11.0)
[2020-08-20 03:49] LABS: CALCIUM, SERUM 8.9 mg/dL (8.5-10.1); CARBON DIOXIDE 38 mmol/L (21-32); CHLORIDE 104 mmol/L (98-107); CREATININE 0.7 mg/dL (0.6-1.3); GLUCOSE 175 mg/dL (74-106); POTASSIUM 4.2 mmol/L (3.5-5.1); SODIUM SERUM 141 mmol/L (136-145); UREA NITROGEN, BLOOD 10 mg/dL (7-18)
[2020-08-20 03:51] LABS: ABG BASE EXCESS 7.6 mmol/L; ABG OXYGEN SATURATION 96.1 % (92.0-98.5); ABG PCO2 76.8 mmHg (35.0-45.0); ABG PH 7.294 (7.350-7.450); ABG PO2 96.1 mmHg (75.0-100.0); AaDO2 42.2 mmHg; COHb 0.9 % (0.5-1.5); MetHb 0.3 % (0.0-1.5); O2Hb 94.9 % (94.0-97.0); SITE, ABG Left Radial; VENT MODE, BG 3lLNC
[2020-08-20 03:57] LABS: D-DIMER 4.28 mg/L(FEU (0.17-0.50)
[2020-08-20 04:01] LABS: ALANINE AMINOTRANSFERASE 25 U/L (12-78); ALBUMIN 1.9 g/dL (3.4-5.0); ALKALINE PHOSPHATASE 173 U/L (46-116); ASPARTATE AMINOTRANSFERASE 40 U/L (15-37); B-TYPE NATRIURETIC PEPTIDE 1171 PG/ML (0-125); BILIRUBIN,TOTAL 0.5 mg/dL (0.2-1.0); TOTAL PROTEIN, SERUM 6.5 g/dL (6.4-8.2)
[2020-08-20 04:05] LABS: CREATINE KINASE, TOTAL 47 U/L (26-192); FERRITIN 146 ng/mL (8-388)
[2020-08-20 04:06] LABS: C-REACTIVE PROTEIN 8.7 mg/dL (0.0-0.9)
[2020-08-20] MEDS ORDERED: FUROSEMIDE 40 MG/4 ML VIAL IV ONE (04:30)
[2020-08-20] MEDS ORDERED: FUROSEMIDE 40 MG/4 ML VIAL ONE (04:32)
[2020-08-20] MEDS ORDERED: MAGNESIUM HYDROXIDE 30 ML UDC PO PRN (05:00)
[2020-08-20] MEDS ORDERED: ONDANSETRON HCL/PF 4 MG/2 ML VIAL IVP PRN (05:00)
[2020-08-20] MEDS ORDERED: MAG HYDROX/AL HYDROX/SIMETH 30 ML UDC PO PRN (05:00)
[2020-08-20] MEDS ORDERED: Z GUARD REMEDY 2 OZ OINT TP PRN (05:00)
[2020-08-20] MEDS ORDERED: SULINDAC 200 MG TABLET PO SCH (09:00)
[2020-08-20] MEDS ORDERED: SPIRONOLACTONE 25 MG TABLET PO SCH (09:00)
[2020-08-20] MEDS ORDERED: FOLIC ACID 1 MG TABLET PO SCH (09:00)
[2020-08-20] MEDS ORDERED: MONTELUKAST SODIUM (10MG) 10 MG TABLET PO SCH (09:00)
[2020-08-20] MEDS ORDERED: BACLOFEN (10 MG) 10 MG TABLET PO SCH (09:00)
[2020-08-20] MEDS ORDERED: SUCRALFATE 1 G TABLET PO SCH (09:00)
[2020-08-20] MEDS ORDERED: GABAPENTIN 300 MG CAPSULE PO SCH (09:00)
[2020-08-20] MEDS ORDERED: BACLOFEN (10 MG) 10 MG TABLET ONE ×3 (09:38→16:13)
[2020-08-20] MEDS ORDERED: DOXYCYCLINE HYCLATE (100 MG) 100 MG TABLET ONE ×2 (09:38→20:37)
[2020-08-20] MEDS ORDERED: ALPRAZOLAM 0.5 MG TABLET ONE ×2 (09:38→16:13)
[2020-08-20] MEDS ORDERED: MONTELUKAST SODIUM (10MG) 10 MG TABLET ONE (09:39)
[2020-08-20] MEDS ORDERED: SPIRONOLACTONE 25 MG TABLET ONE (09:39)
[2020-08-20] MEDS ORDERED: FOLIC ACID 1 MG TABLET ONE (09:39)
[2020-08-20] MEDS ORDERED: PANTOPRAZOLE 40 MG TABLET.DR PO ONE ×2 (09:39→16:14)
[2020-08-20] MEDS ORDERED: GABAPENTIN 300 MG CAPSULE ONE ×3 (09:39→16:13)
[2020-08-20] MEDS: FOLIC ACID 1 MG TABLET PO SCH (09:40)
[2020-08-20] MEDS: SUCRALFATE 1 G TABLET PO SCH ×4 (09:40→21:00)
[2020-08-20] MEDS: ALPRAZOLAM 1 MG TABLET PO SCH ×2 (09:40→16:15)
[2020-08-20] MEDS ORDERED: SUCRALFATE 1 G TABLET ONE ×3 (09:40→16:14)
[2020-08-20] MEDS: GABAPENTIN 300 MG CAPSULE PO SCH ×3 (09:40→16:15)
[2020-08-20] MEDS: BACLOFEN (10 MG) 10 MG TABLET PO SCH ×3 (09:41→16:15)
[2020-08-20] MEDS: ASCORBIC ACID 500 MG TABLET PO SCH (09:41)
[2020-08-20] MEDS: SPIRONOLACTONE 25 MG TABLET PO SCH (09:41)
[2020-08-20] MEDS: PANTOPRAZOLE 40 MG TABLET.DR PO SCH ×2 (09:41→16:15)
[2020-08-20] MEDS: MONTELUKAST SODIUM (10MG) 10 MG TABLET PO SCH (09:41)
[2020-08-20] MEDS: PROPRANOLOL HCL 10 MG TABLET PO SCH ×2 (09:50→16:58)
[2020-08-20] MEDS: SERTRALINE HCL 50 MG TABLET PO SCH (09:50)
[2020-08-20] MEDS: CALCIUM CARBONATE (1250) 500 MG TABLET PO SCH (09:50)
[2020-08-20] MEDS: ANASTROZOLE 1 MG TABLET PO SCH (09:51)
[2020-08-20] MEDS: FLUTICASONE PROPIONATE 16 GM BOTTLE NS SCH (10:00)
[2020-08-20] MEDS ORDERED: DOXYCYCLINE HYCLATE (100 MG) 100 MG TABLET PO SCH (11:00)
[2020-08-20] MEDS: DOXYCYCLINE HYCLATE (100 MG) 100 MG TABLET PO SCH (20:51)
[2020-08-20] MEDS ORDERED: TRAZODONE 50 MG TABLET ONE (21:00)
[2020-08-20] MEDS: TRAZODONE 50 MG TABLET PO SCH (21:10)
[2020-08-20] MEDS ORDERED: TRAZODONE 50 MG TABLET PO SCH (22:00)
[2020-08-21] MEDS ORDERED: ENOXAPARIN SODIUM 40 MG/0.4 ML DISP.SYRIN SQ ONE ×2 (00:43→21:31)
--- NOTE | 2020-08-21 01:49 | NUR ---
PATIENT ASLEEP. EASILY AROUSABLE THROUGH VERBAL STIMULI. BREATHING EVENLY AND UNLABORED 2L OF NASAL CANNULA SATURATING AT 100%. CONNECTED TO THE MONITOR. PATIENT'S SIDERAILS ARE UP FOR PATIENT'S SAFETY. PATIENT'S BED IS AT THE LOWEST POSITION. CALL LIGHT IS WITHIN REACH. WILL CONTINUE TO MONITOR PATIENT VERY CLOSELY.
--- NOTE | 2020-08-21 02:05 | NUR ---
PATIENT IS RESPOSITIONED AND PULLED UP TOWARDS THE HEAD OF THE BED.
--- NOTE | 2020-08-21 06:18 | NUR ---
PATIENT IS SLEEPING. PATIENT IS EASILY AROUSABLE THROUGH VERBAL STIMULI. BREATHING EVENLY AND UNLABORED ON 2L OF NASAL CANNULA AT 100%. CONNECTED TO THE MONITOR. PATIENT'S SIDERAILS ARE UP FOR PATIENT'S SAFETY. PATIENT'S BED IS PLACED IN THE LOWEST POSITION. CALL LIGHT IS WITHIN REACH. WILL CONTINUE TO MONITOR PATIENT VERY CLOSELY.
[2020-08-21 06:25] LABS: BASOPHILS # (AUTO) 0.1 /CMM (0.0-0.2); BASOPHILS % (AUTO) 1.1 % (0.0-2.0); HEMATOCRIT 36 % (33-45); HEMOGLOBIN 11.2 g/dL (11.5-14.8); LYMPHOCYTES # (AUTO) 1.3 /CMM (0.8-4.8); LYMPHOCYTES % (AUTO) 13.9 % (20.0-44.0); MEAN CORPUSCULAR HGB CONC 31 g/dl (31.0-36.0); MEAN CORPUSCULAR VOLUME 83 fL (82-100); MONOCYTES # (AUTO) 1.2 /CMM (0.1-1.30); MONOCYTES % (AUTO) 12.8 % (2.0-12.0); NEUTROPHILS # (AUTO) 6.8 /CMM (1.8-8.9); NEUTROPHILS % (AUTO) 72.2 % (43.0-81.0); PLATELET COUNT (AUTO) 154 /CMM (150-450); RED BLOOD CELL COUNT(AUTO) 4.38 MIL/uL (4.0-5.2); WHITE BLOOD COUNT (AUTO) 9.4 K/uL (4.3-11.0)
[2020-08-21 07:04] LABS: ALBUMIN 1.8 g/dL (3.4-5.0); BILIRUBIN,TOTAL 0.5 mg/dL (0.2-1.0); CREATININE 0.6 mg/dL (0.6-1.3); MAGNESIUM 1.8 mg/dL (1.8-2.4); PHOSPHORUS 2.9 mg/dL (2.5-4.9); POTASSIUM 3.9 mmol/L (3.5-5.1); TOTAL PROTEIN, SERUM 6.2 g/dL (6.4-8.2)
--- NOTE | 2020-08-21 07:26 | NUR ---
REPORT GIVEN TO KATERYNA RICARDO FOR DEVANTE.
[2020-08-21] MEDS: ALPRAZOLAM 1 MG TABLET PO SCH ×2 (09:00→17:08)
[2020-08-21] MEDS: BACLOFEN (10 MG) 10 MG TABLET PO SCH ×3 (09:00→17:08)
[2020-08-21] MEDS: ALENDRONATE 70 MG TABLET PO SCH ×2 (09:00→12:10)
[2020-08-21] MEDS: SUCRALFATE 1 G TABLET PO SCH ×4 (09:00→21:26)
[2020-08-21] MEDS: FOLIC ACID 1 MG TABLET PO SCH (09:00)
[2020-08-21] MEDS: CALCIUM CARBONATE (1250) 500 MG TABLET PO SCH (09:00)
[2020-08-21] MEDS: SPIRONOLACTONE 25 MG TABLET PO SCH (09:00)
[2020-08-21] MEDS: ASCORBIC ACID 500 MG TABLET PO SCH (09:00)
[2020-08-21] MEDS: MONTELUKAST SODIUM (10MG) 10 MG TABLET PO SCH (09:00)
[2020-08-21] MEDS: ERGOCALCIFEROL (VITAMIN D 2) 50,000 UNIT CAPSULE PO SCH ×3 (09:00→12:37)
[2020-08-21] MEDS: GABAPENTIN 300 MG CAPSULE PO SCH ×3 (09:00→17:08)
[2020-08-21] MEDS: DOXYCYCLINE HYCLATE (100 MG) 100 MG TABLET PO SCH ×2 (09:00→20:36)
[2020-08-21] MEDS: FLUTICASONE PROPIONATE 16 GM BOTTLE NS SCH (09:00)
[2020-08-21] MEDS: SERTRALINE HCL 50 MG TABLET PO SCH (09:00)
[2020-08-21] MEDS: PANTOPRAZOLE 40 MG TABLET.DR PO SCH ×2 (09:00→17:08)
[2020-08-21] MEDS: PROPRANOLOL HCL 10 MG TABLET PO SCH ×2 (09:00→17:08)
[2020-08-21] MEDS: ANASTROZOLE 1 MG TABLET PO SCH (09:00)
[2020-08-21] MEDS ORDERED: ALPRAZOLAM 0.5 MG TABLET ONE ×2 (10:45→17:07)
[2020-08-21] MEDS ORDERED: DOXYCYCLINE 100 MG VIAL ONE (12:06)
[2020-08-21] MEDS ORDERED: DOXYCYCLINE HYCLATE (100 MG) 100 MG TABLET ONE ×2 (12:06→20:33)
--- NOTE | 2020-08-21 12:30 | NUR ---
pt ate lunch bathed and repostioned vsscall light within reach
[2020-08-21] MEDS: FUROSEMIDE 40 MG/4 ML VIAL IV SCH (20:23)
[2020-08-21] MEDS ORDERED: FUROSEMIDE 40 MG/4 ML VIAL ONE (20:33)
[2020-08-21] MEDS ORDERED: ENOXAPARIN SODIUM 40 MG/0.4 ML DISP.SYRIN SQ SCH ×2 (21:00)
[2020-08-21] MEDS ORDERED: SUCRALFATE 1 G TABLET ONE (21:30)
--- NOTE | 2020-08-21 21:35 | NUR ---
PT PLACED ON 4L NC SAT 98%.
[2020-08-21] MEDS ORDERED: TRAZODONE 50 MG TABLET ONE (22:19)
[2020-08-21] MEDS: TRAZODONE 50 MG TABLET PO SCH (22:20)
--- NOTE | 2020-08-22 01:14 | NUR ---
PT RESTING COMFORTABLY. VSS.
--- NOTE | 2020-08-22 04:39 | NUR ---
PT CLEANED, REPOSITIONED, SAT 91% ON 2L NC
--- NOTE | 2020-08-22 06:23 | NUR ---
PT REPOSITIONED TO THE RIGHT, VSS.
[2020-08-22 07:56] LABS: BASOPHILS # (AUTO) 0.1 /CMM (0.0-0.2); BASOPHILS % (AUTO) 1.2 % (0.0-2.0); EOSINOPHILS % (AUTO) 0.2 % (0.0-6.0); HEMATOCRIT 37 % (33-45); HEMOGLOBIN 11.5 g/dL (11.5-14.8); LYMPHOCYTES # (AUTO) 1.4 /CMM (0.8-4.8); LYMPHOCYTES % (AUTO) 17.2 % (20.0-44.0); MEAN CORPUSCULAR HGB CONC 31 g/dl (31.0-36.0); MEAN CORPUSCULAR VOLUME 83 fL (82-100); MONOCYTES # (AUTO) 1.1 /CMM (0.1-1.30); MONOCYTES % (AUTO) 13.4 % (2.0-12.0); NEUTROPHILS # (AUTO) 5.4 /CMM (1.8-8.9); PLATELET COUNT (AUTO) 165 /CMM (150-450); RED BLOOD CELL COUNT(AUTO) 4.46 MIL/uL (4.0-5.2)
[2020-08-22] MEDS: ANASTROZOLE 1 MG TABLET PO SCH (08:00)
--- NOTE | 2020-08-22 08:00 | NUR ---
PATIENT A/OX3, ASSISTED WITH BREAKFAST. NO DISTRESS NOTED. VITALS STABLE.
[2020-08-22] MEDS: PROPRANOLOL HCL 10 MG TABLET PO SCH ×2 (08:01→16:18)
[2020-08-22] MEDS: CALCIUM CARBONATE (1250) 500 MG TABLET PO SCH (08:03)
[2020-08-22] MEDS: SERTRALINE HCL 50 MG TABLET PO SCH (08:04)
[2020-08-22] MEDS: ASCORBIC ACID 500 MG TABLET PO SCH (08:04)
[2020-08-22] MEDS ORDERED: ALPRAZOLAM 0.5 MG TABLET ONE ×2 (08:09→16:20)
[2020-08-22] MEDS ORDERED: GABAPENTIN 300 MG CAPSULE ONE ×3 (08:10→16:20)
[2020-08-22] MEDS ORDERED: FOLIC ACID 1 MG TABLET ONE (08:10)
[2020-08-22] MEDS ORDERED: BACLOFEN (10 MG) 10 MG TABLET ONE ×3 (08:10→16:20)
[2020-08-22] MEDS ORDERED: FUROSEMIDE 40 MG TABLET ONE (08:10)
[2020-08-22] MEDS ORDERED: MONTELUKAST SODIUM (10MG) 10 MG TABLET ONE (08:10)
[2020-08-22] MEDS ORDERED: PANTOPRAZOLE 40 MG TABLET.DR PO ONE ×2 (08:10→16:20)
[2020-08-22] MEDS ORDERED: DOXYCYCLINE HYCLATE (100 MG) 100 MG TABLET ONE (08:10)
[2020-08-22] MEDS ORDERED: SPIRONOLACTONE 25 MG TABLET ONE (08:11)
[2020-08-22] MEDS: DOXYCYCLINE HYCLATE (100 MG) 100 MG TABLET PO SCH ×2 (08:11→20:18)
[2020-08-22] MEDS ORDERED: SUCRALFATE 1 G TABLET ONE ×3 (08:11→16:21)
[2020-08-22] MEDS: SPIRONOLACTONE 25 MG TABLET PO SCH (08:12)
[2020-08-22] MEDS: FLUTICASONE PROPIONATE 16 GM BOTTLE NS SCH (08:12)
[2020-08-22] MEDS: SUCRALFATE 1 G TABLET PO SCH ×4 (08:13→20:18)
[2020-08-22] MEDS: GABAPENTIN 300 MG CAPSULE PO SCH ×3 (08:13→16:22)
[2020-08-22] MEDS: PANTOPRAZOLE 40 MG TABLET.DR PO SCH ×2 (08:13→16:22)
[2020-08-22] MEDS: FOLIC ACID 1 MG TABLET PO SCH (08:13)
[2020-08-22] MEDS: MONTELUKAST SODIUM (10MG) 10 MG TABLET PO SCH (08:13)
[2020-08-22] MEDS: BACLOFEN (10 MG) 10 MG TABLET PO SCH ×3 (08:13→16:21)
[2020-08-22] MEDS: ALPRAZOLAM 1 MG TABLET PO SCH ×2 (08:14→16:22)
[2020-08-22] MEDS: FUROSEMIDE 40 MG/4 ML VIAL IV SCH (08:15)
[2020-08-22] MEDS ORDERED: FUROSEMIDE 40 MG/4 ML VIAL ONE (08:15)
[2020-08-22 08:23] LABS: CALCIUM, SERUM 9.1 mg/dL (8.5-10.1); CREATININE 0.6 mg/dL (0.6-1.3); PHOSPHORUS 3.6 mg/dL (2.5-4.9); POTASSIUM 4.7 mmol/L (3.5-5.1)
--- NOTE | 2020-08-22 12:00 | NUR ---
PATEINT'S NEEDS ATTENDED. KEPT COMFORTABLE.
--- NOTE | 2020-08-22 15:16 | NUR ---
LAYNE CATHETER WITH URINE OUTPUT OF 2500ML. BAG EMPTIED.
[2020-08-22] MEDS: RIVAROXABAN 10 MG TABLET PO SCH (16:42)
--- NOTE | 2020-08-22 17:27 | NUR ---
GOT BED 322-1 IN 10 MINS.
--- NOTE | 2020-08-22 18:13 | NUR ---
REPORT GIVEN TO KIARA RICARDO FOR DEVANTE.
--- NOTE | 2020-08-22 18:35 | NUR ---
RECEIVED REPORT FROM ER NURSE FOR CONTINUITY OF CARE.
--- NOTE | 2020-08-22 18:45 | NUR ---
RECEIVED PATIENT FROM ER VIA GURNEY. ORIENTED PATIENT TO PATIENT'S ROOM. SAFETY MEASURES ARE APPLIED BED IS IN LOWEST POSITION SIDE RAILS UPX 2 CALL LIGHT WITHIN REACH WILL CONTINUE TO MONITOR.
--- NOTE | 2020-08-22 18:45 | NUR ---
PATIENT TRANSFERRED TO [facility] IN STABLE CONDITION. NO DISTRESS NOTED.
--- NOTE | 2020-08-22 19:00 | NUR ---
GAVE REPORT TO BRUNO RICARDO FOR CONTINUITY OF CARE.
[2020-08-22 19:30] VITALS: BP 113/54
--- NOTE | 2020-08-22 19:40 | NUR ---
MS RN OPENING NOTES RECEIVED PATIENT IN BED ALERT AND ORIENTED X 3. VERBALLY RESPONSIVE AND ABLE TO FOLLOW DIRECTIONS. BREATHING REGULAR AND UNLABORED ON OXYGEN AT 3L/MIN VIA NASAL CANNULA. LEFT FOREARM G20 IV LINE INTACT AND PATENT, FLUSHING WELL. NO S/S OF PAIN/DISCOMFORT NOTED AT THIS TIME. BED LOW AND LOCKED ON SEMI FOWLERS POSITION. CALL LIGHT IN REACH. WILL CONTINUE TO MONITOR.
[2020-08-22] MEDS: TRAZODONE 50 MG TABLET PO SCH (21:57)
--- NOTE | 2020-08-23 06:50 | NUR ---
ELECTRICIAN MACHINE SHOP CLOSING NOTES PATIENT IN BED, ALERT AND ORIENTED X 2-3. AFEBRILE WITH NO S/S OF DISTRESS OBSERVED. WILL ENDORSE TO MORNING SHIFT FOR CONTINUITY OF CARE.
[2020-08-23 06:56] LABS: CALCIUM, SERUM 8.9 mg/dL (8.5-10.1); CREATININE 0.6 mg/dL (0.6-1.3); MAGNESIUM 1.8 mg/dL (1.8-2.4); PHOSPHORUS 3.9 mg/dL (2.5-4.9); POTASSIUM 3.5 mmol/L (3.5-5.1)
[2020-08-23 07:03] LABS: BASOPHILS # (AUTO) 0.1 /CMM (0.0-0.2); BASOPHILS % (AUTO) 1.1 % (0.0-2.0); EOSINOPHILS % (AUTO) 0.1 % (0.0-6.0); HEMATOCRIT 35 % (33-45); HEMOGLOBIN 10.7 g/dL (11.5-14.8); LYMPHOCYTES # (AUTO) 1.7 /CMM (0.8-4.8); MEAN CORPUSCULAR HGB CONC 31 g/dl (31.0-36.0); MEAN CORPUSCULAR VOLUME 83 fL (82-100); MONOCYTES # (AUTO) 1.2 /CMM (0.1-1.30); MONOCYTES % (AUTO) 18.8 % (2.0-12.0); NEUTROPHILS # (AUTO) 3.4 /CMM (1.8-8.9); PLATELET COUNT (AUTO) 143 /CMM (150-450); RED BLOOD CELL COUNT(AUTO) 4.17 MIL/uL (4.0-5.2); WHITE BLOOD COUNT (AUTO) 6.5 K/uL (4.3-11.0)
--- NOTE | 2020-08-23 07:39 | NUR ---
GUARD SERGEANT OPENING NOTES RECEIVED PATIENT IN BED, AWAKE, A/O X3. PATIENT ON OXYGEN THERAPY AT 3 LPM VIA NASAL CANULA; NO DISTRESS NOTED AT THIS TIME, NO SOB. TELE MONITOR WITH A CURRENT READING OF SINUS RHYTHMS 86. NO COMPLAINS OF PAIN AT THIS TIME. LFA IV ACCESS G #22 PRESENT AND INTACT. LAYNE CATH PRESENT AND IN PLACE. SAFETY PRECAUTIONS IN PLACE; BED IN LOW POSITION AND LOCKED, RAILS UP X2, CALL LIGHT WITHIN REACH. WILL CONTINUE TO MONITOR PATIENT.
--- NOTE | 2020-08-23 07:58 | NUR ---
CHIEF CONSOLE OPERATOR NOTES RECEIVED CALL FROM LAB REGARDING CRITICAL CO2 LAB OF 42. NO MD LIST AVAILABLE YET SO RESULT REPORTED TO ADMITTING MD AND CHARGE NURSE.
[2020-08-23 08:00] VITALS: BP 175/72
[2020-08-23] MEDS: DOXYCYCLINE HYCLATE (100 MG) 100 MG TABLET PO SCH (08:29)
[2020-08-23] MEDS: ASCORBIC ACID 500 MG TABLET PO SCH (08:29)
[2020-08-23] MEDS: BACLOFEN (10 MG) 10 MG TABLET PO SCH ×3 (08:29→17:32)
[2020-08-23] MEDS: SERTRALINE HCL 50 MG TABLET PO SCH (08:29)
[2020-08-23] MEDS: SUCRALFATE 1 G TABLET PO SCH ×4 (08:29→23:09)
[2020-08-23] MEDS: PANTOPRAZOLE 40 MG TABLET.DR PO SCH ×2 (08:29→17:31)
[2020-08-23] MEDS: SPIRONOLACTONE 25 MG TABLET PO SCH (08:29)
[2020-08-23] MEDS: GABAPENTIN 300 MG CAPSULE PO SCH ×3 (08:29→17:30)
[2020-08-23] MEDS: ALPRAZOLAM 1 MG TABLET PO SCH (08:29)
[2020-08-23] MEDS: PROPRANOLOL HCL 10 MG TABLET PO SCH ×2 (08:30→17:31)
[2020-08-23] MEDS: FOLIC ACID 1 MG TABLET PO SCH (08:30)
[2020-08-23] MEDS: MONTELUKAST SODIUM (10MG) 10 MG TABLET PO SCH (08:30)
[2020-08-23] MEDS: FUROSEMIDE 40 MG/4 ML VIAL IV SCH ×2 (08:31→09:00)
[2020-08-23] MEDS: CALCIUM CARBONATE (1250) 500 MG TABLET PO SCH (08:32)
--- NOTE | 2020-08-23 08:56 | NUR ---
WOUND CARE CONSULT: PT PRESENTS WITH LEFT EAR LESION(TREATED BY HER DIRECTOR OF CLINICAL TRIALS), LEFT ABDOMEN OPEN BLISTER, SACRAL SCARRING, RASHES TO SKIN FOLDS AND LEFT FOOT WOUND, ALL PRESENT ON ADMISSION. RECOMMEND DPM CONSULT. DR NYE NOTIFIED OF CONSULT REQUEST. RECOMMENDATIONS MADE FOR SKIN PROTECTION. DISCUSSED WITH NURSING STAFF. PT IS ON DAMARI ISOFLEX LOW AIRLOSS BED. ROVERTO LYNN. IN AGREEMENT WITH PLAN OF CARE. Addendum: 08/23/20 at 0859 by WALTER CHIU WNDNU Amended: Links added.
[2020-08-23] MEDS: ANASTROZOLE 1 MG TABLET PO SCH (09:00)
[2020-08-23 09:25] LABS: BAND % (MANUAL) 2 % (0.0-5.0); LYMPHOCYTES % (MANUAL) 20 % (16-48); MONOCYTES % (MANUAL) 22 % (0-11.0); NEUTROPHILS % (MANUAL) 56 (42-76)
--- NOTE | 2020-08-23 09:54 | NUR ---
MS RN NOTES PATIENT ACCIDENTLY DISLODGED HER IV LINE; WAS NOT ABLE TO ADMINISTERED HER MORNING LASIX. AFTER MULTIPLE ATTEMPTS NOT ABLE TO GET A NEW LINE. MD AWARE. WAITING FOR MD APPROVAL FOR MIDLINE INSERTION.
[2020-08-23] MEDS ORDERED: BUMETANIDE (1 MG) 1 MG TABLET PO SCH (10:00)
[2020-08-23] MEDS ORDERED: LEVOFLOXACIN 500 MG /D5W 100ML 500 MG in PREMIX 1 EA IV SCH (10:30)
--- NOTE | 2020-08-23 10:35 | NUR ---
Water Pipe Installer consult requested by JULIEN Lopez on 08/20 regarding concerns of home safety. SW will follow-up regarding this patient.
[2020-08-23] MEDS: FLUTICASONE PROPIONATE 16 GM BOTTLE NS SCH (11:48)
[2020-08-23] MEDS: CLOTRIMAZOLE 1% 15 GM TUBE TP SCH ×2 (11:48→16:48)
[2020-08-23 12:00] VITALS: BP 128/71
[2020-08-23 13:30] LABS: ABG BASE EXCESS 14.1 mmol/L; ABG OXYGEN SATURATION 91.2 % (92.0-98.5); ABG PCO2 71.9 mmHg (35.0-45.0); ABG PH 7.388 (7.350-7.450); ABG PO2 66.3 mmHg (75.0-100.0); AaDO2 77.7 mmHg; COHb 1.3 % (0.5-1.5); MetHb 0.3 % (0.0-1.5); O2Hb 89.7 % (94.0-97.0); SITE, ABG Left Radial; VENT MODE, BG 3L NC
[2020-08-23] MEDS ORDERED: LEVOFLOXACIN (250MG) 250 MG TABLET PO SCH (14:00)
[2020-08-23] MEDS: ALBUTEROL HALF STRENGTH 1.25 MG/3 ML VIAL.NEB NEB SCH ×3 (15:22→23:20)
[2020-08-23] MEDS: IPRATROPIUM NEB FS 0.5 MG/2.5 ML AMPUL.NEB NEB SCH ×3 (15:22→23:20)
[2020-08-23] MEDS: methylPREDNISolone SOD SUCC 125 MG/2ML VIAL IV SCH ×2 (15:57→17:29)
[2020-08-23 16:00] VITALS: BP 119/59
--- NOTE | 2020-08-23 16:15 | NUR ---
Social Service consult [facility] SHOE CUTTER for Home Safety. The pt. is a 70-year-old Female BIBRA for SOB per EMR. The pt. comes from Home [[address] [place], [address]] where she lives with her sister, Barb, who is visiting from [place], per Ramona. Pt. has [facility] [phone]. SW called the pt.s sister, Ramona [phone] who stated that pt. has In-Home supportive services and home health and has Oxygen at home. Ramona stated that the pt. sister, Barb has been staying with pt. to help care for her. SW followed up and spoke with case management, Ralph who stated that the delivered Oxygen for pt. at home last discharge 08/19/2020. The pt. is awake in bed and agreeable to meeting with SW. Pt. is alert and oriented x 3 and makes appropriate eye contact. SW has previously interviewed this pt. in a previous admission. Pt. has Hx. of Breast Cancer and receiving chemotherapy per, Ramona. SW observed that pt. has lost a lot of weight since last assessed by SW. Pt.'s mood is depressed. Pt. denies SI/HI. Pt. denies hallucinations. Pt. has fair insight & fair judgement. Pt. informed SW that they have a caregiver named Fer. Pt. unable to provide Anthony phone number at this time. Pt. stated that she has home health services and was granted more hours recently as her needs have increased. Pt. stated they would like to be discharged to home [[address] [place], [address]]. ANCA explored if pt. requires additional resources. Pt. stated no. SW placed the following resources in pt.s discharge packet: CANCER RESOURCES: [employer] Cancer [employer] www.cancer.org; Cancer Support Community www.CancerSupportVvsb.org: CancerCare www.cancercare.org; Medic Vision Brain Technologies [facility] Cancer Support Center www.[facility].org. CONSERVATORSHIP & GUARDIANSHIP AAR ; [facility] Legal Services ; Center for Health Care Rights ; Eldercare Information and Referral ; Neonatologist Foundation [facility]: [facility] Bar Referral Service [facility] Legal Services Office of the Public Guardian [place] HELP AT HOME CAREGIVER SUPPORT In Home Support Services (Must have Medi-Rodrick to be eligible) *Ask for a list of agencies that provide services to assist with care in the home. Local Senior Centers also have listings of care providers. HOME SAFETY MODIFICATIONS AND EQUIPMENT Senior centers have additional referrals.RI Playcez and Community Investment Dept. Handyworker Program (low income) or Visit http://hcidla.summit pacific medical centerCommunity Energy.org/jcp-rtxchl-xi National Seating and Mobility and/or ; Forever Active www.22nd Century GroupverGoodman Networks.Cyren Call Communications; Stay Home Safe www.Stayhomesafe.com Homebound/Mental Health Services :[address], [address] [place] [address] (Provide in-home mental services to people who are incapable of leaving their homes) Community Guidance Center: [address] [place] [address] (Assist with solving problem marital difficulties, separation & divorce, aging parents, & grief, chronic & terminal illness) Family Counseling Center: [address] [place] [address] (Deal with loss & grief, anxiety, marital difficulties) SW will be available as needed. Addendum: 08/24/20 at 1340 by RADHA MARCH also provide the following resources: LIFE ALERT RESPONSE SYSTEM: State Services [phone] Life Alert 128-858-4872 www.[facility] Life Station 503-460-4804 wwwWorth Foundation Fund Safe Return 727-449-0562 www.MeMed.or/safereturn Cell Phones for Seniors www.Contactually MEALS AND FOOD PROGRAMS: [place] Meals on Wheels [phone] [place] Meals on Wheels [phone] [facility] [phone] [place] to the Homebound [phone] [place] to the Homebound [phone] [facility] to the Homebound [phone] [facility] to the Homebound [phone] [facility] [place] [phone] [facility] [phone] ONE Generation [phone] [facility] [phone] [facility] [phone] Meals on Wheels [phone] For all ages: $6.85/ meal w side. Delivered M-F from 10 am-1pm. Application and payment is done over the phone. Frozen meals available for weekends. Emergency Food Coalition [phone] [facility] Superintendent Refuse Disposal [phone] [facility] [phone] [facility]- Brown bag lunches [phone] [facility] [phone] MEAL/GROCERY DELIVERY PROGRAMS [place] Senior Gourmet Meals [phone]- [facility] [phone]- [facility] Magic Kitchen [phone] Moms Meals [phone] (ask Ruby for Discount Select grocery stores may provide delivery. MEDICAL INSURANCE SUPPORT SERVICES Center for Health Care Rights [phone] Health Insurance Counseling/Advocacy Programs (HICAP)-Must have Medicare. Offers counseling for Medi-Rodrick eligibility [phone] [facility] Superintendent Refuse Disposal [phone] www.[facility].ca.gov Medicare [phone] www.socialsecurity.org Social Security [phone] MEALS AND FOOD PROGRAMS: [place] Meals on Wheels [phone] [place] Meals on Wheels [phone] [facility] [phone] [place] to the Homebound [phone] [place] to the Homebound [phone] [facility] to the Homebound [phone] [facility] to the Homebound [phone] [facility] [phone] [facility] [phone] ONE Generation [phone] [facility] [phone] [facility] [phone] Meals on Wheels [phone] For all ages: $6.85/ meal w side. Delivered M-F from 10 am-1pm. Application and payment is done over the phone. Frozen meals available for weekends. Emergency Food Coalsoutheast [facility] [phone] [facility] Superintendent Refuse Disposal [phone] [facility] [phone] [facility]- Brown bag lunches [phone] [facility] [phone] MEAL/GROCERY DELIVERY PROGRAMS Martbasims Senior Gourmet Meals [phone]- [facility] [phone]- [facility] Magic Kitchen [phone] Moms Meals [phone] (ask Ruby for Discount Select grocery stores may provide delivery. MEDICAL INSURANCE SUPPORT SERVICES Center for Health Care Rights [phone] Health Insurance Counseling/Advocacy Programs (HICAP)-Must have Medicare. Offers counseling for Medi-Rodrick eligibility [phone] Department of Public Superintendent Refuse Disposal [phone] www.[facility].ca.gov Medicare [phone] www.socialsecurity.org Social Security [phone]
[2020-08-23] MEDS: VANCOMYCIN 1 GM in IV D5W 250 ML IV SCH (17:04)
[2020-08-23] MEDS: RIVAROXABAN 10 MG TABLET PO SCH (17:34)
[2020-08-23] MEDS: PIPERACILLIN /TAZOBACTAM 4.5 G in IV D5W 50 ML IV SCH ×2 (18:19→23:42)
--- NOTE | 2020-08-23 18:44 | NUR ---
TRACTOR DRIVER TEAMSTER CLOSING NOTES PATIENT REMAINS IN BED, AWAKE, A/O X3. PATIENT ON BIPAP AT THIS TIME; NO DISTRESS NOTED AT THIS TIME, NO SOB. NO COMPLAINS OF PAIN DURING THE DAY. GABRIEL MIDLINE PRESENT AND INTACT. LAYNE CATH PRESENT AND IN PLACE WITH A DAILY OUTPUT OF 1600MLS. ALL NEEDS ATTENDED THROUGHOUT THE DAY. SAFETY PRECAUTIONS IN PLACE; BED IN LOW POSITION AND LOCKED, RAILS UP X2, CALL LIGHT WITHIN REACH. WILL ENDORSE TO EMAIL MARKETING ASSISTANT NURSE.
--- NOTE | 2020-08-23 19:50 | NUR ---
TELERN AWAKENED WHEN SEEN BY RT. WANTED BIPAP TO BE TAKEN OFF. STATED HAS BEEN ON BIPAP FOR AWHILE AND WANTED TO EAT DINNER. OFF BIPAP FOR NOW WAS PLACED BY RT ON 5L POST HHN TREATMENT. WILL NEED TO TITRATE DOWN TO 2 TO 3 L VIA NC IN FEW MINUTES
--- NOTE | 2020-08-23 20:30 | NUR ---
TELERN ASSISTED LATE DINNER ATE WELL. NO SOB, 93 TO 94% ON 3L VIA NC. CLOSELY MONITORED.
[2020-08-23 21:35] VITALS: BP 156/65
[2020-08-23] MEDS: TRAZODONE 50 MG TABLET PO SCH (23:10)
--- NOTE | 2020-08-24 00:55 | NUR ---
TLERN VERBALIZES HEADACHE, ADMINISTERED 650 MG OF TYLENOL. REPOSITIONED FOR COMFORT.
[2020-08-24] MEDS: ACETAMINOPHEN 325 MG TABLET PO PRN (00:56)
[2020-08-24 01:31] VITALS: BP 109/45
[2020-08-24] MEDS: IPRATROPIUM NEB FS 0.5 MG/2.5 ML AMPUL.NEB NEB SCH ×6 (03:21→23:12)
[2020-08-24] MEDS: ALBUTEROL HALF STRENGTH 1.25 MG/3 ML VIAL.NEB NEB SCH ×6 (03:21→23:12)
[2020-08-24 05:15] VITALS: BP 95/59
[2020-08-24 05:23] LABS: ABG BASE EXCESS 14.5 mmol/L; ABG OXYGEN SATURATION 88.5 % (92.0-98.5); ABG PCO2 61.7 mmHg (35.0-45.0); ABG PH 7.441 (7.350-7.450); ABG PO2 58.3 mmHg (75.0-100.0); AaDO2 97.7 mmHg; COHb 1.1 % (0.5-1.5); MetHb 0.3 % (0.0-1.5); O2Hb 87.3 % (94.0-97.0); SITE, ABG Right Radial; VENT MODE, BG 3L NC
[2020-08-24] MEDS: VANCOMYCIN 1 GM in IV D5W 250 ML IV SCH ×2 (05:32→16:39)
[2020-08-24] MEDS: PIPERACILLIN /TAZOBACTAM 4.5 G in IV D5W 50 ML IV SCH ×4 (06:42→23:41)
[2020-08-24 06:52] LABS: BASOPHILS % (AUTO) 0.4 % (0.0-2.0); HEMATOCRIT 33 % (33-45); HEMOGLOBIN 10.7 g/dL (11.5-14.8); LYMPHOCYTES # (AUTO) 0.7 /CMM (0.8-4.8); MEAN CORPUSCULAR HGB CONC 32 g/dl (31.0-36.0); MEAN CORPUSCULAR VOLUME 83 fL (82-100); MONOCYTES # (AUTO) 0.4 /CMM (0.1-1.30); MONOCYTES % (AUTO) 8.7 % (2.0-12.0); NEUTROPHILS # (AUTO) 3.1 /CMM (1.8-8.9); NEUTROPHILS % (AUTO) 73.9 % (43.0-81.0); PLATELET COUNT (AUTO) 106 /CMM (150-450); RED BLOOD CELL COUNT(AUTO) 4.04 MIL/uL (4.0-5.2); WHITE BLOOD COUNT (AUTO) 4.2 K/uL (4.3-11.0)
[2020-08-24 07:58] LABS: CALCIUM, SERUM 8.3 mg/dL (8.5-10.1); CREATININE 0.8 mg/dL (0.6-1.3); MAGNESIUM 1.6 mg/dL (1.8-2.4); PHOSPHORUS 3.2 mg/dL (2.5-4.9); POTASSIUM 3.6 mmol/L (3.5-5.1)
[2020-08-24 08:00] VITALS: BP 120/74
--- NOTE | 2020-08-24 08:00 | NUR ---
RN Opening note Received patient in bed, AO x 3 able to responds all stimuli, Pt does no appears pain or distress. Skin is warm to touch keep clean/dry intact IV site, respiratory even and unlabored with oxygen at 3LPM O2sat 98%. Kept locked bed with elevated HOB for aspiration precaution and ensure airway and lowest bed foe safety. Call light within reach, will continue to monitor.
[2020-08-24] MEDS: Magnesium 1GM/D5W 100ML PREMIX 100 ML IV SCH ×2 (10:01→11:25)
[2020-08-24] MEDS: methylPREDNISolone SOD SUCC 125 MG/2ML VIAL IV SCH ×2 (10:03→16:45)
[2020-08-24] MEDS: MONTELUKAST SODIUM (10MG) 10 MG TABLET PO SCH (10:03)
[2020-08-24] MEDS: SUCRALFATE 1 G TABLET PO SCH ×4 (10:04→23:40)
[2020-08-24] MEDS: ASCORBIC ACID 500 MG TABLET PO SCH (10:04)
[2020-08-24] MEDS: SERTRALINE HCL 50 MG TABLET PO SCH (10:04)
[2020-08-24] MEDS: SPIRONOLACTONE 25 MG TABLET PO SCH (10:04)
[2020-08-24] MEDS: GABAPENTIN 300 MG CAPSULE PO SCH ×3 (10:04→16:45)
[2020-08-24] MEDS: BACLOFEN (10 MG) 10 MG TABLET PO SCH ×3 (10:04→16:45)
[2020-08-24] MEDS: PANTOPRAZOLE 40 MG TABLET.DR PO SCH ×2 (10:04→16:46)
[2020-08-24] MEDS: FOLIC ACID 1 MG TABLET PO SCH (10:04)
[2020-08-24] MEDS: PROPRANOLOL HCL 10 MG TABLET PO SCH ×2 (10:08→16:47)
[2020-08-24] MEDS: CALCIUM CARBONATE (1250) 500 MG TABLET PO SCH (10:08)
[2020-08-24] MEDS: FLUTICASONE PROPIONATE 16 GM BOTTLE NS SCH (10:10)
[2020-08-24] MEDS: ANASTROZOLE 1 MG TABLET PO SCH (10:10)
[2020-08-24] MEDS: CLOTRIMAZOLE 1% 15 GM TUBE TP SCH ×2 (10:11→17:29)
[2020-08-24 11:22] LABS: ABG BASE EXCESS 17.6 mmol/L; ABG OXYGEN SATURATION 90.6 % (92.0-98.5); ABG PCO2 54.3 mmHg (35.0-45.0); ABG PH 7.517 (7.350-7.450); ABG PO2 58.8 mmHg (75.0-100.0); AaDO2 91.3 mmHg; COHb 1.2 % (0.5-1.5); MetHb 0.3 % (0.0-1.5); O2Hb 89.2 % (94.0-97.0); SITE, ABG Left Radial; VENT MODE, BG Nasal Cannula
[2020-08-24] MEDS: FUROSEMIDE 20 MG/2 ML VIAL IV SCH ×2 (13:12→16:45)
[2020-08-24] MEDS: RIVAROXABAN 10 MG TABLET PO SCH (16:46)
--- NOTE | 2020-08-24 18:02 | NUR ---
RN Closing note Patient in bed eating dinner. Respiratory even and unlabored with oxygen at 3LPM via N/C O2sat 98%. Skin is warm to touch keep clean/dry, intact IV site. Kept locked bed with elevated HOB for ensure airway and aspiration precaution and lowest bed for safety. Call light within reach will endorse mini shifter.
--- NOTE | 2020-08-24 19:40 | NUR ---
TELERN FULLY AWAKE, LESS SOB. REFUSED STILL TO RESUME BIPAP. EAGER TO GO HOME WITH SISTER. ALL NEEDS ATTENDED.
[2020-08-24 20:00] VITALS: BP 115/52
[2020-08-24] MEDS: ONDANSETRON HCL/PF 4 MG/2 ML VIAL IVP PRN (21:54)
--- NOTE | 2020-08-24 21:54 | NUR ---
TELERN FULLY AWAKE, NAUSEATED WITH SCANTY EMESIS MOSTLY SALIVA. ZOFRAN 4MG IVP ADMINISTERED. NOTHING BY MOUTH FOR NOW.V/S STABLE
[2020-08-24] MEDS: TRAZODONE 50 MG TABLET PO SCH (23:40)
[2020-08-25] VITALS (7 sets, daily range): BP systolic 102–128; BP diastolic 47–68
--- NOTE | 2020-08-25 02:35 | NUR ---
TELERN NO N/V. FELT BETTER. KEPT COMFORTABLE, CONTINUED MONITORING. CLOSELY WATCHED.
[2020-08-25] MEDS: ALBUTEROL HALF STRENGTH 1.25 MG/3 ML VIAL.NEB NEB SCH ×6 (03:56→23:44)
[2020-08-25] MEDS: IPRATROPIUM NEB FS 0.5 MG/2.5 ML AMPUL.NEB NEB SCH ×6 (03:56→23:44)
[2020-08-25 04:29] LABS: BASOPHILS % (AUTO) 0.6 % (0.0-2.0); HEMATOCRIT 36 % (33-45); HEMOGLOBIN 11.6 g/dL (11.5-14.8); LYMPHOCYTES % (AUTO) 11.3 % (20.0-44.0); MEAN CORPUSCULAR HGB CONC 32 g/dl (31.0-36.0); MEAN CORPUSCULAR VOLUME 82 fL (82-100); MONOCYTES # (AUTO) 0.7 /CMM (0.1-1.30); MONOCYTES % (AUTO) 8.6 % (2.0-12.0); NEUTROPHILS # (AUTO) 6.7 /CMM (1.8-8.9); NEUTROPHILS % (AUTO) 79.5 % (43.0-81.0); PLATELET COUNT (AUTO) 139 /CMM (150-450); RED BLOOD CELL COUNT(AUTO) 4.43 MIL/uL (4.0-5.2); WHITE BLOOD COUNT (AUTO) 8.5 K/uL (4.3-11.0)
[2020-08-25 04:37] LABS: CALCIUM, SERUM 8.3 mg/dL (8.5-10.1); CREATININE 0.8 mg/dL (0.6-1.3); MAGNESIUM 3.1 mg/dL (1.8-2.4); POTASSIUM 3.4 mmol/L (3.5-5.1)
[2020-08-25] MEDS: VANCOMYCIN 1 GM in IV D5W 250 ML IV SCH ×2 (05:00→18:10)
[2020-08-25] MEDS: ONDANSETRON HCL/PF 4 MG/2 ML VIAL IVP PRN ×2 (06:22→22:08)
[2020-08-25] MEDS: PIPERACILLIN /TAZOBACTAM 4.5 G in IV D5W 50 ML IV SCH ×4 (06:27→23:25)
--- NOTE | 2020-08-25 07:30 | NUR ---
TELE/RN OPENING NOTES RECEIVED PATIENT IN BED. A/O X3. AFEBRILE. DENIES ANY PAIN. IN NO APPARENT DISTRESS. ON O2 2L/MIN. L UPPER ARM MIDLINE. LAYNE CATHETER, PATENT, DRAINING WELL. SAFETY MEASURES APPLIED. BED IN LOWEST POSITION, LOCKED. SIDE RAILS UP X2. CALL LIGHT WITHIN REACH. WILL CONTINUE TO MONITOR.
[2020-08-25] MEDS: SUCRALFATE 1 G TABLET PO SCH ×4 (08:43→22:07)
[2020-08-25] MEDS: BACLOFEN (10 MG) 10 MG TABLET PO SCH ×3 (08:43→16:28)
[2020-08-25] MEDS: FOLIC ACID 1 MG TABLET PO SCH (08:44)
[2020-08-25] MEDS: GABAPENTIN 300 MG CAPSULE PO SCH ×3 (08:44→16:28)
[2020-08-25] MEDS: PROPRANOLOL HCL 10 MG TABLET PO SCH ×2 (08:44→16:27)
[2020-08-25] MEDS: ASCORBIC ACID 500 MG TABLET PO SCH (08:45)
[2020-08-25] MEDS: SERTRALINE HCL 50 MG TABLET PO SCH (08:45)
[2020-08-25] MEDS: MONTELUKAST SODIUM (10MG) 10 MG TABLET PO SCH (08:45)
[2020-08-25] MEDS: FUROSEMIDE 20 MG/2 ML VIAL IV SCH ×2 (08:45→17:02)
[2020-08-25] MEDS: PANTOPRAZOLE 40 MG TABLET.DR PO SCH ×2 (08:45→16:28)
[2020-08-25] MEDS: methylPREDNISolone SOD SUCC 125 MG/2ML VIAL IV SCH ×2 (08:47→17:02)
[2020-08-25] MEDS: SPIRONOLACTONE 25 MG TABLET PO SCH (08:54)
[2020-08-25] MEDS: ANASTROZOLE 1 MG TABLET PO SCH (08:58)
[2020-08-25] MEDS: FLUTICASONE PROPIONATE 16 GM BOTTLE NS SCH (08:58)
[2020-08-25] MEDS: CLOTRIMAZOLE 1% 15 GM TUBE TP SCH ×2 (08:59→16:47)
[2020-08-25] MEDS: CALCIUM CARBONATE (1250) 500 MG TABLET PO SCH (09:50)
[2020-08-25] MEDS ORDERED: POTASSIUM CHLORIDE 20 MEQ TAB.PRT.SR PO SCH (10:00)
--- NOTE | 2020-08-25 15:30 | NUR ---
TELE/RN NOTES PATIENT HAS BEEN COUGING BLOOD, COFFEE GROUND EMESIS. INFORMED DR. KELLY WEBB ABOUT THE SITUATION. HE JUST SAID CONTINUE TO MONITOR THE PT'S CONDITION.
[2020-08-25] MEDS: RIVAROXABAN 10 MG TABLET PO SCH (16:28)
--- NOTE | 2020-08-25 18:04 | NUR ---
TELE/RN CLOSING NOTES PATIENT IN BED, ON SEMI FOWLERS POSITION. A/O X3. AFEBRILE. ON NC O2 L/MIN. L UPPER ARM MIDLINE. STILL COUGHING BLOOD, COFFEE GROUND. ONGOING VANCOMYCIN. SAFETY PRECAUTIONS APPLIED. BED IN LOWEST POSITION LOCKED. SIDE RAILS UP X3. CALL LIGHT WITHIN REACH. WILL ENDORSE TO STEAM TRAIN DRIVER FOR DEVANTE.
[2020-08-25] MEDS: ACETAMINOPHEN 325 MG TABLET PO PRN (19:22)
[2020-08-25] MEDS: TRAZODONE 50 MG TABLET PO SCH (22:07)
[2020-08-26 00:39] VITALS: BP 121/78
[2020-08-26] MEDS: ALBUTEROL HALF STRENGTH 1.25 MG/3 ML VIAL.NEB NEB SCH ×6 (03:30→23:24)
[2020-08-26] MEDS: IPRATROPIUM NEB FS 0.5 MG/2.5 ML AMPUL.NEB NEB SCH ×6 (03:30→23:24)
[2020-08-26] MEDS: VANCOMYCIN 1 GM in IV D5W 250 ML IV SCH ×2 (04:23→16:50)
[2020-08-26] MEDS: PIPERACILLIN /TAZOBACTAM 4.5 G in IV D5W 50 ML IV SCH ×4 (05:02→23:30)
[2020-08-26 06:33] LABS: BASOPHILS % (AUTO) 0.2 % (0.0-2.0); HEMATOCRIT 37 % (33-45); HEMOGLOBIN 11.7 g/dL (11.5-14.8); LYMPHOCYTES # (AUTO) 1.4 /CMM (0.8-4.8); LYMPHOCYTES % (AUTO) 7.6 % (20.0-44.0); MEAN CORPUSCULAR HGB CONC 32 g/dl (31.0-36.0); MEAN CORPUSCULAR VOLUME 82 fL (82-100); MONOCYTES # (AUTO) 1.5 /CMM (0.1-1.30); MONOCYTES % (AUTO) 8.4 % (2.0-12.0); NEUTROPHILS # (AUTO) 15.1 /CMM (1.8-8.9); NEUTROPHILS % (AUTO) 83.8 % (43.0-81.0); PLATELET COUNT (AUTO) 179 /CMM (150-450)
[2020-08-26 07:00] LABS: CALCIUM, SERUM 8.7 mg/dL (8.5-10.1); POTASSIUM 3.2 mmol/L (3.5-5.1)
[2020-08-26 08:00] VITALS: BP 110/55
--- NOTE | 2020-08-26 08:01 | NUR ---
TUMBLING INSTRUCTOR NOTES ENDORSED TO AM NURSE. PT IN BED, RESTING COMFORTABLE. PT CONTINUED TO HAVE BROWN AND BLOOD TINGED EMESIS THROUGHOUT THE NIGHT. NO ACUTE EVENTS OVERNIGHT.
[2020-08-26] MEDS: SPIRONOLACTONE 25 MG TABLET PO SCH (09:00)
[2020-08-26] MEDS: PROPRANOLOL HCL 10 MG TABLET PO SCH ×2 (09:00→16:53)
[2020-08-26 09:37] LABS: ABG BASE EXCESS 19.4 mmol/L; ABG OXYGEN SATURATION 88.5 % (92.0-98.5); ABG PCO2 58.8 mmHg (35.0-45.0); ABG PH 7.507 (7.350-7.450); ABG PO2 58.9 mmHg (75.0-100.0); AaDO2 100.5 mmHg; COHb 1.4 % (0.5-1.5); MetHb 0.3 % (0.0-1.5); SITE, ABG Right Radial; VENT MODE, BG 3L NC
[2020-08-26] MEDS: methylPREDNISolone SOD SUCC 125 MG/2ML VIAL IV SCH (10:30)
[2020-08-26] MEDS: SUCRALFATE 1 G TABLET PO SCH ×4 (10:30→20:26)
[2020-08-26] MEDS: GABAPENTIN 300 MG CAPSULE PO SCH ×3 (10:31→16:53)
[2020-08-26] MEDS: CALCIUM CARBONATE (1250) 500 MG TABLET PO SCH (10:31)
[2020-08-26] MEDS: FOLIC ACID 1 MG TABLET PO SCH (10:31)
[2020-08-26] MEDS: MONTELUKAST SODIUM (10MG) 10 MG TABLET PO SCH (10:31)
[2020-08-26] MEDS: PANTOPRAZOLE 40 MG TABLET.DR PO SCH ×2 (10:31→16:53)
[2020-08-26] MEDS: ASCORBIC ACID 500 MG TABLET PO SCH (10:31)
[2020-08-26] MEDS: SERTRALINE HCL 50 MG TABLET PO SCH (10:31)
[2020-08-26] MEDS: FUROSEMIDE 20 MG/2 ML VIAL IV SCH (10:31)
[2020-08-26] MEDS: BACLOFEN (10 MG) 10 MG TABLET PO SCH ×3 (10:32→16:53)
[2020-08-26] MEDS: ANASTROZOLE 1 MG TABLET PO SCH (10:35)
[2020-08-26] MEDS: FLUTICASONE PROPIONATE 16 GM BOTTLE NS SCH (10:35)
[2020-08-26] MEDS: CLOTRIMAZOLE 1% 15 GM TUBE TP SCH ×2 (10:36→17:01)
[2020-08-26 12:00] VITALS: BP 128/63
[2020-08-26] MEDS ORDERED: POTASSIUM CHLORIDE 20 MEQ TAB.PRT.SR PO ONE (12:30)
--- NOTE | 2020-08-26 13:20 | NUR ---
RECEIVED REPORT FOR CONTINUITY OF CARE FROM [facility] MERCEDES.
[2020-08-26] MEDS: acetaZOLAMIDE 250 MG TABLET PO SCH (13:30)
[2020-08-26 15:31] LABS: BILIRUBIN,URINE NEGATIVE (NEGATIVE); COLOR,URINE YELLOW (YELLOW); LEUKOCYTE ESTERASE ,URINE MODERATE (NEGATIVE); NITRITE, URINE NEGATIVE (NEGATIVE); PROTEIN,URINE NEGATIVE (NEGATIVE); UGLUCOSE NEGATIVE (NEGATIVE); UROBILINOGEN,URINE 0.2 EU/dL (0.2)
[2020-08-26 16:00] VITALS: BP 129/64
[2020-08-26 16:54] LABS: BACTERIA,URINE RARE /HPF (None Seen); SQUAMOUS EPITHELIAL CELL,UR 0-2 /HPF (None Seen); YEAST,URINE Many /HPF (None Seen)
--- NOTE | 2020-08-26 19:00 | NUR ---
rn telemetry notes received patient in bed awake alert and oriented x 3 able to make needs known on 3 lv ia nc tolerating well, on info specialist sr 92, left upper arm midline intact and patent,remains comfortable at this time, will continue to monitor bed alarm in place ,good intact and draining, all needs attended will continue to monitor.
--- NOTE | 2020-08-26 19:44 | NUR ---
SPECIAL CRIMES INVESTIGATOR CLOSING NOTES PATIENT IS A/O X 3 ON 3L OF NASAL CANNULA NO SIGNS OF DISTRESS. LAYNE CATH INTACT. L UA MIDLINE INTACT. NO COMPLAIN OF PAIN AT THIS TIME. PATIENT KEPT CLEAN AND DRY. ALL NEEDS, CARE, TREATMENT, AND MEDICATIONS WERE ADMINISTERED ANTICIPATED PER ORDER. SAFETY MEASURES ARE APPLIED, BED IS IN LOW POSITION SIDE RAILS UP X 2. CALL LIGHT WITHIN REACH WILL ENDORSE TO THE SUPERVISOR EDGING NURSE.
[2020-08-26 20:00] VITALS: BP 102/46
[2020-08-26] MEDS: ACETAMINOPHEN 325 MG TABLET PO PRN (20:26)
--- NOTE | 2020-08-26 20:26 | NUR ---
rn ms notes tylenol prn given requested by pt for back pain
[2020-08-26] MEDS: TRAZODONE 50 MG TABLET PO SCH (21:00)
[2020-08-27] VITALS: BP 124/50
--- NOTE | 2020-08-27 02:03 | NUR ---
refused rt tx and bipap
[2020-08-27] MEDS: ALBUTEROL HALF STRENGTH 1.25 MG/3 ML VIAL.NEB NEB SCH ×4 (03:56→15:06)
[2020-08-27] MEDS: IPRATROPIUM NEB FS 0.5 MG/2.5 ML AMPUL.NEB NEB SCH ×4 (03:56→15:06)
[2020-08-27 04:32] LABS: BASOPHILS % (AUTO) 0.1 % (0.0-2.0); HEMATOCRIT 35 % (33-45); HEMOGLOBIN 10.9 g/dL (11.5-14.8); LYMPHOCYTES # (AUTO) 1.4 /CMM (0.8-4.8); LYMPHOCYTES % (AUTO) 7.2 % (20.0-44.0); MEAN CORPUSCULAR HGB CONC 31 g/dl (31.0-36.0); MEAN CORPUSCULAR VOLUME 82 fL (82-100); MONOCYTES # (AUTO) 1.2 /CMM (0.1-1.30); NEUTROPHILS # (AUTO) 17.2 /CMM (1.8-8.9); NEUTROPHILS % (AUTO) 86.7 % (43.0-81.0); PLATELET COUNT (AUTO) 141 /CMM (150-450); RED BLOOD CELL COUNT(AUTO) 4.23 MIL/uL (4.0-5.2); WHITE BLOOD COUNT (AUTO) 19.9 K/uL (4.3-11.0)
[2020-08-27 04:37] LABS: CALCIUM, SERUM 8.8 mg/dL (8.5-10.1); CREATININE 1.1 mg/dL (0.6-1.3); POTASSIUM 3.2 mmol/L (3.5-5.1)
[2020-08-27] MEDS: VANCOMYCIN 1 GM in IV D5W 250 ML IV SCH (04:49)
--- NOTE | 2020-08-27 04:49 | NUR ---
vancomycin iv held vanco. trough is 26
[2020-08-27] MEDS: PIPERACILLIN /TAZOBACTAM 4.5 G in IV D5W 50 ML IV SCH ×3 (05:15→17:08)
[2020-08-27] MEDS ORDERED: POTASSIUM CHLORIDE 20 MEQ TAB.PRT.SR PO ONE (06:00)
--- NOTE | 2020-08-27 07:15 | NUR ---
rn utilization management um closing notes patient in bed awake alert and oriented x 3 able to make needs known on 3 l via nc tolerating well, on mapping supervisor sr 64, left upper arm midline intact and patent,remains comfortable at this time, will continue to monitor bed alarm in place ,good intact and draining 1600 output, all needs attended will continue to monitor and endorse to next shift, patient refused to be changed despite education.remained stable throughout shift.
--- NOTE | 2020-08-27 07:20 | NUR ---
telephone operator opening notes Patient is in bed, awake and verbally responsive. alert and oriented x 3 able to make needs known. breathing even and unlabored, on 3l o2 via nc, no sob nor respiratory distress. on tele monitor, reading of sr, hr in the mid 60's, no cardiac distress noted. left upper arm midline intact and patent,. good is intact and in place, draining urine of yellow color. safety measures in place. will continue to monitor.
[2020-08-27] MEDS ORDERED: ACET250T9 PO (07:53)
[2020-08-27 08:00] VITALS: BP 97/64
[2020-08-27] MEDS: ACETAMINOPHEN 325 MG TABLET PO PRN (08:29)
[2020-08-27] MEDS: SUCRALFATE 1 G TABLET PO SCH ×3 (09:22→16:54)
[2020-08-27] MEDS: MONTELUKAST SODIUM (10MG) 10 MG TABLET PO SCH (09:22)
[2020-08-27] MEDS: PANTOPRAZOLE 40 MG TABLET.DR PO SCH ×2 (09:22→16:54)
[2020-08-27] MEDS: acetaZOLAMIDE 250 MG TABLET PO SCH (09:23)
[2020-08-27] MEDS: SERTRALINE HCL 50 MG TABLET PO SCH (09:23)
[2020-08-27] MEDS: SPIRONOLACTONE 25 MG TABLET PO SCH (09:23)
[2020-08-27] MEDS: BACLOFEN (10 MG) 10 MG TABLET PO SCH ×3 (09:23→16:54)
[2020-08-27] MEDS: GABAPENTIN 300 MG CAPSULE PO SCH ×3 (09:23→16:54)
[2020-08-27] MEDS: CALCIUM CARBONATE (1250) 500 MG TABLET PO SCH (09:23)
[2020-08-27] MEDS: ASCORBIC ACID 500 MG TABLET PO SCH (09:23)
[2020-08-27] MEDS: FOLIC ACID 1 MG TABLET PO SCH (09:23)
[2020-08-27] MEDS: FLUTICASONE PROPIONATE 16 GM BOTTLE NS SCH (09:24)
[2020-08-27] MEDS: PROPRANOLOL HCL 10 MG TABLET PO SCH ×2 (09:24→16:54)
[2020-08-27] MEDS: ANASTROZOLE 1 MG TABLET PO SCH (09:25)
[2020-08-27] MEDS: CLOTRIMAZOLE 1% 15 GM TUBE TP SCH ×2 (09:25→16:54)
[2020-08-27 12:00] VITALS: BP 100/55
--- NOTE | 2020-08-27 16:00 | NUR ---
CREDIT AND COLLECTION MANAGER NOTES PATIENT WAS SEEN BY DR. WEBB TODAY W/ ORDER FOR DISCHARGE TO HOME. COORDINATED W/ HALEIGH NICKERSONROUTER SETTER. DISCHARGE INSTRUCTIONS AND EDUCATION PROVIDED TO PATIENT AND PATIENT'S SISTER ANNALISE ([phone]). BELONGINGS LIST AND DISCHARGE FORMS SIGNED BY PATIENT. ASKED IF PHOTOS OF SKIN ISSUES CAN BE TAKEN BUT PATIENT VERBALLY REFUSED, STATING, "I DON'T NEED THAT RIGHT NOW". RIGHT TO REFUSE RESPECTED. EXPLAINED IMPORTANCE BUT PATIENT STILL REFUSED. LAYNE CATH AND MIDLINE CATH REMOVED, PROCEDURE TOLERATED WELL BY PATIENT. PATIENT DID NOT WANT NAME ARMBAND TO BE REMOVED AND REQUESTED TO LEAVE IT WITH HER FOR NOW WHEN SHE GOES HOME. PATIENT WAS PICKED UP BY [facility] EMT'S VIA GURNEY. BEDSIDE REPORT GIVEN. CHARGE NURSE AND MD AWARE OF DISCHARGE.
--- NOTE | 2020-08-27 16:30 | NUR ---
MS/RN Prescription A to Pharmacy called to cancel prescription for diamox which had been send electronically. -A to Pharmacy
--- NOTE | 2020-08-27 16:34 | NUR ---
RN NOTES SPOKE W/ ANNALISE, PATIENT'S SISTER, AND INFORMED THAT ACETAZOLAMIDE MEDICATION HAS BEEN DISCONTINUED OF TODAY AND DOES NOT HAVE TO BE TAKEN BY PATIENT. ADVISED TO CALL SO FOR ANY QUESTIONS.
[2020-08-28] MEDS ORDERED: VANCOMYCIN 1 GM in IV D5W 250 ML IV SCH (09:00)
== END 2020-08-27 16:00 | disposition home health service (06) | DRG 177 ==
LOC: ER 02:30 → TRANSITION 06:40 → OBSVTOIN 06:40 → MED 08-22 17:31 → TELE 08-24 00:25
PROVIDERS: ADMIT Student in an Organized Health Care Education/Training Program; ATTEND Family Medicine
PROC: 05HY33Z Insertion of Infusion Device into Upper Vein, Percutaneous Approach (ICD-10-PCS; principal; 2020-08-25)
DX: J69.0 Pneumonitis due to inhalation of food and vomit (principal); J96.20 Acute and chronic respiratory failure, unspecified whether with hypoxia or hypercapnia; I50.33 Acute on chronic diastolic (congestive) heart failure; J96.22 Acute and chronic respiratory failure with hypercapnia; J96.21 Acute and chronic respiratory failure with hypoxia; I13.0 Hypertensive heart and chronic kidney disease with heart failure and stage 1 through stage 4 chronic kidney disease, or unspecified chronic kidney disease; D68.59 Other primary thrombophilia; E66.2 Morbid (severe) obesity with alveolar hypoventilation; E87.2 Acidosis; J98.11 Atelectasis; C79.9 Secondary malignant neoplasm of unspecified site; D72.829 Elevated white blood cell count, unspecified; E78.5 Hyperlipidemia, unspecified; N18.9 Chronic kidney disease, unspecified; J44.9 Chronic obstructive pulmonary disease, unspecified; Z87.11 Personal history of peptic ulcer disease; Z86.718 Personal history of other venous thrombosis and embolism; Z79.83 Long term (current) use of bisphosphonates; Z79.4 Long term (current) use of insulin; Z79.899 Other long term (current) drug therapy; M19.011 Primary osteoarthritis, right shoulder; F10.20 Alcohol dependence, uncomplicated; I70.0 Atherosclerosis of aorta; D72.819 Decreased white blood cell count, unspecified; Z72.0 Tobacco use; C50.919 Malignant neoplasm of unspecified site of unspecified female breast; Z79.01 Long term (current) use of anticoagulants; M21.612 Bunion of left foot; M21.611 Bunion of right foot; M20.42 Other hammer toe(s) (acquired), left foot; M20.41 Other hammer toe(s) (acquired), right foot; L89.616 Pressure-induced deep tissue damage of right heel; L89.896 Pressure-induced deep tissue damage of other site; K74.60 Unspecified cirrhosis of liver; G62.9 Polyneuropathy, unspecified
CPT/HCPCS: 36415; 36600; 71045-TC; 71250-TC; 80048-TC; 80053-TC; 80202-TC; 81001; 82550-TC; 82728-TC; 82803-TC; 82962-TC; 83605-TC; 83615-TC; 83735-TC; 83880; 84100-TC; 84484-TC; 85025-TC; 85378-TC; 85385-TC; 85730-TC; 86140-TC; 87040-TC; 87081-TC; 87086-TC; 93970-TC; 94660; 94799-TC; C9803; G0378; J1650; J1940; J2405; J2543; J2930; J3370; J3475; J3490; J7040; J7050; J7060

== ENCOUNTER → 2021-02-25 | Emergency (ER) | payer MEDICARE, OTHER ==
[~2021-02-25] VITALS: Ht 160 cm; Wt 102.1 kg
[~2021-02-25] MED LIST changes: +ACET250T9 PO; -ALEN70TA69 PO; +ALEN70TA80 PO; +DOXY-326 PO; -DOXY100C41 PO; -ERGO500014 PO; +ERGO500093 PO; +FLUT1BLS INH; +FURO40TA5 PO; +HYDR-3980 PO; +IV NS 0.9% 1,000 ML BAG IV ONE; +LETR2.5T8 PO; +MESA0.374 MT; +METO5TAB2 PO; -OMEP40CA13 PO; +OMEP40CA21 PO; +PALB100T PO; +RIVA10TA PO; +VENL37.591 PO
[2021-02-25 11:52] LABS: BASOPHILS % (AUTO) 1.3 % (0.0-2.0); EOSINOPHILS % (AUTO) 1.9 % (0.0-6.0); HEMATOCRIT 29 % (33-45); HEMOGLOBIN 8.9 g/dL (11.5-14.8); LYMPHOCYTES % (AUTO) 51.2 % (20.0-44.0); MEAN CORPUSCULAR HGB CONC 30 g/dl (31.0-36.0); MEAN CORPUSCULAR VOLUME 88 fL (82-100); MONOCYTES # (AUTO) 0.2 K/uL (0.1-1.30); MONOCYTES % (AUTO) 11.8 % (2.0-12.0); NEUTROPHILS # (AUTO) 0.6 K/uL (1.8-8.9); NEUTROPHILS % (AUTO) 33.8 % (43.0-81.0); PLATELET COUNT (AUTO) 59 K/uL (150-450); RED BLOOD CELL COUNT(AUTO) 3.33 MIL/uL (4.0-5.2)
[2021-02-25 11:54] LABS: WHITE BLOOD COUNT (AUTO) 1.9 K/uL (4.3-11.0)
[2021-02-25 11:56] LABS: CALCIUM, SERUM 8.2 mg/dL (8.5-10.1); CARBON DIOXIDE 28 mmol/L (21-32); CHLORIDE 105 mmol/L (98-107); CREATININE 0.8 mg/dL (0.6-1.3); GLUCOSE 94 mg/dL (74-106); POTASSIUM 4.3 mmol/L (3.5-5.1); SODIUM SERUM 138 mmol/L (136-145); UREA NITROGEN, BLOOD 17 mg/dL (7-18)
[2021-02-25 12:01] LABS: ALANINE AMINOTRANSFERASE 13 U/L (12-78); ALBUMIN 2.4 g/dL (3.4-5.0); ALKALINE PHOSPHATASE 79 U/L (46-116); ASPARTATE AMINOTRANSFERASE 17 U/L (15-37); BILIRUBIN,DIRECT 0.1 mg/dL (0.0-0.2); BILIRUBIN,TOTAL 0.2 mg/dL (0.2-1.0); LIPASE 46 U/L (73-393); TOTAL PROTEIN, SERUM 6.7 g/dL (6.4-8.2)
--- NOTE | 2021-02-25 12:06 | NUR ---
TOD [id number] from "Abdominal Pain/nausea/vomiting x3day +Blood w/stool. AOX4, NO SOB NOTED AT THIS TIME, NO SIGN OF ANY ACUTE DISTRESS NOTED. NO C/O PAIN AT THIS TIME. WILL CONTINUE WITH PLAN OF CARE
--- NOTE | 2021-02-25 12:07 | NUR ---
PIV INSERTED IN R-WRIST G#22 AND LAC G#20, GOOD BLOOD RETURN NOTED. BOTH INTACT, PATENT AND FLUSHING WELL. PT TOLERATED WELL. WILL CONTINUE TO MONITOR
[2021-02-25 13:12] LABS: EOSINOPHILS % (MANUAL) 2 % (0-4); LYMPHOCYTES % (MANUAL) 51 % (16-48); MONOCYTES % (MANUAL) 11 % (0-11.0); NEUTROPHILS % (MANUAL) 36 (42-76)
[2021-02-25 13:47] LABS: BILIRUBIN,URINE Negative (NEGATIVE); COLOR,URINE YELLOW (YELLOW); LEUKOCYTE ESTERASE ,URINE Small (NEGATIVE); NITRITE, URINE Positive (NEGATIVE); PH,URINE 6.5 (5.0-8.0); PROTEIN,URINE Negative (NEGATIVE); UGLUCOSE Negative (NEGATIVE); UROBILINOGEN,URINE 0.2 EU/dL (0.2)
[2021-02-25 14:12] LABS: RBC,URINE 0-2 /HPF (0-2)
[2021-02-25 14:14] LABS: BACTERIA,URINE Many /HPF (None Seen); SQUAMOUS EPITHELIAL CELL,UR Few /HPF (None Seen)
--- NOTE | 2021-02-25 14:22 | NUR ---
CALLED [facility] ETA 1600 HOURS
--- NOTE | 2021-02-25 15:31 | NUR ---
Patient discharged to home in stable condition. Written and verbal after care instructions given. Patient verbalizes understanding of instruction. IV ACCESS AND ID BAND REMOVED
[2021-02-25 15:32] VITALS: BP 116/60
== END | disposition home or self-care (01) ==
LOC: ER 11:24
DX: D72.819 Decreased white blood cell count, unspecified (principal); R53.1 Weakness; R10.9 Unspecified abdominal pain; Z87.11 Personal history of peptic ulcer disease; E11.22 Type 2 diabetes mellitus with diabetic chronic kidney disease; I12.9 Hypertensive chronic kidney disease with stage 1 through stage 4 chronic kidney disease, or unspecified chronic kidney disease; N18.9 Chronic kidney disease, unspecified; Z79.4 Long term (current) use of insulin; Z86.718 Personal history of other venous thrombosis and embolism; Z79.01 Long term (current) use of anticoagulants; F10.20 Alcohol dependence, uncomplicated; Z20.822 Contact with and (suspected) exposure to COVID-19
CPT/HCPCS: 36415; 74176; 80048; 80076; 81001; 83690; 84484; 85007; 85025; 87077; 87081; 87086; 87186; 87426; 96360; 99284; J7030; C9803

== ENCOUNTER 2021-03-29 21:05 | Emergency (ER) | payer MEDICARE, OTHER ==
[~2021-03-29] VITALS: Ht 160 cm; Wt 100.7 kg
[~2021-03-29 21:05] MED LIST changes: -ACET250T9 PO; -ANAS1TAB50 PO; -DOXY-326 PO; -GABA300C PO; -IV NS 0.9% 1,000 ML BAG IV ONE; -OXYC5TAB3 PO; -VIT500LI PO
[2021-03-29 22:00] LABS: BASOPHILS % (AUTO) 0.7 % (0.0-2.0); EOSINOPHILS % (AUTO) 2.4 % (0.0-6.0); HEMATOCRIT 27 % (33-45); HEMOGLOBIN 8.4 g/dL (11.5-14.8); LYMPHOCYTES # (AUTO) 0.6 K/uL (0.8-4.8); LYMPHOCYTES % (AUTO) 33.1 % (20.0-44.0); MEAN CORPUSCULAR HGB CONC 31 g/dl (31.0-36.0); MEAN CORPUSCULAR VOLUME 89 fL (82-100); MONOCYTES # (AUTO) 0.2 K/uL (0.1-1.30); MONOCYTES % (AUTO) 8.9 % (2.0-12.0); NEUTROPHILS % (AUTO) 54.9 % (43.0-81.0); PLATELET COUNT (AUTO) 70 K/uL (150-450); RED BLOOD CELL COUNT(AUTO) 3.04 MIL/uL (4.0-5.2)
--- NOTE | 2021-03-29 22:02 | NUR ---
BIBEMS C/O ABDOMINAL PAIN WITH N/V X2-3DAY. NO DIARRHEA, FEVER OR CHILLS EPORTED . PLACED IN BED 9ER, WILL CONT TO MONITOR
--- NOTE | 2021-03-29 22:04 | NUR ---
urine collected and sent to lab
[2021-03-29 22:08] LABS: BILIRUBIN,URINE Negative (NEGATIVE); COLOR,URINE YELLOW (YELLOW); LEUKOCYTE ESTERASE ,URINE Negative (NEGATIVE); NITRITE, URINE Negative (NEGATIVE); PH,URINE 8.5 (5.0-8.0); PROTEIN,URINE Negative (NEGATIVE); UGLUCOSE Negative (NEGATIVE); UROBILINOGEN,URINE 0.2 EU/dL (0.2)
[2021-03-29 22:15] LABS: WHITE BLOOD COUNT (AUTO) 1.8 K/uL (4.3-11.0)
[2021-03-29 22:22] LABS: ALBUMIN 2.3 g/dL (3.4-5.0); BILIRUBIN,DIRECT 0.1 mg/dL (0.0-0.2); BILIRUBIN,TOTAL 0.1 mg/dL (0.2-1.0); CALCIUM, SERUM 7.6 mg/dL (8.5-10.1); CREATININE 0.9 mg/dL (0.6-1.3); POTASSIUM 5.5 mmol/L (3.5-5.1); TOTAL PROTEIN, SERUM 6.2 g/dL (6.4-8.2)
[2021-03-29] MEDS ORDERED: IOHEXOL-300 100 ML VIAL IV ONE (22:40)
[2021-03-29] MEDS ORDERED: IV NS 0.9% 250 ML IV ONE (22:41)
[2021-03-29] MEDS ORDERED: CT SWABBABLE VALVE TRANS SET 1 EA INFUS.SET MC ONE (22:41)
[2021-03-29 22:46] LABS: EOSINOPHILS % (MANUAL) 2 % (0-4); LYMPHOCYTES % (MANUAL) 30 % (16-48); MONOCYTES % (MANUAL) 7 % (0-11.0); NEUTROPHILS % (MANUAL) 61 (42-76)
--- NOTE | 2021-03-30 00:45 | NUR ---
JENNIFER [phone]
--- NOTE | 2021-03-30 00:50 | NUR ---
60 MINS ETA VIA [facility] FOR TRANSPORT HOME.
--- NOTE | 2021-03-30 02:08 | NUR ---
PT WAS PICKED UP BY [facility]IA [facility] AND WAS DISCHARGED HOME. Patient discharged to home in stable condition. Written and verbal after care instructions given. Patient verbalizes understanding of instruction.
[2021-03-30 06:14] VITALS: BP 101/44
== END 2021-03-30 02:08 | disposition home or self-care (01) ==
LOC: ER 21:06
DX: R10.84 Generalized abdominal pain (principal); D72.819 Decreased white blood cell count, unspecified; I12.9 Hypertensive chronic kidney disease with stage 1 through stage 4 chronic kidney disease, or unspecified chronic kidney disease; E11.22 Type 2 diabetes mellitus with diabetic chronic kidney disease; N18.9 Chronic kidney disease, unspecified; F17.200 Nicotine dependence, unspecified, uncomplicated; Z98.890 Other specified postprocedural states; Z86.718 Personal history of other venous thrombosis and embolism; Z79.899 Other long term (current) drug therapy; Z79.4 Long term (current) use of insulin
CPT/HCPCS: 99285; J7050; Q9967; 36415; 80048-TC; 80076-TC; 83690-TC; 85025-TC

== ENCOUNTER 2021-03-31 14:21 | Inpatient (IN) | payer MEDICARE, OTHER ==
[~2021-03-31] VITALS: Ht 157.5 cm; Wt 106.6 kg
--- NOTE | 2021-03-31 14:49 | NUR ---
BIB RA 88 FROM HOME, ABDOMINAL PAIN AND BLACK STOOL X 3 DAYS,SEEN HERE 03/29/2021 WITH THE SAME COMPLAINT. RATES PAIN 04/05. ABDOMEN SOFT AND NON-DISTENDED. RESPIRATION REGULAR AND UNLABORED. WILL CONTINUE TO MONITOR THE PATIENT.
--- NOTE | 2021-03-31 14:59 | NUR ---
MOVE SHEET SUBMITTED.
[2021-03-31] MEDS ORDERED: IV NS 0.9% 1,000 ML BAG IV ONE (15:00)
[2021-03-31] MEDS ORDERED: PANTOPRAZOLE 40 MG VIAL IV ONE (15:00)
[2021-03-31] MEDS ORDERED: PANTOPRAZOLE 40 MG VIAL ONE (15:02)
[2021-03-31 15:18] LABS: BASOPHILS % (AUTO) 0.2 % (0.0-2.0); EOSINOPHILS % (AUTO) 1.3 % (0.0-6.0); HEMATOCRIT 27 % (33-45); HEMOGLOBIN 8.3 g/dL (11.5-14.8); LYMPHOCYTES # (AUTO) 0.5 K/uL (0.8-4.8); LYMPHOCYTES % (AUTO) 26.5 % (20.0-44.0); MEAN CORPUSCULAR HGB CONC 31 g/dl (31.0-36.0); MEAN CORPUSCULAR VOLUME 88 fL (82-100); MONOCYTES # (AUTO) 0.2 K/uL (0.1-1.30); MONOCYTES % (AUTO) 9.9 % (2.0-12.0); NEUTROPHILS # (AUTO) 1.1 K/uL (1.8-8.9); NEUTROPHILS % (AUTO) 62.1 % (43.0-81.0); PLATELET COUNT (AUTO) 77 K/uL (150-450); RED BLOOD CELL COUNT(AUTO) 3.02 MIL/uL (4.0-5.2)
[2021-03-31 15:21] LABS: WHITE BLOOD COUNT (AUTO) 1.8 K/uL (4.3-11.0)
[2021-03-31 15:26] LABS: CALCIUM, SERUM 7.9 mg/dL (8.5-10.1); CREATININE 0.9 mg/dL (0.6-1.3); POTASSIUM 4.9 mmol/L (3.5-5.1)
[2021-03-31 15:32] LABS: ALBUMIN 2.3 g/dL (3.4-5.0); BILIRUBIN,DIRECT 0.1 mg/dL (0.0-0.2); BILIRUBIN,TOTAL 0.2 mg/dL (0.2-1.0); TOTAL PROTEIN, SERUM 6.1 g/dL (6.4-8.2)
--- NOTE | 2021-03-31 15:38 | NUR ---
COVID SWABS DONE AND SENT TO THE LAB
[2021-03-31 16:36] LABS: EOSINOPHILS % (MANUAL) 2 % (0-4); LYMPHOCYTES % (MANUAL) 23 % (16-48); MONOCYTES % (MANUAL) 10 % (0-11.0); NEUTROPHILS % (MANUAL) 65 (42-76)
[2021-03-31] MEDS ORDERED: HOME MED MISCELLANEOUS XX SCH (17:00)
[2021-03-31] MEDS ORDERED: METOCLOPRAMIDE HCL 10 MG/10 ML UDC PO SCH (17:00)
[2021-03-31] MEDS ORDERED: SUCRALFATE 1 G TABLET PO SCH (17:00)
[2021-03-31] MEDS ORDERED: SULINDAC 200 MG TABLET PO SCH ×2 (17:00→21:56)
[2021-03-31] MEDS ORDERED: PROPRANOLOL HCL 10 MG TABLET PO SCH (17:00)
[2021-03-31] MEDS ORDERED: BACLOFEN (10 MG) 10 MG TABLET PO SCH (17:00)
--- NOTE | 2021-03-31 18:20 | NUR ---
THE PATIENT IS SLEEPING IN BED. IN NO APPARENT DISTRESS. RESPONSIVE TO VERBAL STIMULI.
--- NOTE | 2021-03-31 19:12 | NUR ---
NO BM YET. WILL ENDORSE TO ADVICE LINE RN TO COLLECT SPECIMEN ONCE THE PATIENT HAS BM.
[2021-03-31] MEDS ORDERED: MORPHINE SULFATE INJ 2 MG/ML DISP.SYRIN IV PRN (19:30)
[2021-03-31] MEDS ORDERED: Z GUARD REMEDY 2 OZ OINT TP PRN (19:30)
--- NOTE | 2021-03-31 19:45 | NUR ---
visited pt v/s stable, alert and oriented x4 comfortable at the moment.
--- NOTE | 2021-03-31 20:55 | NUR ---
pt going to room 313-1 report given to nurse polanco.
--- NOTE | 2021-03-31 21:24 | NUR ---
transferred pt to room 313-1 via ACLS protocol.
[2021-03-31 21:30] VITALS: BP 143/51
[2021-03-31 22:00] VITALS: BP 143/61
--- NOTE | 2021-03-31 22:00 | NUR ---
MS MOP WORKER NOTES RECEIVED FROM ER PER [facility] THIS 70 YO FEMALE,ALERT,ORIENTED X3-4,WITH CHIEF COMPLAINTS OF ABDOMINAL PAIN X 3DAYS AND SHE WAS SEEN HERE ON 03/29/21 ON THE SAME ISSUE.WITH KNOWN HX OF LEFT BREAST CA AND UNDERGONE CHEMOTHERAPY AUGUST TO SEPTEMBER OF THIS YEAR.SCAR NOTED ON LEFT BREAST.WITH REDNESS NOTED ON LEFT BREAST FOLD,RASHES ON RIGHT BREAST FOLD, SKIN DISCOLORATION OF LEFT LOWER LEG AND BRUISE ON LEFT THIGH.PATIENT CLAIMED SHE AMBULATE WITH WALKER,NO HX OF FALLS.SALINE LOCK RIGHT HAND INTACT AND PATENT.NOTED WHEEZES ON AUSCULTATION ON BOTH LOWER LUNG FIELD.CALL LIGHT IN REACH,NEEDS ANTICIPATED.
[2021-03-31] MEDS: PANTOPRAZOLE 40 MG VIAL IV SCH (22:10)
[2021-03-31] MEDS: SUCRALFATE 1 G TABLET PO SCH (22:10)
[2021-03-31] MEDS: METOCLOPRAMIDE HCL 10 MG/10 ML UDC PO SCH (22:11)
[2021-03-31] MEDS: BACLOFEN (10 MG) 10 MG TABLET PO SCH (22:12)
[2021-03-31] MEDS: PROPRANOLOL HCL 10 MG TABLET PO SCH (22:12)
[2021-03-31] MEDS ORDERED: DEXTROSE 50%-WATER 50 ML DISP.SYRIN IV PRN (23:00)
--- NOTE | 2021-03-31 23:00 | NUR ---
MS RN NOTES ACCU-CHECK BLOOD SUGAR CHECK 136,COVERED WITH HUMULIN R 2 UNITS PER SLIDING SCALE
[2021-03-31] MEDS: BLOOD SUGAR DIAGNOSTIC 1 EACH STRIP IN SCH (23:40)
[2021-03-31] MEDS: INSULIN REGULAR, HUMAN 100 UNIT/ML 3 ML VIAL SQ PRN (23:42)
[2021-04-01] MEDS: TRAZODONE 50 MG TABLET PO PRN ×2 (01:04→20:49)
--- NOTE | 2021-04-01 01:04 | NUR ---
MS RN NOTES C/O INSOMNIA,TRAZODONE 100 MG PO GIVEN PER PATIENT REQUEST.
--- NOTE | 2021-04-01 02:30 | NUR ---
MS RN NOTES AWAKE,ASKING FOR PAIN MANAGEMENT,OFFERED MORPHINE BUT REFUSED.
--- NOTE | 2021-04-01 06:15 | NUR ---
MS RN NOTES ACCU-CHECK BLOOD SUGAR CHECK 180,PATIENT WANTS INSULIN COVERAGE BEFORE BREAKFAST.
[2021-04-01] MEDS: BLOOD SUGAR DIAGNOSTIC 1 EACH STRIP IN SCH ×4 (06:17→22:21)
--- NOTE | 2021-04-01 06:21 | NUR ---
MS RN NOTES CALM AND QUIET ON BED,MED COMPLIANT,NO SOB,AFEBRILE.IN NO ACUTE DISTRESS.WILL ENDORSE TO DAY NURSE FOR EDVANTE.
[2021-04-01 06:44] LABS: BASOPHILS % (AUTO) 1.8 % (0.0-2.0); HEMATOCRIT 28 % (33-45); HEMOGLOBIN 8.4 g/dL (11.5-14.8); LYMPHOCYTES # (AUTO) 0.8 K/uL (0.8-4.8); LYMPHOCYTES % (AUTO) 48.9 % (20.0-44.0); MEAN CORPUSCULAR HGB CONC 30 g/dl (31.0-36.0); MEAN CORPUSCULAR VOLUME 90 fL (82-100); MONOCYTES # (AUTO) 0.2 K/uL (0.1-1.30); MONOCYTES % (AUTO) 12.7 % (2.0-12.0); NEUTROPHILS # (AUTO) 0.6 K/uL (1.8-8.9); NEUTROPHILS % (AUTO) 33.6 % (43.0-81.0); PLATELET COUNT (AUTO) 53 K/uL (150-450); RED BLOOD CELL COUNT(AUTO) 3.07 MIL/uL (4.0-5.2)
[2021-04-01 06:50] LABS: CALCIUM, SERUM 7.7 mg/dL (8.5-10.1); CREATININE 0.9 mg/dL (0.6-1.3); MAGNESIUM 2.1 mg/dL (1.8-2.4); PHOSPHORUS 4.6 mg/dL (2.5-4.9); POTASSIUM 4.8 mmol/L (3.5-5.1)
[2021-04-01 07:05] LABS: THYROID STIMULATING HORMONE 2.298 uIU/mL (0.358-3.74)
--- NOTE | 2021-04-01 07:30 | NUR ---
MS/RN OPENING NOTES RECEIVED PATIENT ON BED AWAKE ALERT AND ORIENTED X4. PATIENT IS ON 3L OXYGEN VIA NASAL CANNULA SATURATING WELL. NO COMPLAINED OF PAIN AT THIS TIME. WILL CONTINUE TO MONITOR.
[2021-04-01 08:21] LABS: WHITE BLOOD COUNT (AUTO) 1.7 K/uL (4.3-11.0)
[2021-04-01] MEDS ORDERED: IPRATROPIUM NEB FS 0.5 MG/2.5 ML AMPUL.NEB NEB PRN ×2 (08:30→12:00)
[2021-04-01] MEDS ORDERED: ALBUTEROL FS 2.5 MG/0.5 ML VIAL.NEB NEB PRN (08:30)
[2021-04-01 08:44] VITALS: BP_SYST 103; BP_DIAS 72; BP_DIAS 83
[2021-04-01] MEDS: FLUTICASONE/VILANTEROL 1 EACH BLST.W.DEV IH SCH (08:44)
[2021-04-01] MEDS: LETROZOLE 2.5 MG TABLET PO SCH (08:46)
[2021-04-01] MEDS: MOMETASONE FUROATE NASAL SUSP 17 GM BOTTLE SCH (08:46)
[2021-04-01] MEDS: PANTOPRAZOLE 40 MG VIAL IV SCH ×2 (08:47→20:36)
[2021-04-01] MEDS: FOLIC ACID 1 MG TABLET PO SCH (08:47)
[2021-04-01] MEDS: METOCLOPRAMIDE HCL 10 MG/10 ML UDC PO SCH ×2 (08:47→18:16)
[2021-04-01] MEDS: SPIRONOLACTONE 25 MG TABLET PO SCH (08:48)
[2021-04-01] MEDS: MONTELUKAST SODIUM (10MG) 10 MG TABLET PO SCH (08:48)
[2021-04-01] MEDS: SUCRALFATE 1 G TABLET PO SCH ×4 (08:50→20:35)
[2021-04-01] MEDS: POTASSIUM CHLORIDE 10 MEQ TABLET.SA PO SCH (08:50)
[2021-04-01] MEDS: BACLOFEN (10 MG) 10 MG TABLET PO SCH ×3 (08:50→18:17)
[2021-04-01] MEDS: CALCIUM CARBONATE (1250) 500 MG TABLET PO SCH (08:50)
[2021-04-01] MEDS: PROPRANOLOL HCL 10 MG TABLET PO SCH ×2 (08:55→18:17)
[2021-04-01] MEDS ORDERED: SERTRALINE HCL 50 MG TABLET PO SCH (09:00)
[2021-04-01] MEDS ORDERED: VENLAFAXINE XR 37.5 MG CAP.SR.24H PO SCH (09:00)
[2021-04-01] MEDS ORDERED: FUROSEMIDE 40 MG TABLET PO SCH (09:00)
[2021-04-01 09:45] LABS: ABG BASE EXCESS 2.7 mmol/L; ABG OXYGEN SATURATION 92.9 % (92.0-98.5); ABG PCO2 61.7 mmHg (35.0-45.0); ABG PH 7.304 (7.350-7.450); ABG PO2 72.9 mmHg (75.0-100.0); AaDO2 104.9 mmHg; COHb 0.5 % (0.5-1.5); MetHb 0.1 % (0.0-1.5); O2Hb 92.3 % (94.0-97.0); SITE, ABG Right Brachial
[2021-04-01] MEDS: ESCITALOPRAM OXALATE (10 MG) 10 MG TABLET PO SCH (09:52)
--- NOTE | 2021-04-01 10:40 | NUR ---
MS/RN NOTES PATIENT IS ALERT AND ORIENTED X4. PATIENT IS ON 3L OXYGEN VIA NASAL CANNULA SATURATING WELL. NO COMPLAINED OF PAIN. PATIENT MEN'S SWIM COACH BY OR NURSE FOR EGD PROCEDURE.
[2021-04-01] MEDS ORDERED: PALB100T PO (11:39)
[2021-04-01 12:07] LABS: LYMPHOCYTES % (MANUAL) 51 % (16-48); MONOCYTES % (MANUAL) 10 % (0-11.0); NEUTROPHILS % (MANUAL) 39 (42-76)
--- NOTE | 2021-04-01 12:30 | NUR ---
RN NOTES PATIENT IS ALERT AND ORIENTED X4. PATIENT IN NO APPARENT RESPIRATORY DISTRESS NOTED. NO COMPLAINED OF PAIN NOTED AT THIS TIME. ORDER RECEIVED FROM OR NURSE REGULAR DIET. VITAL SIGN BP 118/67 PULSE 73 TEMP 97.8 SAO2 93% RR 20. WILL CONTINUE TO MONITOR.
[2021-04-01] MEDS: methylPREDNISolone SOD SUCC 125 MG/2ML VIAL IV SCH ×2 (13:08→20:36)
[2021-04-01] MEDS: ALBUTEROL HALF STRENGTH 1.25 MG/3 ML VIAL.NEB NEB SCH ×2 (14:22→20:37)
--- NOTE | 2021-04-01 15:45 | NUR ---
MS/RN NOTES REPORT GIVEN TO CRISTOFER RICARDO FOR DEVANTE.
[2021-04-01] MEDS: FUROSEMIDE 40 MG/4 ML VIAL IV SCH ×2 (17:00→18:17)
[2021-04-01 17:17] VITALS: BP 135/65
[2021-04-01] MEDS: CLOTRIMAZOLE/BETAMETASONE DIPROPIONATE 15 GM TUBE TP SCH (18:18)
[2021-04-01] MEDS: INSULIN REGULAR, HUMAN 100 UNIT/ML 3 ML VIAL SQ PRN ×2 (18:27→21:06)
--- NOTE | 2021-04-01 19:03 | NUR ---
MS RN CLOSING NOTES RN NOTES PATIENT IS ALERT AND ORIENTED X4. ON O2 AT 3LPM. NOT IN DISTRESS. WITH NO COMPLAINTS OF PAIN AT THIS TIME. ON REGULAR DIET. WITH IV ACCESS AT LEFT HAND #24, PATENT AND SALINE LOCKED. SAFETY MEASURES IN PLACED. BED ON LOWEST, LOCKED POSITION. CALL LIGHTS WITHIN REACH. WILL ENDORSE FOR DEVANTE TO ARC AND GAS WELDER.
[2021-04-01 20:00] VITALS: BP 128/43
--- NOTE | 2021-04-01 20:07 | NUR ---
Patient is A&Ox3. Denies pain or discomfort at this time. No respiratory distress. No obvious signs of bleeding. Denies abdominal pain at this time. Patient reminded of CT of chest in the morning. Will monitor closely for signs of bleeding or fluid overload.
--- NOTE | 2021-04-01 20:20 | NUR ---
Patient c/o feeling like water is on chest and feels SOB. Patient had refused 1700 dose of lasix because she thought it was too much. On-call DNP notified with new order for Lasix one time now 40mg IV.
[2021-04-01] MEDS: MORPHINE SULFATE INJ 2 MG/ML DISP.SYRIN IV PRN (20:49)
[2021-04-01] MEDS ORDERED: FUROSEMIDE 40 MG/4 ML VIAL IV ONE (21:00)
--- NOTE | 2021-04-01 21:30 | NUR ---
Patient feels relief from lasix
--- NOTE | 2021-04-01 23:15 | NUR ---
Patient c/o anxiety, restlessness and inability to sleep despite trazodone admin at 2100. New order from Dawood Michel DNP for Xanax 0.5mg PO PRN hs for anxiety.
[2021-04-01] MEDS: ALPRAZOLAM 0.25 MG TABLET PO PRN (23:44)
[2021-04-02] MEDS: ALBUTEROL HALF STRENGTH 1.25 MG/3 ML VIAL.NEB NEB SCH ×4 (01:30→19:34)
--- NOTE | 2021-04-02 03:45 | NUR ---
MS RN NOTES PT REPORTED 8/10 GENERALIZED PAIN PRN PAIN MEDICATION PROVIDED.
[2021-04-02] MEDS: methylPREDNISolone SOD SUCC 125 MG/2ML VIAL IV SCH (05:08)
[2021-04-02] MEDS: ONDANSETRON HCL/PF 4 MG/2 ML VIAL IVP PRN (05:09)
[2021-04-02] MEDS: MORPHINE SULFATE INJ 2 MG/ML DISP.SYRIN IV PRN ×4 (05:09→20:35)
[2021-04-02] MEDS: INSULIN REGULAR, HUMAN 100 UNIT/ML 3 ML VIAL SQ PRN ×2 (06:01→12:36)
--- NOTE | 2021-04-02 06:29 | NUR ---
MS RN CLOSING NOTES Patient is A&Ox4. VSS> comfortable on 3L via NC. Tolerating breathing treatments well. No hypo or hyperglycemic reactions noted. Tolerated all due medications well. c/o abdominal pain x2 relieved by PRN Romulus. consent for CT of chest completed.
[2021-04-02] MEDS: BLOOD SUGAR DIAGNOSTIC 1 EACH STRIP IN SCH ×4 (06:41→22:35)
[2021-04-02] MEDS ORDERED: ALENDRONATE 70 MG TABLET PO SCH (07:30)
[2021-04-02 07:39] LABS: BASOPHILS % (AUTO) 0.3 % (0.0-2.0); HEMATOCRIT 28 % (33-45); HEMOGLOBIN 8.8 g/dL (11.5-14.8); LYMPHOCYTES # (AUTO) 0.4 K/uL (0.8-4.8); LYMPHOCYTES % (AUTO) 20.2 % (20.0-44.0); MEAN CORPUSCULAR HGB CONC 31 g/dl (31.0-36.0); MEAN CORPUSCULAR VOLUME 88 fL (82-100); MONOCYTES # (AUTO) 0.1 K/uL (0.1-1.30); MONOCYTES % (AUTO) 7.5 % (2.0-12.0); NEUTROPHILS # (AUTO) 1.4 K/uL (1.8-8.9); PLATELET COUNT (AUTO) 56 K/uL (150-450); RED BLOOD CELL COUNT(AUTO) 3.21 MIL/uL (4.0-5.2)
[2021-04-02 08:00] VITALS: BP 124/54
[2021-04-02 08:20] LABS: CALCIUM, SERUM 8.2 mg/dL (8.5-10.1); CREATININE 0.7 mg/dL (0.6-1.3); MAGNESIUM 1.9 mg/dL (1.8-2.4); POTASSIUM 4.4 mmol/L (3.5-5.1)
[2021-04-02] MEDS ORDERED: ERGOCALCIFEROL (VITAMIN D 2) 50,000 UNIT CAPSULE PO SCH (09:00)
[2021-04-02] MEDS: IBRANCE 100 MG PO SCH (10:57)
[2021-04-02] MEDS: SPIRONOLACTONE 25 MG TABLET PO SCH (10:58)
[2021-04-02] MEDS: SUCRALFATE 1 G TABLET PO SCH ×4 (10:58→20:35)
[2021-04-02] MEDS: CALCIUM CARBONATE (1250) 500 MG TABLET PO SCH (10:58)
[2021-04-02] MEDS: ESCITALOPRAM OXALATE (10 MG) 10 MG TABLET PO SCH (10:59)
[2021-04-02] MEDS: BACLOFEN (10 MG) 10 MG TABLET PO SCH ×3 (10:59→16:58)
[2021-04-02] MEDS: PANTOPRAZOLE 40 MG VIAL IV SCH ×2 (10:59→20:35)
[2021-04-02] MEDS: POTASSIUM CHLORIDE 10 MEQ TABLET.SA PO SCH (10:59)
[2021-04-02] MEDS: MONTELUKAST SODIUM (10MG) 10 MG TABLET PO SCH (10:59)
[2021-04-02] MEDS: FUROSEMIDE 40 MG/4 ML VIAL IV SCH ×2 (10:59→16:46)
[2021-04-02] MEDS: FOLIC ACID 1 MG TABLET PO SCH (10:59)
[2021-04-02] MEDS: PROPRANOLOL HCL 10 MG TABLET PO SCH ×2 (11:00→16:47)
[2021-04-02] MEDS: LETROZOLE 2.5 MG TABLET PO SCH (11:02)
[2021-04-02] MEDS: CLOTRIMAZOLE/BETAMETASONE DIPROPIONATE 15 GM TUBE TP SCH ×2 (11:26→17:36)
[2021-04-02] MEDS: MOMETASONE FUROATE NASAL SUSP 17 GM BOTTLE SCH (11:26)
[2021-04-02] MEDS: FLUTICASONE/VILANTEROL 1 EACH BLST.W.DEV IH SCH (11:26)
[2021-04-02] MEDS: METOCLOPRAMIDE HCL 10 MG/10 ML UDC PO SCH ×2 (11:31→16:47)
[2021-04-02] MEDS: ALPRAZOLAM 0.25 MG TABLET PO PRN ×2 (13:13→22:32)
[2021-04-02 16:00] VITALS: BP 115/56
[2021-04-02] MEDS ORDERED: RIVAROXABAN 10 MG TABLET PO SCH (17:00)
--- NOTE | 2021-04-02 19:34 | NUR ---
MS RN NOTES PATIENT IS ALERT AND ORIENTED X4. ON O2 AT 3LPM. NOT IN DISTRESS. WITH NO COMPLAINTS OF PAIN AT THIS TIME. ON REGULAR DIET. WITH IV ACCESS AT LEFT HAND #24, PATENT AND SALINE LOCKED. SAFETY MEASURES IN PLACED. BED ON LOWEST, LOCKED POSITION. CALL LIGHTS WITHIN REACH. WILL CONTINUE TO MONITOR..
[2021-04-02 20:00] VITALS: BP 118/48
--- NOTE | 2021-04-02 20:35 | NUR ---
MS RN NOTES PT REQUESTED PRN PAIN MEDICATION DESCRIBING HAVING GENERALIZED PAIN MEDICATION PROVIDED WILL CONTINUE TO MONITOR.
[2021-04-02] MEDS: TRAZODONE 50 MG TABLET PO PRN (21:24)
--- NOTE | 2021-04-02 21:24 | NUR ---
MS RN NOTES PT ASKED FOR PRN SLEEP MEDICATION MEDICATION GIVEN NGOZI CONTINUE TO MONITOR.
--- NOTE | 2021-04-02 22:32 | NUR ---
MS RN NOTES PT REPORTING SEVERE ANXIETY PRN XANAX GIVEN WILL CONTINUE TO MONITOR.
[2021-04-03] MEDS: ALBUTEROL HALF STRENGTH 1.25 MG/3 ML VIAL.NEB NEB SCH ×3 (01:30→13:30)
[2021-04-03] MEDS: MORPHINE SULFATE INJ 2 MG/ML DISP.SYRIN IV PRN ×2 (03:45→10:00)
--- NOTE | 2021-04-03 03:45 | NUR ---
MS RN NOTES PRN MORPHINE GIVEN PT REPORTING GENERALIZED PAIN . WILL CONTINUE TO MONITOR.
[2021-04-03] MEDS: ONDANSETRON HCL/PF 4 MG/2 ML VIAL IVP PRN (04:51)
--- NOTE | 2021-04-03 04:56 | NUR ---
MS RN NOTES PT REPORTING NAUSEAS PRN ZOFRAN GIVEN WILL CONTINUE TO MONITOR.
--- NOTE | 2021-04-03 06:54 | NUR ---
MS RN NOTES PT ASLEEP IN BED ABLE TO BE WOKEN UP EASILY. ON O2 AT 3LPM. NOT IN DISTRESS. WITH NO COMPLAINTS OF PAIN AT THIS TIME. WITH IV ACCESS AT LEFT HAND #24, PATENT AND SALINE LOCKED. SAFETY MEASURES IN PLACED. BED ON LOWEST, LOCKED POSITION. CALL LIGHTS WITHIN REACH. WILL ENDORSE CARE TO DAY SHIFT NURSE.
[2021-04-03] MEDS: BLOOD SUGAR DIAGNOSTIC 1 EACH STRIP IN SCH ×2 (07:53→12:23)
[2021-04-03 08:00] VITALS: BP 148/57
--- NOTE | 2021-04-03 08:03 | NUR ---
MS/RN OPENING NOTES RECEIVED PATIENT IN BED, IS ALERT AND ORIENTED X4. ON O2 AT 3LPM VIA NASAL CANNULA. NO SOB NOTED. ON REGULAR DIET. WITH IV ACCESS AT LEFT HAND #24G, PATENT AND SALINE LOCKED. SAFETY MEASURES IN PLACED. BED ON LOWEST, LOCKED POSITION. CALL LIGHTS WITHIN REACH. WILL CONTINUE TO MONITOR.
[2021-04-03] MEDS: FUROSEMIDE 40 MG/4 ML VIAL IV SCH ×2 (09:00→09:21)
[2021-04-03] MEDS: PANTOPRAZOLE 40 MG VIAL IV SCH (09:21)
[2021-04-03] MEDS: ESCITALOPRAM OXALATE (10 MG) 10 MG TABLET PO SCH (09:21)
[2021-04-03] MEDS: CALCIUM CARBONATE (1250) 500 MG TABLET PO SCH (09:21)
[2021-04-03] MEDS: METOCLOPRAMIDE HCL 10 MG/10 ML UDC PO SCH (09:21)
[2021-04-03 09:22] VITALS: BP 148/57
[2021-04-03] MEDS: MONTELUKAST SODIUM (10MG) 10 MG TABLET PO SCH (09:22)
[2021-04-03] MEDS: PROPRANOLOL HCL 10 MG TABLET PO SCH (09:22)
[2021-04-03] MEDS: SPIRONOLACTONE 25 MG TABLET PO SCH (09:22)
[2021-04-03] MEDS: BACLOFEN (10 MG) 10 MG TABLET PO SCH ×2 (09:22→12:30)
[2021-04-03] MEDS: POTASSIUM CHLORIDE 10 MEQ TABLET.SA PO SCH (09:22)
[2021-04-03] MEDS: SUCRALFATE 1 G TABLET PO SCH ×2 (09:23→12:30)
[2021-04-03] MEDS: FOLIC ACID 1 MG TABLET PO SCH (09:23)
[2021-04-03 09:32] LABS: BASOPHILS % (AUTO) 1.1 % (0.0-2.0); EOSINOPHILS % (AUTO) 0.9 % (0.0-6.0); HEMATOCRIT 27 % (33-45); HEMOGLOBIN 8.5 g/dL (11.5-14.8); LYMPHOCYTES # (AUTO) 0.8 K/uL (0.8-4.8); LYMPHOCYTES % (AUTO) 37.2 % (20.0-44.0); MEAN CORPUSCULAR HGB CONC 31 g/dl (31.0-36.0); MEAN CORPUSCULAR VOLUME 89 fL (82-100); MONOCYTES # (AUTO) 0.3 K/uL (0.1-1.30); MONOCYTES % (AUTO) 12.3 % (2.0-12.0); NEUTROPHILS # (AUTO) 1.1 K/uL (1.8-8.9); NEUTROPHILS % (AUTO) 48.5 % (43.0-81.0); PLATELET COUNT (AUTO) 61 K/uL (150-450); RED BLOOD CELL COUNT(AUTO) 3.09 MIL/uL (4.0-5.2); WHITE BLOOD COUNT (AUTO) 2.2 K/uL (4.3-11.0)
[2021-04-03] MEDS: IBRANCE 100 MG PO SCH (09:48)
[2021-04-03] MEDS: LETROZOLE 2.5 MG TABLET PO SCH (09:48)
[2021-04-03] MEDS: MOMETASONE FUROATE NASAL SUSP 17 GM BOTTLE SCH (09:49)
[2021-04-03] MEDS: FLUTICASONE/VILANTEROL 1 EACH BLST.W.DEV IH SCH (09:49)
[2021-04-03] MEDS: CLOTRIMAZOLE/BETAMETASONE DIPROPIONATE 15 GM TUBE TP SCH (09:50)
--- NOTE | 2021-04-03 09:53 | NUR ---
MS/RN NOTES PATIENT REFUSED LASIX 40MG/4ML DOSE. PER PATIENT SHE WILL BE DISCHARGE TODAY AND DOES NOT WANT TO GO IN AND OUT OF THE BATHROOM.
[2021-04-03 10:06] LABS: CALCIUM, SERUM 8.1 mg/dL (8.5-10.1); CREATININE 0.7 mg/dL (0.6-1.3); POTASSIUM 3.9 mmol/L (3.5-5.1)
--- NOTE | 2021-04-03 12:26 | NUR ---
MS/RN NOTES PATIENT'S BLOOD SUGAR RESULT IS 149, 2 UNITS INSULIN COVERAGE WAS REFUSED BY THE PATIENT.
--- NOTE | 2021-04-03 14:17 | NUR ---
MS/BOARD FILLER NOTES PATIENT IS MEDICALLY STABLE AND MD ORDERED DISCHARGE TO HOME. PATIENT IS ALERT AND ORIENTEDX4, ABLE TO MAKE NEEDS KNOWN. AMBULATORY WITH A WALKER AND ASSISTANCE. PER PATIENT SHE HAS A PRIVATE CAREGIVER AT HOME. ON OXYGEN VIA NASAL CANNULA AT 3LPM. PER PATIENT SHE HAS O2 MACHINE AT HOME. DISCHARGE PAPERS EXPLAINED TO THE PATIENT, PATIENT VERBALIZED UNDERSTANDING, ALL BELONGINGS ACCOUNTED FOR. IV ACCESS TAKEN OUT. PATIENT COMFORTABLE. EMT PICKED UP PATIENT TO BE RETURNED HOME.
[2021-04-03] MEDS ORDERED: PANTOPRAZOLE 40 MG TABLET.DR PO SCH (21:00)
[2021-04-26] MEDS ORDERED: IBRANCE 100 MG PO SCH (09:00)
== END 2021-04-03 14:45 | disposition home or self-care (01) | DRG 391 ==
LOC: ER 14:27 → TELE 21:02 → MED 21:30
PROVIDERS: ADMIT Nurse Practitioner Acute Care; ATTEND Nurse Practitioner Acute Care
PROC: 0DB68ZX Excision of Stomach, Via Natural or Artificial Opening Endoscopic, Diagnostic (ICD-10-PCS; principal; 2021-04-01)
DX: K29.70 Gastritis, unspecified, without bleeding (principal); J96.21 Acute and chronic respiratory failure with hypoxia; J96.22 Acute and chronic respiratory failure with hypercapnia; D68.59 Other primary thrombophilia; I13.0 Hypertensive heart and chronic kidney disease with heart failure and stage 1 through stage 4 chronic kidney disease, or unspecified chronic kidney disease; E66.2 Morbid (severe) obesity with alveolar hypoventilation; Z68.41 Body mass index [BMI] 40.0-44.9, adult; J90 Pleural effusion, not elsewhere classified; J98.11 Atelectasis; I50.32 Chronic diastolic (congestive) heart failure; F33.1 Major depressive disorder, recurrent, moderate; K76.6 Portal hypertension; E87.2 Acidosis; E44.0 Moderate protein-calorie malnutrition; N18.9 Chronic kidney disease, unspecified; K42.9 Umbilical hernia without obstruction or gangrene; E11.22 Type 2 diabetes mellitus with diabetic chronic kidney disease; Z86.718 Personal history of other venous thrombosis and embolism; Z98.890 Other specified postprocedural states; Z79.51 Long term (current) use of inhaled steroids; Z85.3 Personal history of malignant neoplasm of breast; Z87.11 Personal history of peptic ulcer disease; Z79.811 Long term (current) use of aromatase inhibitors; Z79.899 Other long term (current) drug therapy; D72.819 Decreased white blood cell count, unspecified; E65 Localized adiposity; K58.9 Irritable bowel syndrome, unspecified; Z74.09 Other reduced mobility; Z79.01 Long term (current) use of anticoagulants; Z79.83 Long term (current) use of bisphosphonates; G89.4 Chronic pain syndrome; J44.9 Chronic obstructive pulmonary disease, unspecified; K21.9 Gastro-esophageal reflux disease without esophagitis; I25.10 Atherosclerotic heart disease of native coronary artery without angina pectoris; L30.4 Erythema intertrigo; K74.60 Unspecified cirrhosis of liver; F10.20 Alcohol dependence, uncomplicated; Y90.9 Presence of alcohol in blood, level not specified; F17.200 Nicotine dependence, unspecified, uncomplicated; E78.5 Hyperlipidemia, unspecified; D69.6 Thrombocytopenia, unspecified; F41.9 Anxiety disorder, unspecified; K80.20 Calculus of gallbladder without cholecystitis without obstruction; N26.1 Atrophy of kidney (terminal)
CPT/HCPCS: 36415; 36600; 71045-TC; 71250-TC; 80048-TC; 80061-TC; 80076-TC; 82803-TC; 82962-TC; 83690-TC; 83735-TC; 84100-TC; 84443-TC; 85025-TC; 85730-TC; 86850-TC; 87081-TC; 88305-TC; 88313-TC; 88342; 93307-TC; 94799-TC; 97112-TC; 97116-TC; 97530-TC; C9113; C9803; G0378; J1815; J1940; J2270; J2405; J2704; J2930; J3490; J7030; J8597

== ENCOUNTER 2021-07-16 00:57 | Inpatient (IN) | payer MEDICARE, OTHER ==
[~2021-07-16] VITALS: Ht 162.6 cm; Wt 105.2 kg
--- NOTE | 2021-07-16 01:05 | NUR ---
PATIENT BIBRA FROM HOME C/O "HAVING TROUBLE BREATHING". PATIENT GIVEN ALBUTEROL TX DRY CLEANER HELPER FROM [employer] WITH SOME RELIEF. PATIENT IS A/O X 4, RR EVEN AND UNLABORED, NO SOB NOTED. PATIENT CONNECTED TO CARIDAC MONITOR AND POX.
[2021-07-16 01:56] LABS: HEMATOCRIT 28 % (33-45); HEMOGLOBIN 8.6 g/dL (11.5-14.8); LYMPHOCYTES # (AUTO) 0.9 K/uL (0.8-4.8); LYMPHOCYTES % (AUTO) 40.9 % (20.0-44.0); MEAN CORPUSCULAR HGB CONC 31 g/dl (31.0-36.0); MEAN CORPUSCULAR VOLUME 92 fL (82-100); MONOCYTES # (AUTO) 0.3 K/uL (0.1-1.30); MONOCYTES % (AUTO) 13.4 % (2.0-12.0); NEUTROPHILS # (AUTO) 0.9 K/uL (1.8-8.9); NEUTROPHILS % (AUTO) 40.7 % (43.0-81.0); RED BLOOD CELL COUNT(AUTO) 3.03 MIL/uL (4.0-5.2); WHITE BLOOD COUNT (AUTO) 2.2 K/uL (4.3-11.0)
[2021-07-16] MEDS ORDERED: methylPREDNISolone SOD SUCC 125 MG/2ML VIAL IV ONE (02:00)
--- NOTE | 2021-07-16 02:04 | NUR ---
RAD AT BEDSIDE
[2021-07-16 02:06] LABS: CALCIUM, SERUM 8.2 mg/dL (8.5-10.1); CARBON DIOXIDE 38 mmol/L (21-32); CHLORIDE 107 mmol/L (98-107); GLUCOSE 135 mg/dL (74-106); POTASSIUM 5.1 mmol/L (3.5-5.1); SODIUM SERUM 145 mmol/L (136-145); UREA NITROGEN, BLOOD 20 mg/dL (7-18)
[2021-07-16 02:19] LABS: ALANINE AMINOTRANSFERASE 12 U/L (12-78); ALBUMIN 2.1 g/dL (3.4-5.0); ALKALINE PHOSPHATASE 90 U/L (46-116); ASPARTATE AMINOTRANSFERASE 24 U/L (15-37); BILIRUBIN,DIRECT 0.1 mg/dL (0.0-0.2); BILIRUBIN,TOTAL 0.1 mg/dL (0.2-1.0); TOTAL PROTEIN, SERUM 6.3 g/dL (6.4-8.2)
[2021-07-16 02:41] LABS: D-DIMER 1.48 mg/L(FEU (0.17-0.50)
[2021-07-16] MEDS ORDERED: methylPREDNISolone SOD SUCC 125 MG/2ML VIAL ONE (02:59)
[2021-07-16] MEDS ORDERED: IOHEXOL-350 100 ML VIAL IV ONE ×2 (04:24→08:31)
[2021-07-16] MEDS ORDERED: IV NS 0.9% 250 ML IV ONE ×2 (04:25→08:31)
--- NOTE | 2021-07-16 05:57 | NUR ---
PATIENT TAKEN TO CT
--- NOTE | 2021-07-16 06:52 | NUR ---
PATIENT HARD STICK, IV INFILTARTED DURING CTA. ER MD MADE AWARE, OK TO HOLD CTA. ORDER FOR MIDLINE PLACEMNET
--- NOTE | 2021-07-16 06:57 | NUR ---
MOVE PACKET SUBMITTED
[2021-07-16 07:15] LABS: EOSINOPHILS % (MANUAL) 4 % (0-4); LYMPHOCYTES % (MANUAL) 42 % (16-48); MONOCYTES % (MANUAL) 9 % (0-11.0); NEUTROPHILS % (MANUAL) 45 (42-76)
[2021-07-16 07:35] LABS: PLATELET COUNT (AUTO) 91 K/uL (150-450)
--- NOTE | 2021-07-16 07:37 | NUR ---
PAGED [facility].
--- NOTE | 2021-07-16 08:15 | NUR ---
TAKEN TO CT
[2021-07-16] MEDS ORDERED: CT SWABBABLE VALVE TRANS SET 1 EA INFUS.SET MC ONE (08:31)
--- NOTE | 2021-07-16 08:53 | NUR ---
BACK FROM CT
[2021-07-16] MEDS ORDERED: ASCO-352 PO (09:40)
[2021-07-16] MEDS ORDERED: ZOLP10TA2 PO (09:40)
[2021-07-16] MEDS ORDERED: TRAM50TA2 PO (09:40)
[2021-07-16] MEDS ORDERED: POLY15DR40 EACHEYE (09:40)
[2021-07-16] MEDS ORDERED: ALBU18HF2 INH (09:40)
[2021-07-16] MEDS ORDERED: INSU100I30 SQ (09:40)
[2021-07-16] MEDS ORDERED: MAGN400O6 PO (09:40)
[2021-07-16] MEDS ORDERED: DOCU-342 PO (09:40)
[2021-07-16] MEDS ORDERED: GABA-532 PO (09:40)
[2021-07-16] MEDS ORDERED: TIOT18CA3 INH (09:40)
[2021-07-16] MEDS ORDERED: POLYVINYL ALCOHOL 15 ML BOTTLE EACHEYE PRN (12:30)
[2021-07-16] MEDS ORDERED: ENOXAPARIN SODIUM 40 MG/0.4 ML DISP.SYRIN SQ SCH (12:30)
[2021-07-16] MEDS ORDERED: DEXTROSE 50%-WATER 50 ML DISP.SYRIN IV PRN (12:30)
[2021-07-16] MEDS: methylPREDNISolone SOD SUCC 40 MG/ML VIAL IV SCH ×2 (13:40→20:33)
[2021-07-16] MEDS: GABAPENTIN 100 MG CAPSULE PO SCH ×2 (13:40→17:15)
--- NOTE | 2021-07-16 14:02 | NUR ---
ROOM 313-2
--- NOTE | 2021-07-16 14:10 | NUR ---
REPORT GIVEN TO FILIBERTO RICARDO FOR DEVANTE
[2021-07-16] MEDS ORDERED: GABAPENTIN 300 MG CAPSULE ONE (14:12)
[2021-07-16] MEDS ORDERED: methylPREDNISolone SOD SUCC 40 MG/ML VIAL ONE (14:12)
[2021-07-16 14:45] VITALS: BP 133/72
[2021-07-16] MEDS: IPRATROPIUM NEB FS 0.5 MG/2.5 ML AMPUL.NEB NEB SCH ×3 (15:30→23:47)
[2021-07-16] MEDS: ALBUTEROL HALF STRENGTH 1.25 MG/3 ML VIAL.NEB NEB SCH ×3 (15:30→23:47)
--- NOTE | 2021-07-16 15:48 | NUR ---
RN NOTES ADMITTED TO UNIT A 71 Y/O FEMALE AT 1440 VIA GURNEY ACCOMPANIED BY Juan RECIO AND Arun CARLSON. PT IS A/O X4. ABLE TO MAKE NEEDS KNOWN WITH ADMITTING DIAGNOSIS OF COPD EXACERBATION. PT ON 02 VIA N/C AT 4LPM AT THIS TIME, TOLERATING WELL, BREATHING EVEN AND UNLABORED. PT WITH MIDLINE ON GABRIEL G#18 INTACT, PATENT AND FLUSHES WELL. PHOTOS OF SKIN ISSUES TAKEN AND FILED ON HER CHART. PT PLACED ON EXTERNAL DAIRY CATTLE FARM MANAGER WITH READING OF NSR WITH HR ON THE 70'S NOTED, NO C/O CARDIAC DISTRESS VOICED. SAFETY MEASURES IMPLEMENTED: BED PLACED IN LOWEST LOCKED POSITION WITH SR UP X2. HOB ELEVATED, CALL LIGHT AND BEDSIDE TABLE PLACED W/I EASY REACH OF PT. WILL CONTINUE TO MONITOR PT'S STATUS.
[2021-07-16 16:00] VITALS: BP 116/49
--- NOTE | 2021-07-16 16:49 | NUR ---
RN NOTES PT SEEN AND EVALUATED BY DR FOSTER WITH ORDER TO DECREASE O2 THERAPY FROM 4LPM VIA N/C TO 3LPM. PT TOLERATING WELL WITH NO ACUTE RESPIRATORY DISTRESS NOTED. WILL CONTINUE TO MONITOR.
[2021-07-16] MEDS: PROPRANOLOL HCL 10 MG TABLET PO SCH (17:00)
[2021-07-16] MEDS: SULINDAC 200 MG TABLET PO SCH (17:00)
--- NOTE | 2021-07-16 17:00 | NUR ---
RN NOTES SULINDAC NOT GIVEN, PER PHARMACY C/O MARIVEL, MED NOT AVAILABLE AT THIS TIME.
[2021-07-16] MEDS: MONTELUKAST SODIUM (10MG) 10 MG TABLET PO SCH (17:16)
[2021-07-16] MEDS: ASCORBIC ACID 500 MG TABLET PO SCH (17:16)
[2021-07-16] MEDS: DOCUSATE SODIUM 100 MG CAPSULE PO SCH (17:16)
[2021-07-16] MEDS: CALCIUM CARBONATE (1250) 500 MG TABLET PO SCH (17:17)
[2021-07-16] MEDS: RIVAROXABAN 10 MG TABLET PO SCH (17:18)
[2021-07-16] MEDS: ACETAMINOPHEN 325 MG TABLET PO PRN ×2 (17:25→20:49)
[2021-07-16] MEDS: LETROZOLE 2.5 MG TABLET PO SCH (17:25)
[2021-07-16] MEDS: BLOOD SUGAR DIAGNOSTIC 1 EACH STRIP IN SCH ×2 (17:47→21:08)
[2021-07-16] MEDS: IBRANCE 100 MG PO SCH (18:21)
--- NOTE | 2021-07-16 18:50 | NUR ---
JUVENILE OFFICER CLOSING NOTES PT IN BED AWAKE AND TALKING ON THE PHONE AT THIS TIME. HOB ELEVATED. A/O X4. ABLE TO MAKE NEEDS KNOWN. ON 02 VIA N/C AT 3LPM AT THIS TIME, TOLERATING WELL, BREATHING EVEN AND UNLABORED. MIDLINE ON GABRIEL G#18 INTACT, PATENT AND FLUSHES WELL. EXTERNAL MOLDER VACUUM SHOWS CURRENT READING OF NSR WITH HR ON THE 70'S, NO C/O CARDIAC DISTRESS VOICED. ALL NEEDS AND CARE ATTENDED WELL. SAFETY MEASURES MAINTAINED: BED PLACED IN LOWEST LOCKED POSITION WITH SR UP X2. HOB ELEVATED, CALL LIGHT AND BEDSIDE TABLE PLACED W/I EASY REACH OF PT. PT FOR URINE COLLECTION FOR CULTURE AND URINALYSIS. WILL ENDORSE DEVANTE TO DEHYDROGENATION CONVERTER HELPER NURSE.
--- NOTE | 2021-07-16 19:30 | NUR ---
OPENING RN NOTES Patient is awake, A&Ox4. Denies pain or discomfort. No distress noted. No s/s of hypo or hyperglycemic reactions. GABRIEL midline #18G intact and patent. Will continue to monitor patient.
[2021-07-16 20:00] VITALS: BP 120/69
--- NOTE | 2021-07-16 20:07 | NUR ---
Attempted to collect urine specimen but patient had BM also. Reminded patient we need to collect urine. Patient says I want to sleep well tonight can we try again in the morning. Will toilet as needed and will attempt for urine specimen.
[2021-07-16 20:18] LABS: ABG BASE EXCESS 3.8 mmol/L; ABG PCO2 55.7 mmHg (35.0-45.0); ABG PH 7.352 (7.350-7.450); ABG PO2 65.3 mmHg (75.0-100.0); COHb 0.5 % (0.5-1.5); MetHb 0.2 % (0.0-1.5); SITE, ABG Left Radial; VENT MODE, BG N/C 32%
[2021-07-16] MEDS: BACLOFEN (10 MG) 10 MG TABLET PO SCH (20:33)
[2021-07-16] MEDS: SPIRONOLACTONE 25 MG TABLET PO SCH (20:33)
[2021-07-16] MEDS: TRAZODONE 50 MG TABLET PO SCH (21:05)
[2021-07-16] MEDS: INSULIN REGULAR, HUMAN 100 UNIT/ML 3 ML VIAL SQ PRN (21:08)
--- NOTE | 2021-07-16 22:29 | NUR ---
Patient consistently staying at 100% O2 sat on 3L via NC. Titrated to 2L checked back on patient and O2 sat 96% no signs of distress. patient sleeping at this time. Will continue to monitor.
--- NOTE | 2021-07-16 23:26 | NUR ---
continues to tolerate 2L via NC O2 sat 93%. No signs of distress.
[2021-07-17] VITALS: BP 126/54
--- NOTE | 2021-07-17 | NUR ---
When RT checked on pt. O2 was 88% on 2L after breathing treatment 95% increased to 2.5L. will continue nto monitor.
--- NOTE | 2021-07-17 00:01 | NUR ---
RT PT REQ TO REFUSE THE 0330 TX BECAUSE SHE WANTED TO SLEEP. HALEIGH FULLER WAS AT BEDSIDE AND IS AWARE. WILL CONTINUE TO MONITOR. PT REMAINS ON 2.5 LPM O2
[2021-07-17] MEDS: ONDANSETRON HCL/PF 4 MG/2 ML VIAL IVP PRN (00:14)
[2021-07-17] MEDS: ALBUTEROL HALF STRENGTH 1.25 MG/3 ML VIAL.NEB NEB SCH ×6 (03:30→23:30)
[2021-07-17] MEDS: IPRATROPIUM NEB FS 0.5 MG/2.5 ML AMPUL.NEB NEB SCH ×6 (03:30→23:30)
[2021-07-17] MEDS: ACETAMINOPHEN 325 MG TABLET PO PRN (04:05)
[2021-07-17] MEDS: methylPREDNISolone SOD SUCC 40 MG/ML VIAL IV SCH ×3 (04:05→21:19)
[2021-07-17] MEDS: BLOOD SUGAR DIAGNOSTIC 1 EACH STRIP IN SCH (06:51)
[2021-07-17] MEDS: INSULIN REGULAR, HUMAN 100 UNIT/ML 3 ML VIAL SQ PRN ×3 (06:52→17:51)
[2021-07-17 06:57] LABS: CALCIUM, SERUM 7.9 mg/dL (8.5-10.1); CREATININE 0.9 mg/dL (0.6-1.3); MAGNESIUM 2.3 mg/dL (1.8-2.4); POTASSIUM 5.6 mmol/L (3.5-5.1)
--- NOTE | 2021-07-17 07:05 | NUR ---
Patient awake, A&Ox4. Toileted again at 0640 but BM in stool again. Patient does not want straight cath. Will endorse. Overnight patient was okay having mild anxiety after 0130 resp treatment but able to calm down and fall back asleep. C/o constipation but able to have 2 BMs after prune juice. Satting well on 2.5L.
[2021-07-17 07:08] LABS: BASOPHILS % (AUTO) 0.3 % (0.0-2.0); HEMATOCRIT 25 % (33-45); HEMOGLOBIN 7.6 g/dL (11.5-14.8); LYMPHOCYTES # (AUTO) 0.2 K/uL (0.8-4.8); LYMPHOCYTES % (AUTO) 9.6 % (20.0-44.0); MEAN CORPUSCULAR HGB CONC 31 g/dl (31.0-36.0); MEAN CORPUSCULAR VOLUME 91 fL (82-100); MONOCYTES # (AUTO) 0.1 K/uL (0.1-1.30); MONOCYTES % (AUTO) 4.4 % (2.0-12.0); NEUTROPHILS # (AUTO) 2.2 K/uL (1.8-8.9); NEUTROPHILS % (AUTO) 85.7 % (43.0-81.0); PLATELET COUNT (AUTO) 68 K/uL (150-450); RED BLOOD CELL COUNT(AUTO) 2.69 MIL/uL (4.0-5.2); WHITE BLOOD COUNT (AUTO) 2.5 K/uL (4.3-11.0)
--- NOTE | 2021-07-17 07:10 | NUR ---
RN OPENING NOTE RECEIVED PATIENT IN BED. A/O X4. ON 02 AT 2 LPM VIA NC. DENIES SOB. IN NO APPARENT DISTRESS. TELE READING SHOWS ST 115. IV ACCESS ON GABRIEL MIDLINE #18 G, INTACT AND PATENT. SAFETY MEASURES MAINTAINED. BED IN LOWEST POSITION, BRAKES LOCKED. SIDE RAILS UP X2. CALL LIGHT WITHIN REACH. WILL CONTINUE PLAN OF CARE.
[2021-07-17] MEDS: BACLOFEN (10 MG) 10 MG TABLET PO SCH ×2 (08:47→21:19)
[2021-07-17] MEDS: PANTOPRAZOLE 40 MG TABLET.DR PO SCH (08:47)
[2021-07-17] MEDS: DOCUSATE SODIUM 100 MG CAPSULE PO SCH ×2 (08:47→17:26)
[2021-07-17] MEDS: GABAPENTIN 100 MG CAPSULE PO SCH ×3 (08:47→17:26)
[2021-07-17] MEDS: ASCORBIC ACID 500 MG TABLET PO SCH ×2 (08:47→17:26)
[2021-07-17] MEDS: CALCIUM CARBONATE (1250) 500 MG TABLET PO SCH ×2 (08:47→17:26)
[2021-07-17] MEDS: SPIRONOLACTONE 25 MG TABLET PO SCH (08:47)
[2021-07-17] MEDS: PROPRANOLOL HCL 10 MG TABLET PO SCH (08:48)
[2021-07-17] MEDS: SULINDAC 200 MG TABLET PO SCH ×2 (08:54→17:26)
[2021-07-17 09:12] VITALS: BP 131/56
--- NOTE | 2021-07-17 10:08 | NUR ---
RN NOTE ENDORSED AND GAVE REPORT TO HALEIGH BOGGS, FOR DEVANTE
[2021-07-17 10:25] LABS: BAND % (MANUAL) 2 % (0.0-5.0); LYMPHOCYTES % (MANUAL) 8 % (16-48); MONOCYTES % (MANUAL) 5 % (0-11.0); NEUTROPHILS % (MANUAL) 85 (42-76)
[2021-07-17] MEDS ORDERED: DEXTROSE 50%-WATER 50 ML DISP.SYRIN IV PRN (12:00)
[2021-07-17] MEDS: BLOOD SUGAR DIAGNOSTIC 1 EACH STRIP VI SCH ×3 (12:13→21:49)
[2021-07-17] MEDS: BACITRACIN ZINC OINT PACKET 1 EA PACKET TP SCH ×2 (13:41→17:26)
[2021-07-17] MEDS: MAG HYDROX/AL HYDROX/SIMETH 30 ML UDC PO PRN (14:55)
[2021-07-17 16:48] VITALS: BP 122/53
[2021-07-17] MEDS: RIVAROXABAN 10 MG TABLET PO SCH (17:26)
[2021-07-17] MEDS: MONTELUKAST SODIUM (10MG) 10 MG TABLET PO SCH (17:26)
[2021-07-17] MEDS: LETROZOLE 2.5 MG TABLET PO SCH (17:26)
[2021-07-17] MEDS: Z GUARD REMEDY 2 OZ OINT TP PRN (17:56)
[2021-07-17] MEDS ORDERED: IBRANCE 100 MG PO SCH (18:00)
[2021-07-17] MEDS: IBRANCE 100 MG PO SCH (18:47)
--- NOTE | 2021-07-17 18:58 | NUR ---
DRYWALL METAL STUD WORKER CLOSING NOTE PATIENT IS LYING IN BED ASLEEP. IV GABRIEL MIDLINE. PAIN MANAGED. NO S/S OF DISTRESS. ALL PATIENT NEEDS MET. SAFETY MEASURES FOLLOWED: BED AT LOWEST POSITION, RAILS UP X2, CALL WARD WITHIN REACH. WILL ENDORSE TO SKI LIFT OPERATOR FOR DEVANTE.
--- NOTE | 2021-07-17 19:42 | NUR ---
IMMIGRATION MANAGER OPENING NOTES RECEIVED PATIENT IN BED. A/O X4. ON 02 AT 2 LPM VIA NC. DENIES SOB. IN NO APPARENT DISTRESS. TELE READING SHOWS ST. IV ACCESS ON GABRIEL MIDLINE #18 G, INTACT AND PATENT. SAFETY MEASURES MAINTAINED. BED IN LOWEST POSITION, BRAKES LOCKED. SIDE RAILS UP X2. CALL LIGHT WITHIN REACH. CALL LIGHT WITHIN REACH. BEDSIDE TABLE WITHIN REACH. WILL CONTINUE TO MONITOR.
[2021-07-17 20:25] VITALS: BP 128/58
[2021-07-17] MEDS: TRAZODONE 50 MG TABLET PO SCH (21:19)
--- NOTE | 2021-07-17 22:00 | NUR ---
RN NOTES PT REFUSED INSULIN AT THIS ITME PT STATED " I WANT TO GOT O SLEEP YOU KEEP WAKING ME UP" RISK AND BENEFIT EXPLAINED X3 REFUSED X3 WILL CONTINUE TO MONITOR.
--- NOTE | 2021-07-17 23:46 | NUR ---
RT NOTE PT REFUSED TX AT THIS TIME. NO RESPIRATORY DISTRESS NOTED. RN KORINA NOTIFIED.
[2021-07-17] MEDS: *INSULIN REGULAR(HUMULIN R)HUM 100 UNIT/ML VIAL SQ PRN (23:59)
[2021-07-18] VITALS (7 sets, daily range): BP systolic 111–130; BP diastolic 53–76
--- NOTE | 2021-07-18 00:03 | NUR ---
RN NOTES PT REQUESTING PAIN MEDICATION PRN TRAMADOL WILL BE GIVEN WILL CONTINUE TO MONITOR.
[2021-07-18] MEDS: TRAMADOL HCL 50 MG TABLET PO PRN ×2 (00:06→20:36)
[2021-07-18] MEDS: ALBUTEROL HALF STRENGTH 1.25 MG/3 ML VIAL.NEB NEB SCH ×5 (03:13→19:34)
[2021-07-18] MEDS: IPRATROPIUM NEB FS 0.5 MG/2.5 ML AMPUL.NEB NEB SCH ×5 (03:13→19:34)
--- NOTE | 2021-07-18 03:13 | NUR ---
RT NOTE PT REFUSED TX AT THIS TIME. PT WANTS TO SLEEP. NO RESPIRATORY DISTRESS NOTED. RN KORINA AWARE.
[2021-07-18 03:24] LABS: BILIRUBIN,URINE NEGATIVE (NEGATIVE); COLOR,URINE YELLOW (YELLOW); LEUKOCYTE ESTERASE ,URINE NEGATIVE (NEGATIVE); NITRITE, URINE POSITIVE (NEGATIVE); PROTEIN,URINE NEGATIVE (NEGATIVE); UGLUCOSE >=1000 mg/dL (NEGATIVE); UROBILINOGEN,URINE 0.2 EU/dL (0.2)
[2021-07-18] MEDS: ACETAMINOPHEN 325 MG TABLET PO PRN (05:16)
[2021-07-18] MEDS: methylPREDNISolone SOD SUCC 40 MG/ML VIAL IV SCH ×3 (05:44→20:35)
[2021-07-18 06:46] LABS: BASOPHILS % (AUTO) 0.1 % (0.0-2.0); HEMATOCRIT 24 % (33-45); HEMOGLOBIN 7.5 g/dL (11.5-14.8); LYMPHOCYTES # (AUTO) 0.3 K/uL (0.8-4.8); LYMPHOCYTES % (AUTO) 7.9 % (20.0-44.0); MEAN CORPUSCULAR HGB CONC 31 g/dl (31.0-36.0); MEAN CORPUSCULAR VOLUME 92 fL (82-100); MONOCYTES # (AUTO) 0.1 K/uL (0.1-1.30); MONOCYTES % (AUTO) 4.3 % (2.0-12.0); NEUTROPHILS # (AUTO) 2.8 K/uL (1.8-8.9); NEUTROPHILS % (AUTO) 87.7 % (43.0-81.0); PLATELET COUNT (AUTO) 77 K/uL (150-450); RED BLOOD CELL COUNT(AUTO) 2.64 MIL/uL (4.0-5.2); WHITE BLOOD COUNT (AUTO) 3.2 K/uL (4.3-11.0)
[2021-07-18] MEDS: INSULIN REGULAR, HUMAN 100 UNIT/ML 3 ML VIAL SQ PRN ×3 (06:50→17:09)
--- NOTE | 2021-07-18 06:54 | NUR ---
MS RN CLOSING NOTES PATIENT IN BED. A/O X4. ON 02 AT 2 LPM VIA NC. DENIES SOB. IN NO APPARENT DISTRESS. IV ACCESS ON GABRIEL MIDLINE #18 G, INTACT AND PATENT. SAFETY MEASURES MAINTAINED. BED IN LOWEST POSITION, BRAKES LOCKED. SIDE RAILS UP X2. CALL LIGHT WITHIN REACH BEDSIDE TABLE WITHIN REACH. ALL NURSING NEEDS ME THROUGHOUT THE SHIFT. LL DUE MEDS GIVEN AND TOLERATED WELL WILL CONTINUE TO MONITOR.
[2021-07-18] MEDS: BLOOD SUGAR DIAGNOSTIC 1 EACH STRIP VI SCH ×4 (07:02→21:20)
[2021-07-18 07:40] LABS: ALBUMIN 1.9 g/dL (3.4-5.0); BILIRUBIN,TOTAL 0.1 mg/dL (0.2-1.0); CALCIUM, SERUM 8.5 mg/dL (8.5-10.1); CREATININE 0.9 mg/dL (0.6-1.3); MAGNESIUM 2.5 mg/dL (1.8-2.4); PHOSPHORUS 3.6 mg/dL (2.5-4.9); POTASSIUM 5.1 mmol/L (3.5-5.1); TOTAL PROTEIN, SERUM 5.7 g/dL (6.4-8.2)
--- NOTE | 2021-07-18 07:49 | NUR ---
LICSW OPENING NOTES RECEIVED PATIENT IN BED. A/O X4. ON 02 AT 2 LPM VIA NC. DENIES SOB. IN NO APPARENT DISTRESS. IV ACCESS ON GABRIEL MIDLINE #18 G, INTACT AND PATENT. SAFETY MEASURES MAINTAINED. BED IN LOWEST POSITION, BRAKES LOCKED. SIDE RAILS UP X2. CALL LIGHT WITHIN REACH BEDSIDE TABLE WITHIN REACH. WILL CONTINUE TO MONITOR
[2021-07-18] MEDS: ASCORBIC ACID 500 MG TABLET PO SCH ×2 (09:04→17:10)
[2021-07-18] MEDS: BACLOFEN (10 MG) 10 MG TABLET PO SCH ×2 (09:04→20:36)
[2021-07-18] MEDS: CALCIUM CARBONATE (1250) 500 MG TABLET PO SCH ×2 (09:05→17:10)
[2021-07-18] MEDS: PANTOPRAZOLE 40 MG TABLET.DR PO SCH (09:05)
[2021-07-18] MEDS: GABAPENTIN 100 MG CAPSULE PO SCH ×3 (09:05→17:10)
[2021-07-18] MEDS: DOCUSATE SODIUM 100 MG CAPSULE PO SCH ×2 (09:05→17:10)
[2021-07-18] MEDS: SULINDAC 200 MG TABLET PO SCH ×2 (09:10→17:10)
[2021-07-18] MEDS: BACITRACIN ZINC OINT PACKET 1 EA PACKET TP SCH ×2 (09:11→17:12)
--- NOTE | 2021-07-18 11:52 | NUR ---
WOUND CARE CONSULT: PT REFUSED SKIN ASSESSMENT. DISCUSSED SKIN PROTECTION WITH NURSING STAFF. PLASTIC SURGERY TEAM PREVIOUSLY SAW PT FOR SKIN ISSUE. MD IN AGREEMENT WITH PLAN OF CARE.
[2021-07-18] MEDS ORDERED: ALBUTEROL HALF STRENGTH 1.25 MG/3 ML VIAL.NEB NEB PRN (16:00)
[2021-07-18] MEDS: MONTELUKAST SODIUM (10MG) 10 MG TABLET PO SCH (17:10)
[2021-07-18] MEDS: RIVAROXABAN 10 MG TABLET PO SCH (17:11)
[2021-07-18] MEDS: LETROZOLE 2.5 MG TABLET PO SCH (17:12)
[2021-07-18] MEDS: Z GUARD REMEDY 2 OZ OINT TP PRN (17:13)
[2021-07-18] MEDS: IBRANCE 100 MG PO SCH (17:43)
--- NOTE | 2021-07-18 18:45 | NUR ---
MS RN CLOSING NOTES PATIENT IN BED. A/O X4. ON 02 AT 2 LPM VIA NC. DENIES SOB. IN NO APPARENT DISTRESS. IV ACCESS ON GABRIEL MIDLINE #18 G, INTACT AND PATENT. SAFETY MEASURES MAINTAINED. BED IN LOWEST POSITION, BRAKES LOCKED. SIDE RAILS UP X2. ALL NEEDS MET, CALL LIGHT WITHIN REACH BEDSIDE TABLE WITHIN REACH. WILL ENDORSE TO THE NEXT SHIFT.
--- NOTE | 2021-07-18 19:20 | NUR ---
MS/RN OPENING NOTE PT RESTING IN BED, EASILY AROUSABLE TO STIMULI. A/OX4. SHE DENIES PAIN AT THIS TIME. ON O2 @2LPM VIA NC. NO SOB NOTED. IV SITE GABRIEL MIDLINE #18G INTACT/PATENT/FLUSHES WELL, DRESSING C/D/I. PT IN NO ACUTE DISTRESS. SAFETY MEASURES IN PLACE, BED IN LOWEST LOCKED POSITION, S/R UPX2, CALL LIGHT WITHIN REACH. WILL CONT TO MONITOR.
[2021-07-18] MEDS: *INSULIN REGULAR(HUMULIN R)HUM 100 UNIT/ML VIAL SQ PRN (21:17)
[2021-07-18] MEDS: TRAZODONE 50 MG TABLET PO SCH (21:18)
[2021-07-19] VITALS: BP 134/67
[2021-07-19] MEDS: IPRATROPIUM NEB FS 0.5 MG/2.5 ML AMPUL.NEB NEB SCH ×7 (02:48→23:14)
[2021-07-19] MEDS: ALBUTEROL HALF STRENGTH 1.25 MG/3 ML VIAL.NEB NEB SCH ×7 (02:48→23:14)
[2021-07-19] MEDS: TRAMADOL HCL 50 MG TABLET PO PRN ×3 (03:02→20:26)
[2021-07-19 04:00] VITALS: BP 131/58
[2021-07-19] MEDS: INSULIN REGULAR, HUMAN 100 UNIT/ML 3 ML VIAL SQ PRN ×3 (06:23→17:24)
[2021-07-19 06:45] LABS: BASOPHILS % (AUTO) 0.1 % (0.0-2.0); EOSINOPHILS % (AUTO) 0.1 % (0.0-6.0); HEMATOCRIT 25 % (33-45); HEMOGLOBIN 7.8 g/dL (11.5-14.8); LYMPHOCYTES # (AUTO) 0.3 K/uL (0.8-4.8); LYMPHOCYTES % (AUTO) 13.4 % (20.0-44.0); MEAN CORPUSCULAR HGB CONC 31 g/dl (31.0-36.0); MEAN CORPUSCULAR VOLUME 91 fL (82-100); MONOCYTES # (AUTO) 0.2 K/uL (0.1-1.30); MONOCYTES % (AUTO) 9.7 % (2.0-12.0); NEUTROPHILS # (AUTO) 1.8 K/uL (1.8-8.9); NEUTROPHILS % (AUTO) 76.7 % (43.0-81.0); PLATELET COUNT (AUTO) 65 K/uL (150-450); RED BLOOD CELL COUNT(AUTO) 2.75 MIL/uL (4.0-5.2); WHITE BLOOD COUNT (AUTO) 2.3 K/uL (4.3-11.0)
[2021-07-19 07:07] LABS: CALCIUM, SERUM 7.9 mg/dL (8.5-10.1); CREATININE 0.9 mg/dL (0.6-1.3); MAGNESIUM 2.4 mg/dL (1.8-2.4); PHOSPHORUS 3.6 mg/dL (2.5-4.9)
--- NOTE | 2021-07-19 07:07 | NUR ---
MS/RN CLOSING NOTE PT RESTING IN BED, EASILY AWAKENS TO STIMULI. SHE DENIES ANY PAIN AT THIS TIME. ON O2 @2LPM VIA NC. NO SOB NOTED. NO ACUTE EVENTS DURING THE NIGHT. SAFETY MEASURES MAINTAINED. ALL NEEDS ATTENDED TO.
--- NOTE | 2021-07-19 07:30 | NUR ---
MS/RN OPENING NOTE PATIENT SLEEPS IN BED, EASILY AROUSABLE TO STIMULI. A/OX4. SHE DENIES PAIN AT THIS TIME. ON O2 @2LPM VIA NC. NO SOB NOTED. IV SITE GABRIEL MIDLINE #18G INTACT/PATENT/FLUSHES WELL. NO ACUTE DISTRESS NOTED. NO PAIN NOTED. EVEN AND UNLABORED BREATHS.SAFETY MEASURES IN PLACE, BED IN LOWEST LOCKED POSITION, S/R UPX2, CALL LIGHT AND TABLE WITHIN REACH. WILL CONTINUE TO MONITOR.
[2021-07-19] MEDS: BLOOD SUGAR DIAGNOSTIC 1 EACH STRIP VI SCH ×4 (07:37→21:00)
[2021-07-19 08:00] VITALS: BP 131/56
[2021-07-19] MEDS: BACLOFEN (10 MG) 10 MG TABLET PO SCH ×2 (08:53→20:26)
[2021-07-19] MEDS: ASCORBIC ACID 500 MG TABLET PO SCH ×2 (08:53→16:26)
[2021-07-19] MEDS: DOCUSATE SODIUM 100 MG CAPSULE PO SCH ×2 (08:53→16:26)
[2021-07-19] MEDS: CALCIUM CARBONATE (1250) 500 MG TABLET PO SCH ×2 (08:53→16:26)
[2021-07-19] MEDS: PANTOPRAZOLE 40 MG TABLET.DR PO SCH (08:53)
[2021-07-19] MEDS: methylPREDNISolone SOD SUCC 40 MG/ML VIAL IV SCH ×2 (08:54→20:26)
[2021-07-19] MEDS: GABAPENTIN 100 MG CAPSULE PO SCH ×3 (08:54→16:27)
[2021-07-19] MEDS: SULINDAC 200 MG TABLET PO SCH ×2 (09:01→17:12)
[2021-07-19] MEDS: BACITRACIN ZINC OINT PACKET 1 EA PACKET TP SCH ×2 (09:07→17:14)
[2021-07-19] MEDS: MAG HYDROX/AL HYDROX/SIMETH 30 ML UDC PO PRN ×2 (11:21→22:19)
--- NOTE | 2021-07-19 13:57 | NUR ---
Pt. requested to speak with SW regarding transportation. Pt. requested that she wants SW to contact [facility] for transportation once she gets discharged from hospital. SW contact Case Management and they will get her transportation once pt. is ready to leave hospital.
[2021-07-19 16:00] VITALS: BP 139/62
[2021-07-19] MEDS: GUAIFENESIN LA 600 MG TABLET.SA PO SCH ×2 (16:26→20:26)
[2021-07-19] MEDS: RIVAROXABAN 10 MG TABLET PO SCH (16:31)
[2021-07-19] MEDS: MONTELUKAST SODIUM (10MG) 10 MG TABLET PO SCH (17:35)
[2021-07-19] MEDS: LETROZOLE 2.5 MG TABLET PO SCH (17:35)
[2021-07-19] MEDS: IBRANCE 100 MG PO SCH (19:08)
--- NOTE | 2021-07-19 19:28 | NUR ---
MS/RN CLOSING NOTE PATIENT SLEEPS IN BED, EASILY AROUSABLE TO STIMULI. A/OX4. SHE DENIES PAIN AT THIS TIME. ON O2 @2LPM VIA NC. NO SOB NOTED. IV SITE GABRIEL MIDLINE #18G INTACT/PATENT/FLUSHES WELL. NO ACUTE DISTRESS NOTED. NO PAIN NOTED. EVEN AND UNLABORED BREATHS.DUE MEDS AND TREATMENTS GIVEN ORDERED.SAFETY MEASURES IN PLACE, BED IN LOWEST LOCKED POSITION, S/R UPX2, CALL LIGHT AND TABLE WITHIN REACH. WILL ENDORSE TO ONCOMING SHIFT FOR DEVANTE..
--- NOTE | 2021-07-19 19:51 | NUR ---
Patient is A&Ox4. Awake, in no signs of distress. Denies SOB. VSS. Continues on O2 2L via NC, O2 sat 97%. States that her generalized pain is starting up again, will give PRN tramadol as per order. Safety measures in place. Will continue to monitor pt.
[2021-07-19 20:00] VITALS: BP 133/58
[2021-07-19] MEDS: TRAZODONE 50 MG TABLET PO SCH (21:00)
[2021-07-19] MEDS: *INSULIN REGULAR(HUMULIN R)HUM 100 UNIT/ML VIAL SQ PRN (21:30)
[2021-07-20] VITALS: BP 112/62
[2021-07-20] MEDS: TRAMADOL HCL 50 MG TABLET PO PRN ×3 (02:55→20:37)
--- NOTE | 2021-07-20 03:49 | NUR ---
Patient seen called nurse into room c/o SOB at 0330, patient noted to have labored breathing and lung sounds diminished /congested. RT called in and gave pt. breathing treatment. Minutes after breathing treatment patient is still SOB simply saying "it is hard to breathe, I feel like something is on my chest. Can I have Lasix?" Patient does not have order for lasix. MD sanitation engineer notified with order for STAT ABGs and STAT Chest Xray. Orders input and proper personnel notified. Throughout whole scenario patients O2 stayed between 90-95% on 2L via NC. Addendum: 07/20/21 at 0530 by JONNY TORRES RN Pt. unable to say more than 1-2 words per breath.
[2021-07-20 04:00] VITALS: BP 131/76
[2021-07-20 04:06] LABS: ABG BASE EXCESS 9.2 mmol/L; ABG OXYGEN SATURATION 92.2 % (92.0-98.5); ABG PCO2 51.2 mmHg (35.0-45.0); ABG PH 7.445 (7.350-7.450); ABG PO2 65.1 mmHg (75.0-100.0); AaDO2 74.1 mmHg; COHb 0.4 % (0.5-1.5); MetHb 0.1 % (0.0-1.5); O2Hb 91.7 % (94.0-97.0); SITE, ABG Right Radial; VENT MODE, BG NASAL CANNULA
[2021-07-20] MEDS: IPRATROPIUM NEB FS 0.5 MG/2.5 ML AMPUL.NEB NEB SCH ×6 (04:16→23:35)
[2021-07-20] MEDS: ALBUTEROL HALF STRENGTH 1.25 MG/3 ML VIAL.NEB NEB SCH ×6 (04:17→23:35)
--- NOTE | 2021-07-20 04:30 | NUR ---
Called after hours number to read stat CXR as soon as possible.
--- NOTE | 2021-07-20 05:42 | NUR ---
ABGs taken at 0400 cancelled 0800
--- NOTE | 2021-07-20 05:43 | NUR ---
Patient in bed sleeping though easy to wake, looks more comfortable but still sounds congested and breathing looks labored and deep, 23BPM, O2 continues to be at 90-92% on 2L via NC.
[2021-07-20] MEDS: INSULIN REGULAR, HUMAN 100 UNIT/ML 3 ML VIAL SQ PRN ×3 (06:52→17:31)
--- NOTE | 2021-07-20 06:56 | NUR ---
Patient is currently awake and reports SOB has much improved, but still feels like there is weight on her chest. Patient appears comfortable in bed. Stable at this time. No other complaints at this time.
[2021-07-20] MEDS: BLOOD SUGAR DIAGNOSTIC 1 EACH STRIP VI SCH ×4 (07:02→21:55)
[2021-07-20 07:28] LABS: BASOPHILS % (AUTO) 0.8 % (0.0-2.0); EOSINOPHILS % (AUTO) 0.1 % (0.0-6.0); HEMATOCRIT 25 % (33-45); LYMPHOCYTES # (AUTO) 0.4 K/uL (0.8-4.8); LYMPHOCYTES % (AUTO) 20.2 % (20.0-44.0); MEAN CORPUSCULAR HGB CONC 31 g/dl (31.0-36.0); MEAN CORPUSCULAR VOLUME 90 fL (82-100); MONOCYTES # (AUTO) 0.2 K/uL (0.1-1.30); MONOCYTES % (AUTO) 9.4 % (2.0-12.0); NEUTROPHILS # (AUTO) 1.5 K/uL (1.8-8.9); NEUTROPHILS % (AUTO) 69.5 % (43.0-81.0); PLATELET COUNT (AUTO) 82 K/uL (150-450); RED BLOOD CELL COUNT(AUTO) 2.82 MIL/uL (4.0-5.2); WHITE BLOOD COUNT (AUTO) 2.1 K/uL (4.3-11.0)
--- NOTE | 2021-07-20 07:40 | NUR ---
MS RN OPENING NOTES RECEIVED PT AWAKE, A/OX4, NO SIGNS OF ACUTE DISTRESS NOTED. ON O2 @2LPM VIA N/C, SATURATION @94%, NO SOB NOTED, BREATHING EVEN AND UNLABORED. WITH IV ACCESS ON GABRIEL ML #18g, INTACT AND PATENT. NO C/OPAIN AT THIS TIME. SAFETY PRECAUTIONS MAINTAINED, BED LOCKED AND IN LOWEST POSITION, SR UP X2, CALL LIGHT PLACED WITHIN EASY REACH. WILL CONTINUE TO MONITOR.
[2021-07-20 08:00] VITALS: BP 141/73
[2021-07-20] MEDS: PANTOPRAZOLE 40 MG TABLET.DR PO SCH (08:07)
[2021-07-20] MEDS: methylPREDNISolone SOD SUCC 40 MG/ML VIAL IV SCH (08:08)
[2021-07-20] MEDS: GABAPENTIN 100 MG CAPSULE PO SCH ×3 (08:08→17:16)
[2021-07-20] MEDS: GUAIFENESIN LA 600 MG TABLET.SA PO SCH ×2 (08:08→20:36)
[2021-07-20] MEDS: BACLOFEN (10 MG) 10 MG TABLET PO SCH ×2 (08:08→20:36)
[2021-07-20] MEDS: ASCORBIC ACID 500 MG TABLET PO SCH ×2 (08:08→17:23)
[2021-07-20] MEDS: DOCUSATE SODIUM 100 MG CAPSULE PO SCH ×2 (08:08→17:16)
[2021-07-20] MEDS: CALCIUM CARBONATE (1250) 500 MG TABLET PO SCH ×2 (08:08→17:16)
[2021-07-20] MEDS: SULINDAC 200 MG TABLET PO SCH ×2 (08:09→17:18)
[2021-07-20 08:11] LABS: CREATININE 0.7 mg/dL (0.6-1.3); POTASSIUM 5.3 mmol/L (3.5-5.1)
[2021-07-20] MEDS: BACITRACIN ZINC OINT PACKET 1 EA PACKET TP SCH ×2 (09:10→17:17)
[2021-07-20 16:00] VITALS: BP 112/59
[2021-07-20] MEDS: MONTELUKAST SODIUM (10MG) 10 MG TABLET PO SCH (17:16)
[2021-07-20] MEDS: LETROZOLE 2.5 MG TABLET PO SCH (17:17)
[2021-07-20] MEDS: IBRANCE 100 MG PO SCH (17:17)
[2021-07-20] MEDS: RIVAROXABAN 10 MG TABLET PO SCH (17:19)
--- NOTE | 2021-07-20 17:49 | NUR ---
RN NOTES PT REQUESTING FOR MOM AND TO INCREASE HER COLACE FOR BOWEL MANAGEMENT. DR. RODRIGUEZ MADE AWARE WITH ORDERS RECEIVED, CARRIED OUT.
[2021-07-20] MEDS ORDERED: MAGNESIUM HYDROXIDE 30 ML UDC PO PRN (18:00)
[2021-07-20] MEDS ORDERED: SODIUM POLYSTYRENE SULFONATE 15 G/60 ML BOTTLE PO ONE (18:30)
--- NOTE | 2021-07-20 18:39 | NUR ---
MS RN CLOSING NOTES PT RESTING IN BED, AROUSABLE EASILY. A/OX4, NO SIGNS OF ACUTE DISTRESS NOTED. ON O2 @2LPM VIA N/C, SATURATION @95%, DENIES SOB AT THIS TIME, BUT STILL NOTED WITH WHEEZING. BREATHING TX ADMINISTERED BY RT ORDERED. BREATHING EVEN AND UNLABORED. WITH IV ACCESS ON GABRIEL ML #18G, INTACT AND PATENT. NO C/O PAIN OR DISCOMFORT AT THIS TIME. ASSISTED TO BSC NEEDED, PT HAD A LARGE BM THIS AFTERNOON. SAFETY PRECAUTIONS MAINTAINED, BED LOCKED AND IN LOWEST POSITION, HOB ELEVATED, SR UP X2, CALL LIGHT PLACED WITHIN EASY REACH. WILL ENDORSE TO NEXT SHIFT.
[2021-07-20 20:00] VITALS: BP 112/55
[2021-07-20] MEDS: TRAZODONE 50 MG TABLET PO SCH (21:32)
[2021-07-20] MEDS: *INSULIN REGULAR(HUMULIN R)HUM 100 UNIT/ML VIAL SQ PRN (21:41)
[2021-07-21] MEDS: ONDANSETRON HCL/PF 4 MG/2 ML VIAL IVP PRN ×3 (02:28→21:26)
[2021-07-21] MEDS: TRAMADOL HCL 50 MG TABLET PO PRN ×2 (02:37→08:23)
[2021-07-21] MEDS: IPRATROPIUM NEB FS 0.5 MG/2.5 ML AMPUL.NEB NEB SCH ×6 (03:30→23:30)
[2021-07-21] MEDS: ALBUTEROL HALF STRENGTH 1.25 MG/3 ML VIAL.NEB NEB SCH ×6 (03:30→23:30)
--- NOTE | 2021-07-21 03:49 | NUR ---
RT NOTE PT REFUSED TX AT THIS TIME. PT WANTS TO SLEEP. HALEIGH FULLER NOTIFIED AND IS AWARE. NO RESPIRATORY DISTRESS NOTED.
[2021-07-21] MEDS: ACETAMINOPHEN 325 MG TABLET PO PRN ×2 (05:09→12:51)
[2021-07-21] MEDS: BLOOD SUGAR DIAGNOSTIC 1 EACH STRIP VI SCH ×4 (06:25→22:13)
[2021-07-21] MEDS: INSULIN REGULAR, HUMAN 100 UNIT/ML 3 ML VIAL SQ PRN ×3 (06:28→16:44)
--- NOTE | 2021-07-21 06:46 | NUR ---
RN CLOSING NOTES Patient is awake, A&Ox4. Patient did have 1 episode of emesis (undigested food) overnight but ceased with PRN zofran. Patient able to have 2 BMs and good urine output. Medicated x2 with tramadol as per order for leg/ankle pain -relief felt. Otherwise, no SOB or any distress.
[2021-07-21 07:00] LABS: BASOPHILS # (AUTO) 0.1 K/uL (0.0-0.2); BASOPHILS % (AUTO) 1.6 % (0.0-2.0); EOSINOPHILS % (AUTO) 2.1 % (0.0-6.0); HEMATOCRIT 27 % (33-45); HEMOGLOBIN 8.5 g/dL (11.5-14.8); LYMPHOCYTES # (AUTO) 1.2 K/uL (0.8-4.8); LYMPHOCYTES % (AUTO) 36.9 % (20.0-44.0); MEAN CORPUSCULAR HGB CONC 31 g/dl (31.0-36.0); MEAN CORPUSCULAR VOLUME 91 fL (82-100); MONOCYTES # (AUTO) 0.3 K/uL (0.1-1.30); MONOCYTES % (AUTO) 9.7 % (2.0-12.0); NEUTROPHILS # (AUTO) 1.6 K/uL (1.8-8.9); NEUTROPHILS % (AUTO) 49.7 % (43.0-81.0); PLATELET COUNT (AUTO) 67 K/uL (150-450); RED BLOOD CELL COUNT(AUTO) 2.96 MIL/uL (4.0-5.2); WHITE BLOOD COUNT (AUTO) 3.2 K/uL (4.3-11.0)
[2021-07-21 07:22] LABS: CALCIUM, SERUM 7.9 mg/dL (8.5-10.1); CREATININE 0.8 mg/dL (0.6-1.3); POTASSIUM 4.6 mmol/L (3.5-5.1)
[2021-07-21] MEDS: PANTOPRAZOLE 40 MG TABLET.DR PO SCH (07:27)
--- NOTE | 2021-07-21 07:30 | NUR ---
MS RN OPENING NOTES RECEIVED PT AWAKE, A/OX4, NO SIGNS OF ACUTE DISTRESS NOTED. ON O2 @2LPM VIA N/C, SATURATING WELL NO SOB NOTED, BREATHING EVEN AND UNLABORED. WITH IV ACCESS ON GABRIEL ML G#18, INTACT AND PATENT. NO C/O PAIN AT THIS TIME. SAFETY PRECAUTIONS MAINTAINED, BED LOCKED AND IN LOWEST POSITION, SR UP X2, CALL LIGHT PLACED WITHIN EASY REACH. WILL CONTINUE TO MONITOR ACCORDINGLY.
[2021-07-21 08:00] VITALS: BP_SYST 104; BP_SYST 115; BP_DIAS 50; BP_DIAS 54
[2021-07-21] MEDS: GUAIFENESIN LA 600 MG TABLET.SA PO SCH ×2 (08:14→21:31)
[2021-07-21] MEDS: GABAPENTIN 100 MG CAPSULE PO SCH ×3 (08:14→16:04)
[2021-07-21] MEDS: DOCUSATE SODIUM 100 MG CAPSULE PO SCH ×2 (08:14→16:04)
[2021-07-21] MEDS: ASCORBIC ACID 500 MG TABLET PO SCH ×2 (08:14→16:04)
[2021-07-21] MEDS: BACLOFEN (10 MG) 10 MG TABLET PO SCH ×2 (08:15→21:31)
[2021-07-21] MEDS: BACITRACIN ZINC OINT PACKET 1 EA PACKET TP SCH ×2 (08:15→16:05)
[2021-07-21] MEDS: CALCIUM CARBONATE (1250) 500 MG TABLET PO SCH ×2 (08:15→16:04)
[2021-07-21] MEDS: SULINDAC 200 MG TABLET PO SCH ×2 (08:15→16:03)
[2021-07-21] MEDS: methylPREDNISolone SOD SUCC 40 MG/ML VIAL IV SCH (08:16)
[2021-07-21] MEDS ORDERED: ERGOCALCIFEROL (VITAMIN D 2) 50,000 UNIT CAPSULE PO SCH (09:00)
--- NOTE | 2021-07-21 11:04 | NUR ---
RN NOTES BLOOD SUGAR CHECKED, 243, INSULIN COVERAGE GIVEN ORDERED.
[2021-07-21] MEDS ORDERED: TIOT18CA3 INH (12:30)
[2021-07-21] MEDS ORDERED: MONT10TA22 PO (12:30)
[2021-07-21] MEDS ORDERED: ALBU18HF2 INH (12:30)
[2021-07-21] MEDS ORDERED: PRED20TA PO (12:30)
[2021-07-21] MEDS ORDERED: POTA8TAB3 PO (12:30)
[2021-07-21] MEDS ORDERED: FLUT1BLS INH (12:30)
[2021-07-21] MEDS ORDERED: LEVO750T46 PO (12:30)
[2021-07-21 16:00] VITALS: BP 134/56
[2021-07-21] MEDS: RIVAROXABAN 10 MG TABLET PO SCH (16:06)
[2021-07-21] MEDS: LETROZOLE 2.5 MG TABLET PO SCH (17:20)
[2021-07-21] MEDS: IBRANCE 100 MG PO SCH (17:20)
[2021-07-21] MEDS: MONTELUKAST SODIUM (10MG) 10 MG TABLET PO SCH (17:20)
--- NOTE | 2021-07-21 18:00 | NUR ---
HALEIGH NOTES BLOOD SUGAR CHECKED, 100, NO INSULIN COVERAGE NEEDED. Addendum: 07/21/21 at 1831 by BHAVIN ALVARADO RN WRONG DOCUMENTATION. BLOOD SUGAR 272, INSULIN COVERAGE GIVEN ORDERED.
--- NOTE | 2021-07-21 18:32 | NUR ---
MS RN CLOSING NOTES PT RESTING IN BED, ASLEEP, EASILY AWAKEN BY VERBAL AND TACTILE STIMULI. NO SIGNS OF ACUTE DISTRESS NOTED. ON O2 @2LPM VIA N/C, SATURATING WELL NO SOB NOTED, BREATHING EVEN AND UNLABORED. WITH IV ACCESS ON GABRIEL ML G#18, INTACT AND PATENT. NO C/O PAIN AT THIS TIME. SAFETY PRECAUTIONS MAINTAINED, BED LOCKED AND IN LOWEST POSITION, SR UP X2, CALL LIGHT PLACED WITHIN EASY REACH. DUE MEDS GIVEN ORDERED. ALL NEEDS ATTENDED AND MET. WILL ENDORSE TO ONCOMING SHIFT FOR DEVANTE.
[2021-07-21 20:00] VITALS: BP 127/57
--- NOTE | 2021-07-21 20:47 | NUR ---
MS RN OPENING NOTES: RECEIVED PATIENT AWAKE IN BED, BED IN LOW POSITION, CALL LIGHTS WITHIN REACH, NO COMPLAIN OF PAIN AND DISCOMFORT AT THIS TIME, PATIENT IS A/OX4 ABLE TO EXPRESS NEEDS AMBULATORY WITH SUPERVISION, ON BEDSIDE COMMODE, PATIENT KEPT CLEAN AND DRY, ON O2 INHALATION AT 2LPM INFUSING WELL, NO SOB NOTED AT 93-94%, PATIENT KEPT CLEAN AND DRY, ALL NEEDS MET, WILL CONTINUE TO MONITOR.
[2021-07-21] MEDS: TRAZODONE 50 MG TABLET PO SCH (21:31)
[2021-07-21] MEDS: *INSULIN REGULAR(HUMULIN R)HUM 100 UNIT/ML VIAL SQ PRN (22:13)
[2021-07-22] MEDS: TRAMADOL HCL 50 MG TABLET PO PRN ×2 (02:02→08:46)
[2021-07-22] MEDS: MAG HYDROX/AL HYDROX/SIMETH 30 ML UDC PO PRN ×2 (02:07→10:20)
[2021-07-22] MEDS: ALBUTEROL HALF STRENGTH 1.25 MG/3 ML VIAL.NEB NEB SCH ×3 (03:03→11:07)
[2021-07-22] MEDS: IPRATROPIUM NEB FS 0.5 MG/2.5 ML AMPUL.NEB NEB SCH ×3 (03:03→11:07)
[2021-07-22] MEDS: ACETAMINOPHEN 325 MG TABLET PO PRN (03:42)
[2021-07-22] MEDS: INSULIN REGULAR, HUMAN 100 UNIT/ML 3 ML VIAL SQ PRN ×2 (06:51→12:44)
--- NOTE | 2021-07-22 07:01 | NUR ---
MS RN CLOSING NOTES RECEIVED PATIENT SLEEP IN BED COMFORTABLY, AROUSABLE TO VERBAL STIMULI, BED IN LOW POSITION,CALL LIGHTS WITHIN REACH, NO COMPLAIN OF PAIN AND DISCOMFORT AT THIS TIME, PATIENT IS AMBULATORY WITH ASSISTANCE, ABLE TO TRANSFER FROM BED TO BED SIDE COMMODE, ON O2 INHALATION AT 2LPM VIA NASAL CANNULA NO SOB OR ANY RESP DISTRESS WAS OBSERVED, WITH GABRIEL MIDLINE SL, PATIENT KEPT CLEAN AND DRY, ALL NEEDS MET, ENDORSE TO INCOMING SHIFT.
--- NOTE | 2021-07-22 07:30 | NUR ---
RN MS NOTES PT AWAKE, ALERT AND ORIENTED, SITTING IN BED, NOT IN DISTRESS, NO COMPLAINT OF PAIN OR ANY DISCOMFORT, CALL LIGHT WITHIN REACH.
--- NOTE | 2021-07-22 07:56 | NUR ---
RT NOTE PATIENT AWAKE/ALERT. REFUSED TX AT THIS TIME. SpO2 98%, HR 73, RR 18. RN NOTIFIED. NO SOB NOTED AT THIS TIME.
[2021-07-22 08:00] VITALS: BP 111/55
[2021-07-22] MEDS: methylPREDNISolone SOD SUCC 40 MG/ML VIAL IV SCH (08:39)
[2021-07-22] MEDS: SULINDAC 200 MG TABLET PO SCH (08:39)
[2021-07-22] MEDS: BACLOFEN (10 MG) 10 MG TABLET PO SCH (08:40)
[2021-07-22] MEDS: GABAPENTIN 100 MG CAPSULE PO SCH ×2 (08:40→12:45)
[2021-07-22] MEDS: DOCUSATE SODIUM 100 MG CAPSULE PO SCH (08:40)
[2021-07-22] MEDS: CALCIUM CARBONATE (1250) 500 MG TABLET PO SCH (08:40)
[2021-07-22] MEDS: ASCORBIC ACID 500 MG TABLET PO SCH (08:40)
[2021-07-22] MEDS: PANTOPRAZOLE 40 MG TABLET.DR PO SCH (08:40)
[2021-07-22] MEDS: GUAIFENESIN LA 600 MG TABLET.SA PO SCH (08:40)
[2021-07-22] MEDS: BLOOD SUGAR DIAGNOSTIC 1 EACH STRIP VI SCH ×2 (08:40→12:45)
[2021-07-22] MEDS: BACITRACIN ZINC OINT PACKET 1 EA PACKET TP SCH (08:41)
[2021-07-22] MEDS: ONDANSETRON HCL/PF 4 MG/2 ML VIAL IVP PRN (08:46)
[2021-07-22] MEDS ORDERED: METOCLOPRAMIDE HCL 10 MG/2 ML VIAL IV ONE (11:30)
--- NOTE | 2021-07-22 13:30 | NUR ---
RN MS NOTES PT IN BED, AWAKE, ALERT AND ORIENTED, NO COMPLAINT OF PAIN, RESPIRATIONS NORMAL, ON O2 AT 2LPM VIA N/C, O2 SAT AT 96%, ABLE TO SIT UP IN BED, ASSISTED TO BEDSIDE COMMODE NEEDED, SEEN BY DR. WEST, DISCHARGE ORDER GIVEN, DISCHARGE AND MEDICATION INSTRUCTIONS PROVIDED TO PT, VERBALIZED UNDERSTANDING, PER PT, HER SISTER AND CAREGIVER WIILL BE RECEIVING HER AT HER HOME, NEW PRESCRIPTION ELECTRONICALLY SENT BY MD TO PT'S PREFERRED PHARMACY, PT REFUSED SKIN ASSESSMENT AND PHOTOS , STATED THAT SHE DID A LOT OGF THEM ALREADY, BELONGINGS ACCOUNTED FOR, PICKED UP BY 2 AMBULANCE PERSONNEL, LEFT VIA GUERNEY IN STABLE CONDITION.
== END 2021-07-22 13:30 | disposition home or self-care (01) | DRG 205 ==
LOC: ER 01:02 → TRANSITION 13:19 → TELE 14:16 → MED 07-19 04:04
PROVIDERS: ADMIT Nurse Practitioner Acute Care; ATTEND Internal Medicine
PROC: 05HF33Z Insertion of Infusion Device into Left Cephalic Vein, Percutaneous Approach (ICD-10-PCS; principal; 2021-07-16)
DX: E66.2 Morbid (severe) obesity with alveolar hypoventilation (principal); I50.33 Acute on chronic diastolic (congestive) heart failure; J96.21 Acute and chronic respiratory failure with hypoxia; J96.22 Acute and chronic respiratory failure with hypercapnia; I13.0 Hypertensive heart and chronic kidney disease with heart failure and stage 1 through stage 4 chronic kidney disease, or unspecified chronic kidney disease; J44.1 Chronic obstructive pulmonary disease with (acute) exacerbation; D68.59 Other primary thrombophilia; J90 Pleural effusion, not elsewhere classified; E44.0 Moderate protein-calorie malnutrition; D61.818 Other pancytopenia; J98.11 Atelectasis; K76.6 Portal hypertension; M48.54XA Collapsed vertebra, not elsewhere classified, thoracic region, initial encounter for fracture; F17.210 Nicotine dependence, cigarettes, uncomplicated; K74.60 Unspecified cirrhosis of liver; Z20.822 Contact with and (suspected) exposure to COVID-19; Z86.718 Personal history of other venous thrombosis and embolism; Z98.890 Other specified postprocedural states; Z79.01 Long term (current) use of anticoagulants; Z79.4 Long term (current) use of insulin; Z79.83 Long term (current) use of bisphosphonates; Z85.3 Personal history of malignant neoplasm of breast; Z79.899 Other long term (current) drug therapy; Z79.811 Long term (current) use of aromatase inhibitors; Z79.51 Long term (current) use of inhaled steroids; N18.9 Chronic kidney disease, unspecified; F10.20 Alcohol dependence, uncomplicated; E78.5 Hyperlipidemia, unspecified; Y90.9 Presence of alcohol in blood, level not specified; E11.40 Type 2 diabetes mellitus with diabetic neuropathy, unspecified; M19.90 Unspecified osteoarthritis, unspecified site; K80.20 Calculus of gallbladder without cholecystitis without obstruction; F41.9 Anxiety disorder, unspecified; F32.A Depression, unspecified; I27.21 Secondary pulmonary arterial hypertension; E87.5 Hyperkalemia; S21.001A Unspecified open wound of right breast, initial encounter; S21.002A Unspecified open wound of left breast, initial encounter; X58.XXXA Exposure to other specified factors, initial encounter; Y92.9 Unspecified place or not applicable; L98.9 Disorder of the skin and subcutaneous tissue, unspecified; E11.22 Type 2 diabetes mellitus with diabetic chronic kidney disease
CPT/HCPCS: 36410; 36415; 36600; 71045-TC; 76604-TC; 80048-TC; 80053-TC; 80076-TC; 81001; 82803-TC; 82962-TC; 83735-TC; 83880; 84100-TC; 84484-TC; 85025-TC; 85378-TC; 85730-TC; 87081-TC; 87086-TC; 94760-TC; 94799-TC; C9803; G0378; J1815; J2405; J2765; J2920; J2930; J7050; Q9967